=== PATIENT | male | born 1950 | race Caucasian/White ===

== ENCOUNTER 2017-10-03 16:51 | Inpatient (IN) | payer OTHER ==
[~2017-10-03] VITALS: Ht 167.6 cm; Wt 102.0 kg
[2017-10-03] MEDS ORDERED: ASPIRIN 81 MG CHEW PO STA (17:13)
--- NOTE | 2017-10-03 17:17 | EMERGENCY ROOM VISIT NOTE ---
History Report prepared by Aleja: Fermin Rob Under the Supervision of: Dr. Adelso Mitchell D.O. First contact with patient: 17:08 Chief Complaint: CHEST PAIN Stated Complaint: CHEST PAIN. WEAKNESS Nursing Triage Summary: "fullness in chest into neck", x3-4 days. Lighteheaded, CERVANTES and SOB. Hx of heart cath 4 years ago, "they didn't find nothing" History of Present Illness The patient is a 67 year old male who presents to the Emergency Room with complaints of an intermittent chest pain and pressure that began yesterday. The patient states that his chest pain feels like a heaviness and radiates into his neck. His states that the patient has had a bad headache for 1 week and appears more fatigued than usual. She notes that he has also had a sluggish gait. The patient states he does not have a headache at the moment. He complains of nausea. He denies abdominal pain, and vomiting. He reports a history of a heart attack 4 years ago and denies stent placement. Source of History: patient Onset: 1 day ago Position: chest Quality: pressure Timing: intermittent Associated Symptoms: + neck pain, + nausea, + fatigue, No vomiting, No abdominal pain Note: notes sluggish gait. Review of Systems See HPI for pertinent positives & negatives. A total of 10 systems reviewed and were otherwise negative. Past Medical & Surgical Medical Problems: (1) Chest tightness or pressure (2) Heart attack (3) Weakness Family History No pertinent family history stated. Social History Smoking Status: Never Smoker Marital Status: Housing Status: lives with significant other Occupation Status: retired Current/Historical Medications Scheduled Gabapentin (Neurontin), 300 MG PO TID Losartan Potassium (Cozaar), 50 MG PO DAILY Meloxicam (Mobic), 15 MG PO DAILY Scheduled PRN Acetaminophen (Tylenol), 1,000 MG PO Q6 PRN for Pain Physical Exam Vital Signs Date Time Temp Pulse Resp B/P (MAP) Pulse Ox O2 Delivery O2 Flow Rate FiO2 10/03/17 20:36 57 169/87 96 Room Air 10/03/17 20:03 149/115 10/03/17 20:00 60 15 95 10/03/17 19:31 141/108 10/03/17 19:30 58 15 96 10/03/17 19:27 57 169/89 96 Room Air 10/03/17 19:25 169/89 10/03/17 18:31 151/88 10/03/17 18:01 134/86 10/03/17 17:57 144/79 10/03/17 17:56 57 144/79 93 Room Air 10/03/17 17:21 78 17 96 10/03/17 17:20 61 10/03/17 17:18 62 21 162/86 95 Room Air 10/03/17 17:18 162/86 10/03/17 17:17 95 Room Air 10/03/17 17:17 95 Room Air 10/03/17 16:59 95 Room Air 10/03/17 16:56 36.5 63 22 185/85 95 Room Air Physical Exam GENERAL: Patient is awake, alert, and in no acute distress. Patient is resting comfortably and showing no signs of anxiety EYES: The conjunctivae are clear. The pupils are round and reactive. EARS, NOSE, MOUTH AND THROAT: The nose is without any evidence of any deformity. Mucous membranes are moist tongue is midline NECK: The neck is nontender and supple. RESPIRATORY: Normal respiratory effort is noted there is no evidence of wheezing rhonchi or rales CARDIOVASCULAR: Regular rate and rhythm noted there no murmurs rubs or gallops normal S1 normal S2 GASTROINTESTINAL: The abdomen is soft. Bowel sounds are present in all quadrants. Abdomen is nontender MUSCULOSKELETAL/EXTREMITIES: There is no evidence of gross deformity full range of motion is noted in the hips and shoulders SKIN: There is no obvious evidence of any rash. There are no petechiae, pallor or cyanosis noted. NEUROLOGIC: Patient is awake alert and oriented x3 strength is symmetric patellar reflexes are 2+ bilaterally Medical Decision & Procedures ER Provider Diagnostic Interpretation: Radiology results as stated below per my review and radiologist interpretation: HEAD WITHOUT CONTRAST (CT) CLINICAL HISTORY: 67 years-old Male with CERVANTES. Acute headache TECHNIQUE: Multiple axial CT images of the head were obtained without contrast. A dose lowering technique was utilized adhering to the principles of ALARA. CT DOSE: 601.98 mGy.cm COMPARISON: None. FINDINGS: No acute intracranial hemorrhage, midline shift, intracranial mass, hydrocephalus, territorial ischemia or abnormal extra-axial collection. Minimal brain atrophy. Ill-defined areas of low-attenuation within the periventricular white matter suggests minimal chronic microvascular ischemic changes. The calvarium is intact. The paranasal sinuses, mastoid air cells, and middle ear cavities are clear. IMPRESSION: No acute intracranial abnormality. The above report was generated using voice recognition software. It may contain grammatical, syntax or spelling errors. Electronically signed by: Clive Cuevas M.D. 10/03/2017 5:46 PM Dictated Date/Time: 10/03/2017 5:40 PM CHEST ONE VIEW PORTABLE CLINICAL HISTORY: 67 years-old Male presenting with CHEST PAIN. TECHNIQUE: Portable upright AP view of the chest was obtained. COMPARISON: None. FINDINGS: Image quality is degraded by portable technique and body habitus. Mildly low lung volumes with hypoventilatory changes. Resulting mild prominence of the cardiac silhouette. Lungs and pleural spaces otherwise clear. Osseous structures normal. Upper abdomen normal. IMPRESSION: 1. Mildly low lung volumes. No imaging evidence of acute cardiopulmonary disease allowing for degraded image quality. Electronically signed by: Iker Cantu M.D. 10/03/2017 5:33 PM Dictated Date/Time: 10/03/2017 5:33 PM CHEST COMBO ANGIO DISSECTION CLINICAL HISTORY: 67 years-old Male presenting with chest and neck pain. TECHNIQUE: Multidetector CT angiography of the chest was performed before and after the administration of intravenous contrast. 3-D volumetric and/or maximum intensity projection (MIP) images were subsequently reconstructed for review. IV contrast: 116 mL of Optiray 320. A dose lowering technique was used consistent with the principles of ALARA (as low as reasonably achievable). Stenosis measurements were based on NASCET-like criteria. COMPARISON: None. CT DOSE (mGy.cm): The estimated cumulative dose is 2556.70 inclusive of the CTA neck. 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 Vasculature: The study is adequate for assessment of the aorta. Initial current noncontrast imaging demonstrates no evidence of intramural hematoma or postsurgical change of the aorta. Postcontrast imaging demonstrates a normal caliber aorta with trace atherosclerosis. No evidence of acute aortic injury. Allowing for the phase of contrast, no filling defect within the pulmonary arteries to suggest embolus. Main pulmonary artery is not enlarged. No flattening of the interventricular septum. No intracardiac intracardiac filling defect. No reflux of contrast into the hepatic veins. On soft tissue windows, normal thyroid and thoracic inlet. No axillary, supraclavicular, hilar, or mediastinal lymphadenopathy. Mild coronary artery calcification. Normal heart size. No pericardial or pleural effusion. Upper abdomen normal. On lung windows, minimal dependent changes likely atelectasis. Solid peripheral 4 mm nodule at the posterior basal right lower lobe (series 6 image 245). Fissural and subpleural nodules in the right lung, the largest measuring 5 mm (see series 6 image 170). Ovoid solid peripheral 7 mm nodule at the right apex (series 6 image 69) multiple solid subpleural nodules in the left upper lobe, the largest measuring 6 mm (series 6 image 141). Several fissural punctate nodules noted in the left lung. Large airways patent. On bone windows, mild degenerative changes of the thoracic spine. Exaggerated thoracic kyphosis without a focal compression deformity. Osteopenia. IMPRESSION: 1. No acute aortic injury or evidence of pulmonary embolus. 2. No acute intrathoracic pathology. 3. Multiple bilateral solid pulmonary nodules the largest measuring 7 mm. Follow-up per [employer] Society 2017 recommendations below. 4. Osteopenia. Please refer to below summary of Fleischner Society 2017 recommendations for follow-up of incidental CT nodules (H Ligia et al. Guidelines for management of incidental pulmonary nodules detected on CT images: From the Fleischner Society 2017. Radiology 2017; 284: 228-243.) SOLID NODULES Single nodule; size < 6 mm * Low risk patients: No routine follow-up * High risk patients: Optional CT at 12 months Single nodule; size 6-8 mm * Low risk patients: CT at 6-12 months, then consider CT at 18-24 months * High risk patients: CT at 6-12 months, then at 18-24 months Single nodule; size > 8 mm * Either low or high risk patients: Considered CT at 3 months, PET/CT, or tissue sampling Multiple nodules; size < 6 mm * Low risk patients: No routine follow up * High risk patients: Optional CT at 12 months Multiple nodules; size 6-8 mm * Low risk patients: CT at 3-6 months, then consider CT at 18-24 months * High risk patients: CT at 3-6 months, then at 18-24 months Multiple nodules; size > 8 mm * Low risk patients: CT at 3-6 months, then consider at 18-24 months * High risk patients: CT at 3-6 months, then at 18-24 months Note: These guidelines apply to incidental nodules. These guidelines do not apply to patients younger than 35 years, immunocompromised patients, or patients with cancer. * Low risk patients: Minimal or absent history of smoking and/or other known risk factors * High risk patients: History of smoking, exposure to other carcinogens, emphysema, fibrosis, upper lobe location, family history of lung cancer, etc. * If a nodule up to 8 mm is partly solid or is ground glass, further follow-up is required after 24 months to exclude possible slow growing adenocarcinoma. SUBSOLID NODULES Single ground-glass nodule * Nodule size < 6 mm: No routine follow-up * Nodule size > or = 6 mm: CT at 6-12 months to confirm persistence, then CT every 2 years until 5 years Single part-solid nodule * Nodule size < 6 mm: No routine follow-up * Nodules size > or = 6 mm: CT at 3-6 months to confirm persistence. If unchanged and solid component remains < 6 mm, annual CT should be performed for 5 years Multiple nodules * Nodule size < 6 mm: CT at 3-6 months. If stable, consider CT at 2 and 4 years. * Nodules size > or = 6 mm: CT at 3-6 months. Subsequent management based on the most suspicious nodule(s) Electronically signed by: Iker Cantu M.D. 10/03/2017 7:08 PM Dictated Date/Time: 10/03/2017 7:01 PM NECK ANGIO WITH CONTRAST CLINICAL HISTORY: 67 years-old Male presenting with neck pain. TECHNIQUE: Multidetector CT angiography of the neck was performed after the administration of intravenous contrast. 3-D volumetric and/or maximum intensity projection (MIP) images were subsequently reconstructed for review. IV contrast: 116 mL of Optiray 320. A dose lowering technique was used consistent with the principles of ALARA (as low as reasonably achievable). Stenosis measurements were based on NASCET-like criteria. COMPARISON: None. CT DOSE (mGy.cm): The estimated cumulative dose is 2556.70 mGy.cm. 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 Three-vessel aortic arch with patent origins of the branch vessels. Bilateral common and internal carotid arteries patent. Limited atherosclerosis of the carotid bulbs without significant luminal narrowing. Codominant vertebral arteries with patent origins and courses. No evidence of dissection, focal vessel occlusion, or significant stenosis. Limited intracranial evaluation within normal limits. Degenerative changes of the spine. Lung apices clear. IMPRESSION: 1. No evidence of dissection, focal vessel occlusion, or significant stenosis of the cervical arteries. 2. Degenerative changes of the spine. Electronically signed by: Iker Cantu M.D. 10/03/2017 7:01 PM Dictated Date/Time: 10/03/2017 6:58 PM Laboratory Results 10/03/17 17:15 Red Blood Count 4.75, Mean Corpuscular Volume 93.1, Mean Corpuscular Hemoglobin 32.4, Mean Corpuscular Hemoglobin Concent 34.8, Mean Platelet Volume 11.6, Neutrophils (%) (Auto) 68.3, Lymphocytes (%) (Auto) 21.2, Monocytes (%) (Auto) 8.1, Eosinophils (%) (Auto) 1.4, Basophils (%) (Auto) 0.6, Neutrophils # (Auto) 8.07, Lymphocytes # (Auto) 2.51, Monocytes # (Auto) 0.96, Eosinophils # (Auto) 0.16, Basophils # (Auto) 0.07 10/03/17 17:15 Test 10/03/17 17:15 10/03/17 17:22 White Blood Count 11.82 K/uL (4.8-10.8) Red Blood Count 4.75 M/uL (4.7-6.1) Hemoglobin 15.4 g/dL (14.0-18.0) Hematocrit 44.2 % (42-52) Mean Corpuscular Volume 93.1 fL (80-100) Mean Corpuscular Hemoglobin 32.4 pg (25-34) Mean Corpuscular Hemoglobin Concent 34.8 g/dl (32-36) Platelet Count 215 K/uL (130-400) Mean Platelet Volume 11.6 fL (7.4-10.4) Neutrophils (%) (Auto) 68.3 % Lymphocytes (%) (Auto) 21.2 % Monocytes (%) (Auto) 8.1 % Eosinophils (%) (Auto) 1.4 % Basophils (%) (Auto) 0.6 % Neutrophils # (Auto) 8.07 K/uL (1.4-6.5) Lymphocytes # (Auto) 2.51 K/uL (1.2-3.4) Monocytes # (Auto) 0.96 K/uL (0.11-0.59) Eosinophils # (Auto) 0.16 K/uL (0-0.5) Basophils # (Auto) 0.07 K/uL (0-0.2) RDW Standard Deviation 45.3 fL (36.4-46.3) RDW Coefficient of Variation 13.3 % (11.5-14.5) Immature Granulocyte % (Auto) 0.4 % Immature Granulocyte # (Auto) 0.05 K/uL (0.00-0.02) Prothrombin Time 10.3 SECONDS (9.0-12.0) Prothromb Time International Ratio 1.0 (0.9-1.1) Activated Partial Thromboplast Time 26.4 SECONDS (21.0-31.0) Partial Thromboplastin Ratio 1.0 Anion Gap 6.0 mmol/L (3-11) Est Creatinine Clear Calc Drug Dose 71.0 ml/min Estimated GFR () 75.6 Estimated GFR (Non- 65.3 BUN/Creatinine Ratio 13.6 (10-20) Calcium Level 8.9 mg/dl (8.5-10.1) Magnesium Level 2.2 mg/dl (1.8-2.4) Total Bilirubin 0.3 mg/dl (0.2-1) Direct Bilirubin < 0.1 mg/dl (0-0.2) Aspartate Amino Transf (AST/SGOT) 17 U/L (15-37) Alanine Aminotransferase (ALT/SGPT) 20 U/L (12-78) Alkaline Phosphatase 100 U/L (45-117) Total Creatine Kinase 53 U/L (39-308) Creatine Kinase MB 0.5 ng/ml (0.5-3.6) Creatine Kinase MB Ratio 0.9 (0-3.0) Troponin I < 0.015 ng/ml (0-0.045) Total Protein 7.9 gm/dl (6.4-8.2) Albumin 4.0 gm/dl (3.4-5.0) Lipase 167 U/L (73-393) Bedside D-Dimer 354 ng/mlFEU (0-450) Laboratory results per my review. Medications Administered Medications (Trade) Dose Ordered Sig/Christal Route Start Time Stop Time Status Last Admin Dose Admin Aspirin (Aspirin Chew) 324 mg NOW STAT PO 10/03/17 17:13 10/03/17 17:15 DC 10/03/17 17:20 324 MG Nitroglycerin (Nitroglycerin 2% Oint) 0.5 inch NOW ONCE EXT 10/03/17 19:15 10/03/17 19:16 DC 10/03/17 19:15 0.5 INCH ECG Indication: chest pain Rate (beats per minute): 63 Rhythm: normal sinus Findings: no ectopy, other (No ST abnormality) Comparison ECG Date: no prior available ED Course 1707: The patient was evaluated in room C7. A complete history and physical examination were performed. 1712: Aspirin 324mg PO. 1813: I spoke with the patient about a dissection study. 1914: Nitroglycerin 0.5 inch EXT. 1926: I reevaluated the patient and spoke to him about admission. 1954: I discussed the patient's case with Dr. Nelson of [facility]. The patient will be evaluated for further management. 2011: Upon reevaluation, the patient is doing better. I discussed results and treatment plan with him. He verbalizes agreement and understanding. I spoke with Dr. Nelson of the [facility]. The patient will be evaluated for further management and care. Medical Decision Differential diagnosis: Etiologies such as cardiac ischemia, aortic dissection, pulmonary embolism, pneumonia, pneumothorax, musculoskeletal, infections, pericarditis, myocarditis , esophageal rupture, gastrointestinal, as well as others were entertained. Nursing notes reviewed. The patient is a 67-year-old male who presented to the emergency department for evaluation of chest discomfort. The patient describes a pressure over the anterior part of his chest. He also states that this pain radiates into his neck and sometimes it's associated with a headache. The patient has had ongoing symptoms all day. He states the pain is moderate. His significant other states that at times he's been having problems with diaphoresis associated with the pain. Patient was treated with aspirin and nitroglycerin in the emergency department. I discussed the patient's laboratory radiographic studies with him. I also discussed the limitations of the emergency department workup for chest pain with him. Given the patient's risk factors and comorbidities I discussed his case with the on-call [facility] hospitalist. They have agreed to evaluate the patient in the emergency department for further management and disposition. The patient was felt to be at risk for a vascular cause for his pain. CT angiography the neck and chest were obtained. Medication Reconcilliation Current Medication List: was personally reviewed by me Blood Pressure Screening Patient's blood pressure: Elevated blood pressure Blood pressure disposition: Elevated BP felt to be situational Consults Time Called: 1949 Consulting Physician: Dr. Nelson - [facility] Returned Call: 1954 I discussed the patient's case with Dr. Nelson of [facility]. The patient will be evaluated for further management. Impression Primary Impression: Chest pain Additional Impression: Neck pain Scribe Attestation The scribe's documentation has been prepared under my direction and personally reviewed by me in its entirety. I confirm that the note above accurately reflects all work, treatment, procedures, and medical decision making performed by me. Departure Information Dispostion Being Evaluated By Hospitalist Referrals Gio Nova PA-C (PCP) Patient Instructions My [facility] Problem Qualifiers Primary Impression: Chest pain Chest pain type: unspecified Qualified Codes: R07.9 - Chest pain, unspecified
[2017-10-03 17:29] LABS: BASO % 0.6 %; BASO ABS # 0.07 K/uL (0-0.2); COMPLETE YES; EOS % 1.4 %; HEMATOCRIT 44.2 % (42-52); IG% 0.4 %; LYMPH % 21.2 %; LYMPH ABS # 2.51 K/uL (1.2-3.4); MEAN CELL VOLUME 93.1 fL (80-100); MEAN CORPUSCULAR HEMOGLOBIN 32.4 pg (25-34); MEAN CORPUSCULAR HGB CONC 34.8 g/dl (32-36); MEAN PLATELET VOLUME 11.6 fL (7.4-10.4); MONO % 8.1 %; NEUT % 68.3 %; PLATELET COUNT 215 K/uL (130-400); RED BLOOD COUNT 4.75 M/uL (4.7-6.1); WHITE BLOOD COUNT 11.82 K/uL (4.8-10.8)
--- NOTE | 2017-10-03 17:35 | DIAGNOSTIC IMAGING REPORT ---
CHEST ONE VIEW PORTABLE CLINICAL HISTORY: 67 years-old Male presenting with CHEST PAIN. TECHNIQUE: Portable upright AP view of the chest was obtained. COMPARISON: None. FINDINGS: Image quality is degraded by portable technique and body habitus. Mildly low lung volumes with hypoventilatory changes. Resulting mild prominence of the cardiac silhouette. Lungs and pleural spaces otherwise clear. Osseous structures normal. Upper abdomen normal. IMPRESSION: 1. Mildly low lung volumes. No imaging evidence of acute cardiopulmonary disease allowing for degraded image quality. Electronically signed by: Iker Cantu M.D. 10/03/2017 5:33 PM Dictated Date/Time: 10/03/2017 5:33 PM
[2017-10-03] MEDS ORDERED: MELO15TA10 PO (17:40)
--- NOTE | 2017-10-03 17:47 | DIAGNOSTIC IMAGING REPORT ---
HEAD WITHOUT CONTRAST (CT) CLINICAL HISTORY: 67 years-old Male with CERVANTES. Acute headache TECHNIQUE: Multiple axial CT images of the head were obtained without contrast. A dose lowering technique was utilized adhering to the principles of ALARA. CT DOSE: 601.98 mGy.cm COMPARISON: None. FINDINGS: No acute intracranial hemorrhage, midline shift, intracranial mass, hydrocephalus, territorial ischemia or abnormal extra-axial collection. Minimal brain atrophy. Ill-defined areas of low-attenuation within the periventricular white matter suggests minimal chronic microvascular ischemic changes. The calvarium is intact. The paranasal sinuses, mastoid air cells, and middle ear cavities are clear. IMPRESSION: No acute intracranial abnormality. The above report was generated using voice recognition software. It may contain grammatical, syntax or spelling errors. Electronically signed by: Clive Cuevas M.D. 10/03/2017 5:46 PM Dictated Date/Time: 10/03/2017 5:40 PM
[2017-10-03 17:48] LABS: PROTHROMBIN TIME (PATIENT) 10.3 SECONDS (9.0-12.0)
[2017-10-03 17:49] LABS: ALT/SGPT 20 U/L (12-78); BLOOD UREA NITROGEN 16 mg/dl (7-18); BUN/CREATININE RATIO 13.6 (10-20); CALCIUM 8.9 mg/dl (8.5-10.1); CARBON DIOXIDE 28 mmol/L (21-32); CHLORIDE 105 mmol/L (98-107); CREATININE 1.16 mg/dl (0.60-1.40); GLUCOSE 112 mg/dl (70-99); MAGNESIUM 2.2 mg/dl (1.8-2.4); POTASSIUM 3.9 mmol/L (3.5-5.1); SODIUM 139 mmol/L (136-145)
[2017-10-03 17:52] LABS: ALKALINE PHOSPHATASE 100 U/L (45-117); AST/SGOT 17 U/L (15-37); CKMB/CK RATIO 0.9 (0-3.0)
--- NOTE | 2017-10-03 19:02 | DIAGNOSTIC IMAGING REPORT ---
NECK ANGIO WITH CONTRAST CLINICAL HISTORY: 67 years-old Male presenting with neck pain. TECHNIQUE: Multidetector CT angiography of the neck was performed after the administration of intravenous contrast. 3-D volumetric and/or maximum intensity projection (MIP) images were subsequently reconstructed for review. IV contrast: 116 mL of Optiray 320. A dose lowering technique was used consistent with the principles of ALARA (as low as reasonably achievable). Stenosis measurements were based on NASCET-like criteria. COMPARISON: None. CT DOSE (mGy.cm): The estimated cumulative dose is 2556.70 mGy.cm. 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 Three-vessel aortic arch with patent origins of the branch vessels. Bilateral common and internal carotid arteries patent. Limited atherosclerosis of the carotid bulbs without significant luminal narrowing. Codominant vertebral arteries with patent origins and courses. No evidence of dissection, focal vessel occlusion, or significant stenosis. Limited intracranial evaluation within normal limits. Degenerative changes of the spine. Lung apices clear. IMPRESSION: 1. No evidence of dissection, focal vessel occlusion, or significant stenosis of the cervical arteries. 2. Degenerative changes of the spine. Electronically signed by: Iker Cantu M.D. 10/03/2017 7:01 PM Dictated Date/Time: 10/03/2017 6:58 PM
--- NOTE | 2017-10-03 19:10 | DIAGNOSTIC IMAGING REPORT ---
CHEST COMBO ANGIO DISSECTION CLINICAL HISTORY: 67 years-old Male presenting with chest and neck pain. TECHNIQUE: Multidetector CT angiography of the chest was performed before and after the administration of intravenous contrast. 3-D volumetric and/or maximum intensity projection (MIP) images were subsequently reconstructed for review. IV contrast: 116 mL of Optiray 320. A dose lowering technique was used consistent with the principles of ALARA (as low as reasonably achievable). Stenosis measurements were based on NASCET-like criteria. COMPARISON: None. CT DOSE (mGy.cm): The estimated cumulative dose is 2556.70 inclusive of the CTA neck. FINDINGS: [employer] topogram: Unremarkable. Vasculature: The study is adequate for assessment of the aorta. Initial current noncontrast imaging demonstrates no evidence of intramural hematoma or postsurgical change of the aorta. Postcontrast imaging demonstrates a normal caliber aorta with trace atherosclerosis. No evidence of acute aortic injury. Allowing for the phase of contrast, no filling defect within the pulmonary arteries to suggest embolus. Main pulmonary artery is not enlarged. No flattening of the interventricular septum. No intracardiac intracardiac filling defect. No reflux of contrast into the hepatic veins. On soft tissue windows, normal thyroid and thoracic inlet. No axillary, supraclavicular, hilar, or mediastinal lymphadenopathy. Mild coronary artery calcification. Normal heart size. No pericardial or pleural effusion. Upper abdomen normal. On lung windows, minimal dependent changes likely atelectasis. Solid peripheral 4 mm nodule at the posterior basal right lower lobe (series 6 image 245). Fissural and subpleural nodules in the right lung, the largest measuring 5 mm (see series 6 image 170). Ovoid solid peripheral 7 mm nodule at the right apex (series 6 image 69) multiple solid subpleural nodules in the left upper lobe, the largest measuring 6 mm (series 6 image 141). Several fissural punctate nodules noted in the left lung. Large airways patent. On bone windows, mild degenerative changes of the thoracic spine. Exaggerated thoracic kyphosis without a focal compression deformity. Osteopenia. IMPRESSION: 1. No acute aortic injury or evidence of pulmonary embolus. 2. No acute intrathoracic pathology. 3. Multiple bilateral solid pulmonary nodules the largest measuring 7 mm. Follow-up per [employer] Society 2017 recommendations below. 4. Osteopenia. Please refer to below summary of Fleischner Society 2017 recommendations for follow-up of incidental CT nodules (H Ligia et al. Guidelines for management of incidental pulmonary nodules detected on CT images: From the Fleischner Society 2017. Radiology 2017; 284: 228-243.) SOLID NODULES Single nodule; size < 6 mm * Low risk patients: No routine follow-up * High risk patients: Optional CT at 12 months Single nodule; size 6-8 mm * Low risk patients: CT at 6-12 months, then consider CT at 18-24 months * High risk patients: CT at 6-12 months, then at 18-24 months Single nodule; size > 8 mm * Either low or high risk patients: Considered CT at 3 months, PET/CT, or tissue sampling Multiple nodules; size < 6 mm * Low risk patients: No routine follow up * High risk patients: Optional CT at 12 months Multiple nodules; size 6-8 mm * Low risk patients: CT at 3-6 months, then consider CT at 18-24 months * High risk patients: CT at 3-6 months, then at 18-24 months Multiple nodules; size > 8 mm * Low risk patients: CT at 3-6 months, then consider at 18-24 months * High risk patients: CT at 3-6 months, then at 18-24 months Note: These guidelines apply to incidental nodules. These guidelines do not apply to patients younger than 35 years, immunocompromised patients, or patients with cancer. * Low risk patients: Minimal or absent history of smoking and/or other known risk factors * High risk patients: History of smoking, exposure to other carcinogens, emphysema, fibrosis, upper lobe location, family history of lung cancer, etc. * If a nodule up to 8 mm is partly solid or is ground glass, further follow-up is required after 24 months to exclude possible slow growing adenocarcinoma. SUBSOLID NODULES Single ground-glass nodule * Nodule size < 6 mm: No routine follow-up * Nodule size > or = 6 mm: CT at 6-12 months to confirm persistence, then CT every 2 years until 5 years Single part-solid nodule * Nodule size < 6 mm: No routine follow-up * Nodules size > or = 6 mm: CT at 3-6 months to confirm persistence. If unchanged and solid component remains < 6 mm, annual CT should be performed for 5 years Multiple nodules * Nodule size < 6 mm: CT at 3-6 months. If stable, consider CT at 2 and 4 years. * Nodules size > or = 6 mm: CT at 3-6 months. Subsequent management based on the most suspicious nodule(s) Electronically signed by: Iker Cantu M.D. 10/03/2017 7:08 PM Dictated Date/Time: 10/03/2017 7:01 PM
[2017-10-03] MEDS ORDERED: NITROGLYCERIN OINT 2% 1GM PACKET EXT ONE (19:15)
[2017-10-03] MEDS ORDERED: POLYETHYLENE (MIRALAX) 17 GM PACK PO PRN (20:15)
[2017-10-03] MEDS ORDERED: ALUMINUM/MAGNESIUM/SIMETH (MAALOX MAX) 30 ML UDC PO PRN (20:15)
[2017-10-03] MEDS ORDERED: NITROGLYCERIN 0.4 MG SL PER TAB CHARGE SL PRN (20:15)
[2017-10-03] MEDS ORDERED: ONDANSETRON INJ 2 MG/ML 2 ML VIAL IV PRN (20:15)
[2017-10-03] MEDS ORDERED: MAGNESIUM HYDROXIDE SUSP 30 ML UDC PO PRN (20:15)
[2017-10-03] MEDS ORDERED: PATIENT'S ALLERGY INFO NEEDS ENTERED SCH (20:45)
--- NOTE | 2017-10-03 20:59 | History and Physical ---
History & Physical Date & Time of Service: Oct 03, 2017 at 20:32 Chief Complaint: Chest Pain. Weakness Primary Care Physician: Florentin Sultana D.O. History of Present Illness Source: patient, family This is a 67 y/o M w/ a h/o HTN who presents with a 1 week history of persistent midsternal chest pressure. He says that this is not chest pain but pressure that radiates to his neck and back. He characterizes the pain as dull and achy and as "something heavy on his chest". Not particularly worse or better with exertion or rest. Slightly worse with inspiration. This is accompanied by nausea, weakness and dizziness. His family says that he's had a similar episode about 4 years ago and was evaluated at [facility]. He supposedly had a cath that was clean. He denies any recent heavy lifting. In the ED, he was evaluated for PE, dissection, both of which were negative. He reports that his back pain is worse after the CT scan. He also reports some blurry vision and numbness tingling of his fingers bilaterally, that is new. Also reports intermittent headache. Denies any history of [place]/Strokes. Quit smoking 20 years ago. 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 Past Medical/Surgical History Medical Problems: (1) Heart attack Status: Resolved Social History Smoking Status: Never Smoker Marital Status: Occupational Status: retired Home Medications Scheduled Gabapentin (Neurontin), 300 MG PO TID Losartan Potassium (Cozaar), 50 MG PO DAILY Meloxicam (Mobic), 15 MG PO DAILY Scheduled PRN Acetaminophen (Tylenol), 1,000 MG PO Q6 PRN for Pain Review of Systems Constitutional: + weakness, + fatigue, No fever, No chills, No sweats Eyes: + problem reported (blurry vision) Respiratory: No cough, No sputum, No wheezing, No shortness of breath, No dyspnea on exertion, No dyspnea at rest Cardiovascular: + problem reported (chest pressure) Abdomen: + nausea, No pain, No vomiting, No diarrhea, No constipation Musculoskeletal: + muscle pain, No swelling, No calf pain Genitourinary - Male: No hematuria, No dysuria, No urinary frequency, No urinary urgency Neurologic: + weakness, + numbness/tingling, + balance problems Physical Exam Vital Signs Date Time Temp Pulse Resp B/P (MAP) Pulse Ox O2 Delivery O2 Flow Rate FiO2 10/03/17 20:03 149/115 10/03/17 20:00 60 15 95 10/03/17 19:31 141/108 10/03/17 19:30 58 15 96 10/03/17 19:27 57 169/89 96 Room Air 10/03/17 19:25 169/89 10/03/17 18:31 151/88 10/03/17 18:01 134/86 10/03/17 17:57 144/79 10/03/17 17:56 57 144/79 93 Room Air 10/03/17 17:21 78 17 96 10/03/17 17:20 61 10/03/17 17:18 62 21 162/86 95 Room Air 10/03/17 17:18 162/86 10/03/17 17:17 95 Room Air 10/03/17 17:17 95 Room Air 10/03/17 16:59 95 Room Air 10/03/17 16:56 36.5 63 22 185/85 95 Room Air General Appearance: no apparent distress Eyes: PERRL, sclerae normal, + abnormal EOM ENT: hearing grossly normal, pharynx normal Neck: supple, no adenopathy Respiratory/Chest: lungs clear, normal breath sounds, no respiratory distress, no accessory muscle use Cardiovascular: no edema, no murmur, normal peripheral pulses, + bradycardia Abdomen/GI: normal bowel sounds, non tender, soft Back: + muscle spasm Extremities/Musculoskelatal: no calf tenderness, no pedal edema 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 (some deficits with peripheral vision bilaterally), alert, normal mood/affect, normal reflexes, oriented x 3 Diagnostics Laboratory Results Results Past 24 Hours Test 10/03/17 17:15 10/03/17 17:22 Range/Units White Blood Count 11.82 4.8-10.8 K/uL Red Blood Count 4.75 4.7-6.1 M/uL Hemoglobin 15.4 14.0-18.0 g/dL Hematocrit 44.2 42-52 % Mean Corpuscular Volume 93.1 80-100 fL Mean Corpuscular Hemoglobin 32.4 25-34 pg Mean Corpuscular Hemoglobin Concent 34.8 32-36 g/dl Platelet Count 215 130-400 K/uL Mean Platelet Volume 11.6 7.4-10.4 fL Neutrophils (%) (Auto) 68.3 % Lymphocytes (%) (Auto) 21.2 % Monocytes (%) (Auto) 8.1 % Eosinophils (%) (Auto) 1.4 % Basophils (%) (Auto) 0.6 % Neutrophils # (Auto) 8.07 1.4-6.5 K/uL Lymphocytes # (Auto) 2.51 1.2-3.4 K/uL Monocytes # (Auto) 0.96 0.11-0.59 K/uL Eosinophils # (Auto) 0.16 0-0.5 K/uL Basophils # (Auto) 0.07 0-0.2 K/uL RDW Standard Deviation 45.3 36.4-46.3 fL RDW Coefficient of Variation 13.3 11.5-14.5 % Immature Granulocyte % (Auto) 0.4 % Immature Granulocyte # (Auto) 0.05 0.00-0.02 K/uL Prothrombin Time 10.3 9.0-12.0 SECONDS Prothromb Time International Ratio 1.0 0.9-1.1 Activated Partial Thromboplast Time 26.4 21.0-31.0 SECONDS Partial Thromboplastin Ratio 1.0 Sodium Level 139 136-145 mmol/L Potassium Level 3.9 3.5-5.1 mmol/L Chloride Level 105 98-107 mmol/L Carbon Dioxide Level 28 21-32 mmol/L Anion Gap 6.0 3-11 mmol/L Blood Urea Nitrogen 16 7-18 mg/dl Creatinine 1.16 0.60-1.40 mg/dl Est Creatinine Clear Calc Drug Dose 71.0 ml/min Estimated GFR () 75.6 Estimated GFR (Non- 65.3 BUN/Creatinine Ratio 13.6 10-20 Random Glucose 112 70-99 mg/dl Calcium Level 8.9 8.5-10.1 mg/dl Magnesium Level 2.2 1.8-2.4 mg/dl Total Bilirubin 0.3 0.2-1 mg/dl Direct Bilirubin < 0.1 0-0.2 mg/dl Aspartate Amino Transf (AST/SGOT) 17 15-37 U/L Alanine Aminotransferase (ALT/SGPT) 20 12-78 U/L Alkaline Phosphatase 100 45-117 U/L Total Creatine Kinase 53 39-308 U/L Creatine Kinase MB 0.5 0.5-3.6 ng/ml Creatine Kinase MB Ratio 0.9 0-3.0 Troponin I < 0.015 0-0.045 ng/ml Total Protein 7.9 6.4-8.2 gm/dl Albumin 4.0 3.4-5.0 gm/dl Lipase 167 73-393 U/L Bedside D-Dimer 354 0-450 ng/mlFEU Impression Assessment and Plan This is a 67 y/o M who presents with persistent chest pressure, weakness/ dizziness. On exam, it was noted that he was possibly having some difficulty with his peripheral vision vs extra occular muscles. Head Ct was negative, we will do an MRI. With respect to his chest pressure, Other imaging was negative for PE and Dissection. Chest Pain rule out Initial troponin negative. EKG without any st changes or ectopy Serial troponin Stress echo AM- dobutamine stress ordered due to patient having weak ankles/ knees Consult Cardiology Weakness/dizziness/intermittent blurry vision Concern for CVA Will do a Brain MRI Head CT negative Lipid Panel consider consulting Optho if mri negative. HTN Continue Cozaar DVT proph Lovenox Code Full Resident Physician Supervision Note: Pt evaluated independently. I discussed the case with the resident and agree with the findings and plan as documented in the note. Any exceptions or clarifications are listed here: 67 y/o M Hx HTN - presenting with chest pressure, dizziness and occasional blurred vision. CP has been present for 1 wk. Initial w/u including CTA and MRI brain are negative. OE AAO x 3 S1,2 R CTAB NT, ND No deficits noted - may have difficulty focusing vision P: Will be ruled out for TX We may need to consult neuro or ophtho if visual symptoms persist as a source has not been identified Will check an ESR/CRP to r/o autoimmune etiology Documented By: Tacos Nelson VTE Prophylaxis VTE Risk Assessment Done? Y/N: Yes Risk Level: Moderate
[2017-10-03] MEDS ORDERED: GADAVIST IV PRN (21:25)
--- NOTE | 2017-10-03 21:53 | DIAGNOSTIC IMAGING REPORT ---
BRAIN COMBO CLINICAL HISTORY: 67 years-old Male presenting with vision changes, dizziness, weakness. TECHNIQUE: Multisequence, multiplanar MR imaging of the brain was performed before and after the administration of intravenous contrast. IV contrast: 10 mm of Gadavist. COMPARISON: CT head performed earlier the same day. FINDINGS: Image quality is degraded by motion artifact though this does not significantly limit diagnostic sensitivity. Ventricles and sulci normal in size. Periventricular and subcortical white matter T2/FLAIR hyperintensity, nonspecific but likely indicative of chronic small vessel ischemic change. No mass effect or midline shift. No restricted diffusion to suggest acute ischemia. No hemorrhage. No extra-axial fluid collection. T2 skull base flow voids preserved. No abnormal parenchymal enhancement. Bone marrow signal intensity within the calvarium within normal limits. IMPRESSION: 1. No acute intracranial pathology. No abnormal enhancement. Electronically signed by: Iker Cantu M.D. 10/03/2017 9:52 PM Dictated Date/Time: 10/03/2017 9:45 PM
[2017-10-03 22:40] VITALS: BP 186/84; PULSE 61; TEMP 36.7; O2SAT 98
[2017-10-03 23:19] VITALS: BP 186/84; PULSE 61; TEMP 36.7; Ht 167.6 cm; Wt 102.0 kg
[2017-10-03] MEDS: ACETAMINOPHEN 325 MG TAB PO PRN (23:40)
[2017-10-03] MEDS: GABAPENTIN 300 MG CAP PO SCH (23:40)
[2017-10-04] VITALS (10 sets, daily range): BP systolic 126–159; BP diastolic 75–89; PULSE 52–63; TEMP 36.5–36.7; O2SAT 94–98
[2017-10-04 01:54] LABS: C-REACTIVE PROTEIN 0.53 mg/dl (0-0.29)
[2017-10-04] MEDS ORDERED: KETOROLAC TROMETHAMINE 30 MG/ML VIAL IV STA (01:54)
[2017-10-04] MEDS ORDERED: MoRPHine SULFATE 2 MG/ML CARP IV PRN (03:30)
[2017-10-04] MEDS: HEPARIN 25,000 UNIT/500ML D5W 500 ML IV PRN ×4 (04:06→23:10)
[2017-10-04 04:39] LABS: BASO % 0.4 %; BASO ABS # 0.05 K/uL (0-0.2); EOS % 2.1 %; HEMATOCRIT 42.6 % (42-52); IG% 0.3 %; LYMPH % 25.2 %; LYMPH ABS # 3.02 K/uL (1.2-3.4); MEAN CELL VOLUME 93.2 fL (80-100); MEAN CORPUSCULAR HEMOGLOBIN 31.9 pg (25-34); MEAN PLATELET VOLUME 11.5 fL (7.4-10.4); PLATELET COUNT 198 K/uL (130-400); RED BLOOD COUNT 4.57 M/uL (4.7-6.1); WHITE BLOOD COUNT 11.97 K/uL (4.8-10.8)
[2017-10-04 04:43] LABS: COMPLETE YES; MEAN CORPUSCULAR HGB CONC 34.3 g/dl (32-36)
[2017-10-04 04:48] LABS: PARTIAL THROMBOPLASTIN RATIO 1.1; PROTHROMBIN TIME (PATIENT) 10.7 SECONDS (9.0-12.0)
[2017-10-04] MEDS ORDERED: METHYLPREDNISOLONE IV 80 MG in SYRINGE 0 ML IV SCH (06:00)
[2017-10-04] MEDS: GABAPENTIN 300 MG CAP PO SCH ×3 (08:40→19:37)
[2017-10-04] MEDS: LOSARTAN POTASSIUM 50 MG TAB PO SCH (08:41)
[2017-10-04] MEDS: MELOXICAM 7.5 MG TAB PO SCH (08:41)
[2017-10-04 08:56] LABS: CHOLESTEROL/HDL RATIO 6.3
[2017-10-04] MEDS ORDERED: ENOXAPARIN 40 MG/0.4 ML SYR SC SCH (09:00)
[2017-10-04 10:25] LABS: PARTIAL THROMBOPLASTIN RATIO 1.5
[2017-10-04] MEDS ORDERED: NURSING VERBAL MED ORDER ONE (10:45)
[2017-10-04] MEDS ORDERED: HEPARIN IV BOLUS 6,000 UNIT in SYRINGE 0 ML IV SCH (11:30)
--- NOTE | 2017-10-04 11:40 | Family Medicine Progress Note ---
Progress Note Date of Service Oct 04, 2017. Subjective Pt evaluation today including: conversation w/ patient, physical exam, chart review, review of studies, conversation w/ dairy nutrition consultant, review of inpatient medication list Pain: neck pain PO Intake: good Voiding: no voiding problems Patient feeling better this morning Is without any chest pain since last night Still complaining of neck pain and tingling in the 4/5th digit bilaterally Also complaining of mild dizziness Constitutional: No fever, No chills, No sweats, No weakness Respiratory: No cough, No sputum, No shortness of breath Cardiovascular: No chest pain, No edema, No palpitations Abdomen: No pain, No nausea, No vomiting, No diarrhea Musculoskeletal: + joint pain, No calf pain Neurologic: + weakness, + numbness/tingling Skin: No rash, No itch Medications Current Inpatient Medications Medications (Trade) Dose Ordered Sig/Christal Route Start Time Stop Time Status Last Admin Dose Admin Acetaminophen (Tylenol Tab) 650 mg Q4H PRN PO 10/03/17 20:15 11/02/17 20:14 10/03/17 23:40 650 MG Al Hydrox/Mg Hydrox/Simethicone (Maalox Max Susp) 15 ml Q4H PRN PO 10/03/17 20:15 11/02/17 20:14 Magnesium Hydroxide (Milk Of Magnesia Susp) 30 ml Q12H PRN PO 10/03/17 20:15 11/02/17 20:14 Ondansetron HCl (Zofran Inj) 4 mg Q6H PRN IV 10/03/17 20:15 11/02/17 20:14 Nitroglycerin (Nitrostat Tab) 0.4 mg UD PRN SL 10/03/17 20:15 11/02/17 20:14 Polyethylene (Miralax Powder Packet) 17 gm DAILY PRN PO 10/03/17 20:15 11/02/17 20:14 Gabapentin (Neurontin Cap) 300 mg TID PO 10/03/17 21:00 11/02/17 20:59 10/04/17 08:40 300 MG Losartan Potassium (coZAAR TAB) 50 mg DAILY PO 10/04/17 09:00 11/03/17 08:59 10/04/17 08:41 50 MG Meloxicam (Mobic Tab) 15 mg DAILY PO 10/04/17 09:00 11/03/17 08:59 10/04/17 08:41 15 MG Gadobutrol (Gadavist) 10 mmol UD PRN IV 10/03/17 21:25 10/07/17 21:24 Morphine Sulfate (MoRPHine SULFATE INJ) 2 mg Q30M PRN IV 10/04/17 03:30 10/18/17 03:29 Heparin Sodium/ Dextrose 500 ml @ 35 mls/hr [id number] PRN IV 10/04/17 04:00 11/03/17 03:59 10/04/17 04:06 29 MLS/HR Miscellaneous Information (Nursing Heparin Iv Rate Change) 1 ea ONE ONCE N/A 10/04/17 10:45 10/04/17 10:46 UNV Heparin Sodium (Porcine) 6000 unit/Syringe 6 ml @ 10 mls/min TODAY@1130 IV 10/04/17 11:30 10/04/17 13:00 Objective Vital Signs Date Time Temp Pulse Resp B/P (MAP) Pulse Ox O2 Delivery O2 Flow Rate FiO2 10/04/17 11:08 36.7 53 18 142/89 (106) 95 Room Air 10/04/17 07:06 36.6 58 18 131/81 (98) 96 Room Air 10/04/17 04:34 36.6 52 18 155/81 (105) 95 Room Air 10/04/17 04:00 98 Room Air 10/04/17 00:00 98 Room Air 10/03/17 23:19 36.7 61 16 186/84 Room Air 10/03/17 22:40 36.7 61 16 186/84 (118) 98 Room Air 10/03/17 22:18 56 143/78 98 10/03/17 20:36 57 169/87 96 Room Air 10/03/17 20:03 149/115 10/03/17 20:00 60 15 95 10/03/17 19:31 141/108 10/03/17 19:30 58 15 96 10/03/17 19:27 57 169/89 96 Room Air 10/03/17 19:25 169/89 10/03/17 18:31 151/88 10/03/17 18:01 134/86 10/03/17 17:57 144/79 10/03/17 17:56 57 144/79 93 Room Air 10/03/17 17:21 78 17 96 10/03/17 17:20 61 10/03/17 17:18 62 21 162/86 95 Room Air 10/03/17 17:18 162/86 10/03/17 17:17 95 Room Air 10/03/17 17:17 95 Room Air 10/03/17 16:59 95 Room Air 10/03/17 16:56 36.5 63 22 185/85 95 Room Air Physical Exam General Appearance: WD/WN, no apparent distress Eyes: PERRL, + abnormal EOM (slow movement of the extraocular muscles bilaterally) ENT: hearing grossly normal, pharynx normal Neck: supple, trachea midline, + pertinent finding (pain along c5-c7 cervical spine, mild trapezius tenderness, negative spurlings test) Respiratory/Chest: lungs clear, no respiratory distress, no accessory muscle use Cardiovascular: regular rate, rhythm, no murmur Abdomen: normal bowel sounds, non tender, soft Extremities: no pedal edema, no calf tenderness, normal capillary refill, + pertinent finding (decreased sensation in the feet bilaterally, up to the ankles ) 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, alert, oriented x 3 Laboratory Results Results Past 24 Hours Test 10/03/17 17:15 10/03/17 17:22 10/03/17 17:24 10/04/17 01:59 Range/Units White Blood Count 11.82 4.8-10.8 K/uL Red Blood Count 4.75 4.7-6.1 M/uL Hemoglobin 15.4 14.0-18.0 g/dL Hematocrit 44.2 42-52 % Mean Corpuscular Volume 93.1 80-100 fL Mean Corpuscular Hemoglobin 32.4 25-34 pg Mean Corpuscular Hemoglobin Concent 34.8 32-36 g/dl Platelet Count 215 130-400 K/uL Mean Platelet Volume 11.6 7.4-10.4 fL Neutrophils (%) (Auto) 68.3 % Lymphocytes (%) (Auto) 21.2 % Monocytes (%) (Auto) 8.1 % Eosinophils (%) (Auto) 1.4 % Basophils (%) (Auto) 0.6 % Neutrophils # (Auto) 8.07 1.4-6.5 K/uL Lymphocytes # (Auto) 2.51 1.2-3.4 K/uL Monocytes # (Auto) 0.96 0.11-0.59 K/uL Eosinophils # (Auto) 0.16 0-0.5 K/uL Basophils # (Auto) 0.07 0-0.2 K/uL RDW Standard Deviation 45.3 36.4-46.3 fL RDW Coefficient of Variation 13.3 11.5-14.5 % Immature Granulocyte % (Auto) 0.4 % Immature Granulocyte # (Auto) 0.05 0.00-0.02 K/uL Prothrombin Time 10.3 9.0-12.0 SECONDS Prothromb Time International Ratio 1.0 0.9-1.1 Activated Partial Thromboplast Time 26.4 21.0-31.0 SECONDS Partial Thromboplastin Ratio 1.0 Sodium Level 139 136-145 mmol/L Potassium Level 3.9 3.5-5.1 mmol/L Chloride Level 105 98-107 mmol/L Carbon Dioxide Level 28 21-32 mmol/L Anion Gap 6.0 3-11 mmol/L Blood Urea Nitrogen 16 7-18 mg/dl Creatinine 1.16 0.60-1.40 mg/dl Est Creatinine Clear Calc Drug Dose 71.0 ml/min Estimated GFR () 75.6 Estimated GFR (Non- 65.3 BUN/Creatinine Ratio 13.6 10-20 Random Glucose 112 70-99 mg/dl Calcium Level 8.9 8.5-10.1 mg/dl Magnesium Level 2.2 1.8-2.4 mg/dl Total Bilirubin 0.3 0.2-1 mg/dl Direct Bilirubin < 0.1 0-0.2 mg/dl Aspartate Amino Transf (AST/SGOT) 17 15-37 U/L Alanine Aminotransferase (ALT/SGPT) 20 12-78 U/L Alkaline Phosphatase 100 45-117 U/L Total Creatine Kinase 53 39-308 U/L Creatine Kinase MB 0.5 0.5-3.6 ng/ml Creatine Kinase MB Ratio 0.9 0-3.0 Troponin I < 0.015 0.083 0-0.045 ng/ml C-Reactive Protein 0.53 0-0.29 mg/dl Total Protein 7.9 6.4-8.2 gm/dl Albumin 4.0 3.4-5.0 gm/dl Lipase 167 73-393 U/L Bedside D-Dimer 354 0-450 ng/mlFEU Erythrocyte Sedimentation Rate 6 0-14 mm/hr Test 10/04/17 04:26 10/04/17 08:05 10/04/17 08:45 10/04/17 10:01 Range/Units White Blood Count 11.97 4.8-10.8 K/uL Red Blood Count 4.57 4.7-6.1 M/uL Hemoglobin 14.6 14.0-18.0 g/dL Hematocrit 42.6 42-52 % Mean Corpuscular Volume 93.2 80-100 fL Mean Corpuscular Hemoglobin 31.9 25-34 pg Mean Corpuscular Hemoglobin Concent 34.3 32-36 g/dl Platelet Count 198 130-400 K/uL Mean Platelet Volume 11.5 7.4-10.4 fL Neutrophils (%) (Auto) 63.0 % Lymphocytes (%) (Auto) 25.2 % Monocytes (%) (Auto) 9.0 % Eosinophils (%) (Auto) 2.1 % Basophils (%) (Auto) 0.4 % Neutrophils # (Auto) 7.53 1.4-6.5 K/uL Lymphocytes # (Auto) 3.02 1.2-3.4 K/uL Monocytes # (Auto) 1.08 0.11-0.59 K/uL Eosinophils # (Auto) 0.25 0-0.5 K/uL Basophils # (Auto) 0.05 0-0.2 K/uL RDW Standard Deviation 45.4 36.4-46.3 fL RDW Coefficient of Variation 13.3 11.5-14.5 % Immature Granulocyte % (Auto) 0.3 % Immature Granulocyte # (Auto) 0.04 0.00-0.02 K/uL Prothrombin Time 10.7 9.0-12.0 SECONDS Prothromb Time International Ratio 1.0 0.9-1.1 Activated Partial Thromboplast Time 27.3 37.8 21.0-31.0 SECONDS Partial Thromboplastin Ratio 1.1 1.5 Troponin I 0.105 0-0.045 ng/ml Triglycerides Level 110 0-150 mg/dl Cholesterol Level 176 0-200 mg/dl HDL Cholesterol 28 mg/dl LDL Cholesterol, Calculated 126 mg/dl VLDL Cholesterol, Calculated 22 mg/dl Cholesterol/HDL Ratio 6.3 Bedside Glucose 106 70-99 mg/dl Test 10/04/17 11:13 Range/Units Assessment and Plan This is a 67 y/o M who presents with persistent chest pressure, weakness/ dizziness. Chest pain Initial troponin negative, repeat .083 and .105 EKG showed bradycardia but without any ectopy of st changes Stress echo AM- dobutamine stress ordered due to patient having weak ankles/ knees Heparin drip started by primary team Consult Cardiology- spoke to Dr. Ceja and he said he would decide if patient still needs stress echo Lipid panel showed total cholesterol 176 and ldl 126 ordered HbA1c Neck pain pain appears to be cervical in nature patient may need cervical XRAY or MRI Weakness/dizziness/intermittent blurry vision Concern for CVA Brain MRI negative Head CT negative Lipid panel with results as above Peripheral neuropathy takes gabapentin for peripheral neuropathy TID unknown cause will order B12, tsh, lyme, thiamine and HbA1c HTN Continue Cozaar DVT proph Lovenox Code Full Resident Physician Supervision Note: I was present with PGY2 Dr. Micah Spann during the history and exam. I discussed the case with the resident and agree with the findings and plan as documented in the note. Any exceptions or clarifications are listed here: stress echo canceled. Cardiac cath scheduled for tomorrow. Pt's chest pressure is 'better' but not fully resolved. Tele wnl. Main complaint is posterior neck/scalp headache/pain. Paresthesias of hands improved. All symptoms began Sunday when his 96yo mother . VSS no fever gen - anxious, perspiring intermittently neck - no JVD heart - RRR lungs - CTA b/l abd - soft, NT ext - no edema neuro - strength x 4 exts 5/5 musculo - neck - very tender with rotation over the paraspinals on right posteriorly; muscles quite stiff/tender to palpation troponin - minimal rise and fall today sed rate, b12, tsh, lymes, bmp, cbc all normal except minimal leukocytosis MRI brain, CTA neck, etc - all negative A/P: near constant chest pressure since Sunday of this week with normal EKGs and minor troponin rise paresthesias neck pain / posterior headache pain anxiety recent of mother spoke with Dr. Hidalgo - plan is for heart cath tomorrow; his clinical picture could be due to Takotsubo's vs ACS; heparin drip in meantime to be safe he had a cath in [place] 3 years ago - recalls one lesion, 30%; attempt to obtain that report asa 81mg until cath is done neck - likely muscular; could be DJD with radiculopathy causing hand paresthesias but this all started acutely on Sunday when chest symptoms began will give muscle relaxer x 1 and use heat consider CT or MRI of cervical spine if symptoms worsen/persist family updated Documented By: Elan Nelson MD Continued [facility] stay due to: multiple IV medications needed
[2017-10-04 12:43] LABS: ESTIMATED AVERAGE GLUCOSE 117 mg/dl; HA1C FLAG Normal (Normal)
[2017-10-04 13:04] LABS: LYME DISEASE AB IGG NEG (NEG); LYME DISEASE AB IGM NEG (NEG)
[2017-10-04] MEDS ORDERED: DIAZEPAM 5MG TAB PO ONE (16:15)
[2017-10-04 18:08] LABS: PARTIAL THROMBOPLASTIN RATIO 3.6
[2017-10-04] MEDS ORDERED: ASPIRIN 81 MG ECTAB PO STA (19:12)
[2017-10-04] MEDS: ACETAMINOPHEN 325 MG TAB PO PRN ×2 (19:24→23:48)
[2017-10-05] VITALS (13 sets, daily range): BP systolic 113–164; BP diastolic 71–93; PULSE 54–71; TEMP 36.3–36.9; O2SAT 93–99
--- NOTE | 2017-10-05 01:22 | CARDIOLOGY CONSULTATION ---
DATE OF CONSULTATION: 10/04/2017 REASON FOR CONSULTATION: Chest pain/NSTEMI. CONSULTATION REQUESTED BY: Dr. Nelson. HISTORY OF PRESENT ILLNESS: Mr. Roque is a very pleasant 67-year-old man with a history of hypertension, who presented with midsternal chest pressure yesterday, found to have elevated cardiac enzymes on presentation. Mr. Roque states that he had been in his usual state of health, although he does note that he had a recent stressful time as his mother recently 2 days ago at age 96. Over the last 2 days, has had intermittent chest pressure symptoms along with discomfort in the neck. Feels that initial symptoms were headache, then the neck pain and then chest pressure. Due to worsening chest pressure, presented to the ED last night. There, initial presenting EKG was unremarkable and initial cardiac troponin was negative; however, it subsequently became positive and peaked at 0.105 this morning. No changes in followup EKG. The patient reports only mild neck pain today. He did have an episode of bilateral upper extremity numbness/tingling and underwent evaluation for possible CVA including neuro imaging with CT scan of his head and a brain MRI which was unremarkable. Of note, the patient's cardiac history is remarkable for a prior event 4 years ago, he had a similar chest fullness. At that time, he presented to [facility] and was transferred to [place] where he underwent cardiac catheterization per Dr. Pelayo. Per the patient, results had only mild nonobstructive disease and no intervention was undertaken. PAST MEDICAL HISTORY: 1. Hypertension. 2. Mild nonobstructive coronary artery disease. 3. Osteoarthritis. 4. Neuropathy. HOME MEDICATIONS: Include gabapentin, losartan 50 mg daily and meloxicam. SOCIAL HISTORY: He is a remote smoker. He is , retired. 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 REVIEW OF SYSTEMS: Ten-point review of systems completed and otherwise negative unless listed in the HPI. FAMILY HISTORY: Noncontributory. PHYSICAL EXAMINATION: VITAL SIGNS: Temperature 36.5, pulse 62, blood pressure 126/78, satting 96% on room air. GENERAL: The patient appears comfortable, in no acute distress. HEENT: Sclerae are anicteric. Oropharynx is clear. Mucous membranes are moist. NECK: Supple with no lymphadenopathy. LUNGS: Clear to auscultation bilaterally. HEART: Regular rate and rhythm with no murmurs, rubs or gallops. ABDOMEN: Soft, nontender, nondistended, with positive bowel sounds. EXTREMITIES: Warm. He has intact distal pulses including 2+ radial pulse. NEUROLOGIC: Nonfocal. PSYCHIATRIC: He is alert, oriented and appropriate. DATA: Hemoglobin of 14.6, platelets of 188. Initial troponin negative, subsequent 0.083, peaked at 0.105 before trending down. Total cholesterol 176, triglycerides 110, HDL 28, LDL of 126. A1c was 5.7. Sodium 139, potassium 3.9, BUN 16, creatinine 1.6. Chest x-ray shows no acute cardiopulmonary process. EKG shows sinus rhythm with no significant ST abnormalities. Telemetry reviewed and showed no significant arrhythmia. IMPRESSION AND PLAN: 1. Cuy-ZP-hruomog elevation myocardial infarction. 2. Hypertension. 3. History of reported mild nonobstructive coronary artery disease. Mr. Roque is here with acute onset of chest pressure and was found to have elevated cardiac biomarkers concerning for acute coronary syndrome. With the patient's presentation, risk for adverse event is elevated and do feel that further risk stratification is warranted and would ideally proceed with cardiac catheterization. Discussed risks, benefits and alternatives of that procedure with the patient and his and they are willing to proceed. In the interim, would plan to continue on current heparin infusion, continue aspirin, continue statin and ARB. In the setting of the patient's recent loss of his mother, do feel that there is potential that elevation of cardiac biomarkers/chest pain could represent a stress-induced cardiomyopathy but will plan to rule out significant coronary artery disease first. Further recommendations pending findings of coronary angiography. Thank you for consultation.
[2017-10-05 02:10] LABS: PARTIAL THROMBOPLASTIN RATIO 2.5
[2017-10-05 07:31] LABS: HEMATOCRIT 42.2 % (42-52); MEAN CELL VOLUME 93.4 fL (80-100); MEAN CORPUSCULAR HEMOGLOBIN 32.5 pg (25-34); MEAN CORPUSCULAR HGB CONC 34.8 g/dl (32-36); MEAN PLATELET VOLUME 11.6 fL (7.4-10.4); PLATELET COUNT 177 K/uL (130-400); RED BLOOD COUNT 4.52 M/uL (4.7-6.1)
[2017-10-05 07:47] LABS: PARTIAL THROMBOPLASTIN RATIO 2.6
[2017-10-05] MEDS: LOSARTAN POTASSIUM 50 MG TAB PO SCH (08:28)
[2017-10-05] MEDS: MELOXICAM 7.5 MG TAB PO SCH (08:29)
[2017-10-05] MEDS: ASPIRIN 81 MG ECTAB PO SCH ×2 (08:29→08:37)
[2017-10-05] MEDS: GABAPENTIN 300 MG CAP PO SCH (08:29)
[2017-10-05] MEDS ORDERED: MIDAZOLAM HCL 1 MG/ML 2ML VIAL ONE (08:32)
[2017-10-05] MEDS ORDERED: FENTANYL CITRATE INJ 50 MCG/1 ML 2 ML VIAL ONE (08:32)
[2017-10-05] MEDS ORDERED: HEPARIN SOD (PORCINE) 1000 UNIT/ML 10 ML VIAL ONE (08:33)
[2017-10-05] MEDS ORDERED: NITROGLYCERIN/D5W 100MCG/ML 20ML SYR ONE (08:33)
[2017-10-05] MEDS ORDERED: NiCARDipine HCL INJ 2.5 MG/ML 10 ML AMP ONE (08:33)
--- NOTE | 2017-10-05 10:51 | Pre Sedation Assessment ---
Pre Sedation Assessment General Date of Sedation: Oct 05, 2017. Vital Signs Past 12 Hours Date Time Temp Pulse Resp B/P (MAP) Pulse Ox O2 Delivery O2 Flow Rate FiO2 10/05/17 10:45 Room Air 10/05/17 10:40 Room Air 10/05/17 10:35 51 16 161/92 (115) 97 Room Air 10/05/17 07:56 36.7 57 20 143/78 (99) 93 10/05/17 07:52 96 Room Air 10/05/17 04:48 36.6 68 18 121/79 (93) 95 Room Air 10/05/17 04:00 Room Air 10/04/17 23:55 36.7 58 16 127/75 (92) 94 Room Air 10/04/17 23:15 Room Air Review Cardiovascular: regular rate, rhythm, no edema Lungs: chest non-tender, lungs clear Pre-Sedation Airway Assessment Smoking Status: Former Smoker Hx of Sleep Apnea: No Hx of difficult intubation: No Short Thick Neck: No Thyro-mental Distance: > 3 Finger Breadths Oral Cavity: WNL Mallampati Classification: Class III ASA Classification: Class III NPO Status Date of Last Intake of Fluids: Oct 04, 2017 Time of Last Intake of Fluids: 2199 Date of Last Intake of Solids: Oct 04, 2017 Time of Last Intake of Solids: 2199 Notes The planned sedation has been discussed with the patient. Informed Consent was obtained. I have identified the patient, determined the appropriateness of sedation and have assessed the patient immediately prior to the procedure. All medicine(s) and interventions are by my order.
--- NOTE | 2017-10-05 10:51 | Post Sedation Assessment ---
Post Sedation Assessment General Date of Sedation Oct 05, 2017. Vital Signs: Vital Signs Past 12 Hours Date Time Temp Pulse Resp B/P (MAP) Pulse Ox O2 Delivery O2 Flow Rate FiO2 10/05/17 10:45 Room Air 10/05/17 10:40 Room Air 10/05/17 10:35 51 16 161/92 (115) 97 Room Air 10/05/17 07:56 36.7 57 20 143/78 (99) 93 10/05/17 07:52 96 Room Air 10/05/17 04:48 36.6 68 18 121/79 (93) 95 Room Air 10/05/17 04:00 Room Air 10/04/17 23:55 36.7 58 16 127/75 (92) 94 Room Air 10/04/17 23:15 Room Air Post Procedure Recovery Score Activity: (2) Moves 4 extremities * Respiration: (2) Deep breath/cough Circulation: (2) +/-20% PreAnes Value Consciousness: (2) Fully Awake Oxygen Saturation: (2) > 92% On Room Air Post Anesthesia Score: 10 Discharge Sedation Level of Care: Fast Track Phase II Post Sedation Plan On clinical assessment, the patient appears to have tolerated the sedation without complications. Patient is recovering as anticipated. Patient will continue to be monitored by nursing and may be discharged when sedation discharge criteria are met per below protocol. Upon Completions of procedure and additional 15 minutes continue every 5 minute vital signs and the P.A.R. score; then discharge to a Phase I or Fast Track to Phase II per the following guidelines: * Discharge Patient to appropriate Phase II area if PAR is 8 or greater or return to pre- procedure baseline. The post - procedure orders will be as directed. * If PAR score is less than 8 or not return to pre-procedure baseline then patient will follow Phase I monitoring till PAR is reached for Phase II. The Phase I may be done in procedure room or may call to secure a Phase I area. * If naloxone or flumazenil are used for reversal, hold in Phase I for an additional 60 -120 minutes before discharge to Phase II. Please call the Sedation Physician to re-evaluate and complete post-note for discharge to Phase II area. Do NOT discharge from procedure sedation or Phase 1 until post- sedation evaluation note is complete by procedure /sedation MD Sedation Discharge Instructions to be given to the patient at discharge to home.
--- NOTE | 2017-10-05 12:01 | Cardiac Catheterization ---
Procedure Note Procedure Date Oct 05, 2017. Pre-Procedure Diagnosis Non STEMI AUC Score 7 Post-Procedure Diagnosis Severe CAD, Normal Intracardiac Pressures Procedure(s) Performed Coronary Angiography, Left Heart Cath, IVUS Senior Writer Rocky Cad Design Engineer(s) Liyah Estimated Blood Loss 20 Medication(s) Fentanyl, Heparin, Nicardipine, Nitroglycerin, Versed, Lidocaine 1% Summary of Findings Indication: NSTEMI Access: 6Fr slender right radial artery; 6Fr right BELT POLISHER Catheters: tiger, pigtail, JL3.5; JL3.5 guide Findings: LM - Short, 20-30% distal prior to bifurcation LAD - Moderate caliber vessel, 20-30% hazy ostial/proximal disease; 50% mid segment disease; distal luminal irregularities. Circumflex - Co-dominant, large vessel, 90% mildly calcified ostial stenosis with some post stenosis ectasia RCA - Co-dominant, sluggish flow, 20-30% proximal disease, 50% distal disease; R -PDA luminal irregularities. LVEDP - 15 LVEF - 55%, 1+ MR IVUS - - Circumflex - confirmed 80-90% mildly calcified plaque extending to ostium - LAD - Diffuse atherosclerotic plaque from mid to proximal segment, mid segment with 60-70% disease; ostial LAD with calcified eccentric plaque (CSA 4.0 mm2), moderate plaque extending into short LM. Arterial Closure: TR Band; Mynx Summary: 1. Multivessel coronary artery disease - 90% ostial circumflex stenosis - LAD 60-70% proximal and mid segment disease with eccentric ostial disease extending back into left main (Ostial LAD CSA 4 mm2 on IVUS) - 50% distal RCA disease 2. Normal intracardiac filling pressure. Normal LV function. Recommendations: - Recommend tertiary center evaluation for CABG - Continue to monitor on heparin for 48 hrs - Continue ASA, statin Hemodynamics Rest Ao: 120/62/87 Final Ao: 150/65/97 LV: 146/15 Recommendations CABG Specimens None Radiation Exposure (mGy) 3744 Contrast (mls) 130 Visi Fluids (cc crystalloids) 155 Drains None Anesthesia Moderate Procedural Complication(s) None Disposition PCU ACC Data Cardiac Status Clinical evaluation leading to the procedure CAD Presntation: Non STEMI Anginal Classification: CCS IV Heart Failure: No, NYHA Class: CCS I Cardiogenic Shock w/in 24Hrs: No Cardiac Arrest w/in 24Hrs: No Imaging studies past 6 months: No Stress studies past 6 months: No Closure Device Percutaneous Entry Location: Radial Closure Device: Mynx, Radial Band Recommendations: CABG Intraprocedure Events Significant Dissection: No
[2017-10-05] MEDS ORDERED: SODIUM CHLORIDE 0.9% 1000ML 1,000 ML IV SCH (13:09)
[2017-10-05] MEDS ORDERED: ACETAMINOPHEN 325 MG TAB PO PRN (13:15)
--- NOTE | 2017-10-05 15:28 | Family Medicine Progress Note ---
Progress Note Date of Service Oct 05, 2017. Subjective Pt evaluation today including: conversation w/ patient Patient seen prior to cardiac cath in AM. He was feeling well, denied any chest discomfort or neck pain. Did not have any concerns about cath. Denied any new issues. Constitutional: No fever, No chills Eyes: No worsening of vision ENT: No hearing loss Respiratory: No cough, No sputum Cardiovascular: No chest pain Abdomen: No pain, No nausea All Other Systems: Reviewed and Negative Medications Current Inpatient Medications Medications (Trade) Dose Ordered Sig/Christal Route Start Time Stop Time Status Last Admin Dose Admin Al Hydrox/Mg Hydrox/Simethicone (Maalox Max Susp) 15 ml Q4H PRN PO 10/03/17 20:15 11/02/17 20:14 Magnesium Hydroxide (Milk Of Magnesia Susp) 30 ml Q12H PRN PO 10/03/17 20:15 11/02/17 20:14 Ondansetron HCl (Zofran Inj) 4 mg Q6H PRN IV 10/03/17 20:15 11/02/17 20:14 Nitroglycerin (Nitrostat Tab) 0.4 mg UD PRN SL 10/03/17 20:15 11/02/17 20:14 Polyethylene (Miralax Powder Packet) 17 gm DAILY PRN PO 10/03/17 20:15 11/02/17 20:14 Losartan Potassium (coZAAR TAB) 50 mg DAILY PO 10/04/17 09:00 11/03/17 08:59 10/05/17 08:28 50 MG Meloxicam (Mobic Tab) 15 mg DAILY PO 10/04/17 09:00 11/03/17 08:59 10/04/17 08:41 15 MG Gadobutrol (Gadavist) 10 mmol UD PRN IV 10/03/17 21:25 10/07/17 21:24 Morphine Sulfate (MoRPHine SULFATE INJ) 2 mg Q30M PRN IV 10/04/17 03:30 10/18/17 03:29 Heparin Sodium/ Dextrose 500 ml @ 32 mls/hr [id number] PRN IV 10/04/17 04:00 11/03/17 03:59 10/04/17 23:10 32 MLS/HR Gabapentin (Neurontin Cap) 300 mg HS PO 10/04/17 21:00 11/02/17 20:59 12/21/17 19:37 300 MG Aspirin (Ecotrin Tab) 81 mg QAM PO 10/05/17 09:00 11/04/17 08:59 10/05/17 08:37 81 MG Sodium Chloride 1,000 ml @ 100 mls/hr Q10H IV 10/05/17 13:09 10/05/17 20:38 10/05/17 13:26 100 MLS/HR Acetaminophen (Tylenol Tab) 650 mg Q4H PRN PO 10/05/17 13:15 11/04/17 13:14 10/05/17 14:52 650 MG Objective Vital Signs Date Time Temp Pulse Resp B/P (MAP) Pulse Ox O2 Delivery O2 Flow Rate FiO2 10/05/17 14:22 71 18 164/78 (106) 97 Room Air 10/05/17 13:08 58 18 142/85 (104) 96 Room Air 10/05/17 12:07 58 20 137/90 (106) 97 Room Air 10/05/17 12:00 Room Air 10/05/17 11:38 56 20 143/79 (100) 94 Room Air 10/05/17 11:22 62 20 136/85 (102) 95 Room Air 10/05/17 11:08 57 20 163/88 (113) 96 Room Air 10/05/17 11:05 36.3 54 20 162/93 (116) 96 Room Air 10/05/17 10:50 50 16 159/89 (112) 96 Room Air 10/05/17 10:45 Room Air 10/05/17 10:40 Room Air 10/05/17 10:35 51 16 161/92 (115) 97 Room Air 10/05/17 07:56 36.7 57 20 143/78 (99) 93 10/05/17 07:52 96 Room Air 10/05/17 04:48 36.6 68 18 121/79 (93) 95 Room Air 10/05/17 04:00 Room Air 10/04/17 23:55 36.7 58 16 127/75 (92) 94 Room Air 10/04/17 23:15 Room Air 10/04/17 20:00 Room Air 10/04/17 19:03 36.5 62 20 126/78 (94) 96 Room Air 10/04/17 16:00 Room Air Physical Exam General Appearance: WD/WN, no apparent distress Eyes: normal inspection, PERRL ENT: hearing grossly normal Neck: supple, no JVD Respiratory/Chest: lungs clear, normal breath sounds, no respiratory distress Cardiovascular: regular rate, rhythm, no murmur Abdomen: normal bowel sounds, non tender, soft Extremities: normal range of motion, non-tender, no pedal edema Neurologic/Psychiatric: supervisor riveting II-XII nml as tested, no motor/sensory deficits, alert, normal mood/affect, oriented x 3 Skin: no rash Laboratory Results Last 24 Hours Test 10/04/17 17:23 10/05/17 01:26 10/05/17 07:10 Activated Partial Thromboplast Time 94.5 SECONDS 65.5 SECONDS 67.8 SECONDS Partial Thromboplastin Ratio 3.6 2.5 2.6 Troponin I 0.048 ng/ml White Blood Count 8.60 K/uL Red Blood Count 4.52 M/uL Hemoglobin 14.7 g/dL Hematocrit 42.2 % Mean Corpuscular Volume 93.4 fL Mean Corpuscular Hemoglobin 32.5 pg Mean Corpuscular Hemoglobin Concent 34.8 g/dl RDW Standard Deviation 46.0 fL RDW Coefficient of Variation 13.4 % Platelet Count 177 K/uL Mean Platelet Volume 11.6 fL CATH RESULTS: 1. Multivessel coronary artery disease - 90% ostial circumflex stenosis - LAD 60-70% proximal and mid segment disease with eccentric ostial disease extending back into left main (Ostial LAD CSA 4 mm2 on IVUS) - 50% distal RCA disease 2. Normal intracardiac filling pressure. Normal LV function. Recommendations: - Recommend tertiary center evaluation for CABG - Continue to monitor on heparin for 48 hrs - Continue ASA, statin Assessment and Plan 67 yo M initially presented w/chest pain, found to have multivessel coronary artery disease Multivessel CAD - Per Dr. Hidalgo, will continue heparin drip x 48 hours then DC home - Will have follow up in 1-2 weeks w/Dr Hidalgo, and then will arrange outpatient evaluation with a tertiary center - Continue daily aspirin and statin Neck pain - Improved/resolved - Continue to monitor, if worsens will get Xray or MRI Intermittent blurry vision - Continue to monitor Peripheral neuropathy, unclear etiology - Lyme negative, A1c normal - Continue gabapentin Hypertension - Continue Cozaar VTE - Lovenox Code status: Full Dispo: Potential DC tomorrow VTE: Heparin drip Resident Physician Supervision Note: I was present with PGY3 Dr. Melissa Dickerson during the history and exam. I discussed the case with the resident and agree with the findings and plan as documented in the note. Any exceptions or clarifications are listed here: patient is not on lovenox for VTE proph - he is on heparin drip. Saw the patient post-cath - feeling well; no dyspnea, no chest pressure, no paresthesias of hands, no neck pain. Tele normal overnight with periods of bradycardia during sleep only. VSS no fever gen - comfortable, not anxious today neck - no JVD heart - RRR lungs - CTA b/l abd - soft, NT ext - no edema skin - no hematoma over right wrist or right groin A/P: 1. very mild NSTEMI 2. severe, multi-vessel CAD on heart cath today 3. hyperlipidemia 4. HTN 5. recent of mother with significant anxiety earlier this stay 6. recent cervicalgia - improved/resolved 7. recent paresthesias - improved/resolved asa, high-intensity statin, nitro prn, ARB beta clarence not possible due to bradycardia heparin drip overnight, d/c in AM patient will have f/u with Dr. Hidalgo shortly after d/c referral to tertiary care thereafter for intervention of #2 d/c in AM Documented By: Elan Nelson MD Resident Tracking Resident Involvement: Resident Care Provided Care Provided: Adult Hospital Medicine
[2017-10-05] MEDS ORDERED: PERFLUTREN LIPID MICROSPHERE (DEFINITY) IV ONE (15:45)
[2017-10-05] MEDS: HEPARIN 25,000 UNIT/500ML D5W 500 ML IV PRN (15:55)
--- NOTE | 2017-10-05 17:05 | ECHOCARDIOGRAM REPORT ---
*NOTICE TO RECEIVING REPUBLICAN AGENCY This information is strictly Confidential and protected under [place] law. [place] law prohibits you from making any further disclosure of this information unless further disclosure is expressly permitted by the written consent of the person to whom it pertains or is authorized by law. A general authorization for the release of medical or other information is not sufficient for this purpose. Hospital accepts no responsibility if the information is made available to any other person, INCLUDING THE PATIENT. Interpretation Summary * Name: ROSE HARO Study Date: 10/05/2017 03:19 PM BP: 164/78 mmHg * Patient Location: .2T\S\S239\S\1 HR: 64 * : 1950 (M/d/yyyy) Gender: Male Height: 65 in * Age: 67 yrs Ethnicity: CA Weight: 225 lb * Ordering Physician: Elan Nelson * Referring Physician: Self, Referred * Performed By: Danielle Conley RDCS * * Reason For Study: Acute Myocardial Infarction * BSA: 2.1 m2 * -- Conclusions -- * 1. Normal LV size. Mild concentric LVH. * 2. Normal LV systolic function. LVEF 60-65%. No regional wall motion abnormalities. * 3. Normal RV size and function. * 4. No significant valvular pathology. * 5. Normal estimated PA and RA pressures. * 6. No prior studies for comparison. Procedure Details * A complete two-dimensional transthoracic echocardiogram was performed (2D, M-mode, Doppler and color flow Doppler). * A contrast injection of Definity was performed to improve assessment of LV function. * Contrast was injected into an intravenous site in the left arm. * One vial of Definity ultrasound contrast was diluted in normal saline to a total volume of 10 ml. A total of '2' ml of solution was administered during imaging. * Lot # [id number] of Definity utilized for procedure. * Expiration date . * The attending nurse who injected the contrast agent was Ryanne Cervantes RN. Left Ventricle * The left ventricle is normal in size. * There is mild concentric left ventricular hypertrophy. * Ejection Fraction = 60-65%. * No regional wall motion abnormalities noted. Right Ventricle * The right ventricle is grossly normal size. * The right ventricular systolic function is normal as assessed by tricuspid annular plane systolic excursion (TAPSE) (normal >1.5 cm). Atria * The left atrial size is normal. * Right atrial size is normal. * No ASD detected; PFO is not assessed. Mitral Valve * The mitral valve is grossly normal. * There is no mitral valve stenosis. * There is trace mitral regurgitation. Tricuspid Valve * The tricuspid valve is not well visualized, but is grossly normal. * There is no tricuspid stenosis. * Significant tricuspid regurgitation is absent. Aortic Valve * The aortic valve is not well visualized. * The aortic valve is trileaflet. * No hemodynamically significant valvular aortic stenosis. * There is no significant aortic regurgitation. Pulmonic Valve * The pulmonary valve is inadequately visualized, but the Doppler data is adequate for interpretation. * Pulmonic stenosis is absent. * There is no significant pulmonary regurgitation. Great Vessels * The aortic root and proximal ascending aorta are normal sized. Pericardium/Pleural * There is no pericardial effusion. Great Vessels * Normal inferior vena cava size and collapsability with sniff indicates a normal right atrial pressure of 3 mmHg MMode 2D Measurements and Calculations IVSd 1.3 cm IVSs 1.4 cm LVIDd 4.7 cm LVIDs 3.0 cm LVPWd 1.2 cm LVPWs 1.4 cm IVS/LVPW 1.1 FS 37.4 % EDV(Teich) 104.1 ml ESV(Teich) 34.0 ml EF(Teich) 67.4 % EDV(cubed) 106.1 ml ESV(cubed) 26.0 ml EF(cubed) 75.5 % % IVS thick 6.8 % % LVPW thick 20.0 % LV mass(C)d 226.7 grams LV mass(C)dI 109.0 grams/m\S\2 LV mass(C)s 140.0 grams LV mass(C)sI 67.3 grams/m\S\2 SV(Teich) 70.1 ml SI(Teich) 33.7 ml/m\S\2 SV(cubed) 80.1 ml SI(cubed) 38.5 ml/m\S\2 Ao root diam 3.2 cm Ao root area 8.2 cm\S\2 LA dimension 4.4 cm LA/Ao 1.4 LVAd ap4 25.2 cm\S\2 LVLd ap4 7.8 cm EDV(MOD-sp4) 69.4 ml EDV(sp4-el) 69.1 ml LVAs ap4 12.7 cm\S\2 LVLs ap4 6.2 cm ESV(MOD-sp4) 22.5 ml ESV(sp4-el) 22.3 ml EF(MOD-sp4) 67.6 % EF(sp4-el) 67.7 % LVAd ap2 25.3 cm\S\2 LVLd ap2 7.8 cm EDV(MOD-sp2) 70.4 ml EDV(sp2-el) 70.0 ml LVAs ap2 14.9 cm\S\2 LVLs ap2 7.2 cm ESV(MOD-sp2) 27.5 ml ESV(sp2-el) 26.2 ml EF(MOD-sp2) 60.9 % EF(sp2-el) 62.5 % LVLd %diff 0.19 % EDV(MOD-bp) 69.7 ml LVLs %diff 14.4 % ESV(MOD-bp) 25.9 ml EF(MOD-bp) 62.9 % SV(MOD-sp4) 46.9 ml SI(MOD-sp4) 22.5 ml/m\S\2 SV(MOD-sp2) 42.9 ml SI(MOD-sp2) 20.6 ml/m\S\2 SV(MOD-bp) 43.8 ml SI(MOD-bp) 21.1 ml/m\S\2 SV(sp4-el) 46.8 ml SI(sp4-el) 22.5 ml/m\S\2 SV(sp2-el) 43.7 ml SI(sp2-el) 21.0 ml/m\S\2 Doppler Measurements and Calculations MV E max bushra 91.2 cm/sec MV A max bushra 82.0 cm/sec MV E/A 1.1 MV dec time 0.27 sec Ao V2 max 137.9 cm/sec Ao max PG 7.6 mmHg Ao max PG (full) 2.8 mmHg LV V1 max PG 4.8 mmHg LV V1 max 109.6 cm/sec PA V2 max 154.1 cm/sec PA max PG 9.5 mmHg
[2017-10-05] MEDS ORDERED: NTRSLP4 SL (17:11)
[2017-10-05] MEDS ORDERED: ATOR-26 PO (17:11)
[2017-10-05] MEDS ORDERED: ASPEC81 PO (17:11)
--- NOTE | 2017-10-05 17:11 | Cardiology Follow-Up ---
Subjective Subjective Date of Service: Oct 05, 2017. Pt evaluation today including: conversation w/ patient, conversation w/ family , physical exam, chart review, lab review, review of studies, conversation w/ home sales consultant, review of inpatient medication list Additional Details: No recurrent chest pain. No dyspnea. No other new complaints. 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 Tele reviewed -- sinus bradycardia, no other events. Problem List Medical Problems: (1) Chest pain Status: Acute (2) Neck pain Status: Acute Review of Systems Constitutional: No fever, No chills Eyes: No worsening of vision ENT: No hearing loss Respiratory: No cough, No sputum Cardiac: No chest pain Abdomen: No pain, No nausea Musculoskeletal: No calf pain Skin: No rash, No itch Objective Vital Signs Last Vital Signs Documentation Date Time Temp Pulse Resp B/P (MAP) Pulse Ox O2 Delivery O2 Flow Rate FiO2 10/05/17 16:17 36.6 65 18 148/80 (102) 95 10/05/17 16:00 Room Air Physical Exam: General Appearance: no apparent distress ENT: hearing grossly normal Neck: supple, no JVD Respiratory/Chest: lungs clear, normal breath sounds, no respiratory distress Cardiovascular: regular rate, rhythm, no murmur Abdomen: normal bowel sounds, non tender, soft Extremities: normal range of motion, non-tender, no pedal edema Neurologic/Psychiatric: alert, normal mood/affect, oriented x 3 Skin: no rash Assessment and Plan 1. NSTEMI 2. Multivessel CAD including severe 90% ostial circumflex, and moderate to severe ostial LAD disease 3. Hypertension Discussed results of cardiac catheterization with patient and his family. He has severe ostial circumflex disease as well as moderate to severe ostial LAD disease extending into the left main on IVUS. LV function preserved on echo. No significant valvular pathology. At present feel patient is stable from a cardiac standpoint but best served long -term by potential bypass surgery Will plan to monitor on telemetry overnight - if remains stable OK for discharge first thing in AM. Can d/c heparin Home ASA, ARB and prn sl nitroglycerin and statin. Hold beta-clarence in setting of sinus bradycardia. Will arrange CT Surgery evaluation at [facility] in [place]. Continued [facility] stay due to: multiple IV medications needed Medications: Current Inpatient Medications Medications (Trade) Dose Ordered Sig/Christal Route Start Time Stop Time Status Last Admin Dose Admin Al Hydrox/Mg Hydrox/Simethicone (Maalox Max Susp) 15 ml Q4H PRN PO 10/03/17 20:15 11/02/17 20:14 Magnesium Hydroxide (Milk Of Magnesia Susp) 30 ml Q12H PRN PO 10/03/17 20:15 11/02/17 20:14 Ondansetron HCl (Zofran Inj) 4 mg Q6H PRN IV 10/03/17 20:15 11/02/17 20:14 Nitroglycerin (Nitrostat Tab) 0.4 mg UD PRN SL 10/03/17 20:15 11/02/17 20:14 Polyethylene (Miralax Powder Packet) 17 gm DAILY PRN PO 10/03/17 20:15 11/02/17 20:14 Losartan Potassium (coZAAR TAB) 50 mg DAILY PO 10/04/17 09:00 11/03/17 08:59 10/05/17 08:28 50 MG Meloxicam (Mobic Tab) 15 mg DAILY PO 10/04/17 09:00 11/03/17 08:59 10/04/17 08:41 15 MG Gadobutrol (Gadavist) 10 mmol UD PRN IV 10/03/17 21:25 10/07/17 21:24 Morphine Sulfate (MoRPHine SULFATE INJ) 2 mg Q30M PRN IV 10/04/17 03:30 10/18/17 03:29 Heparin Sodium/ Dextrose 500 ml @ 32 mls/hr [id number] PRN IV 10/04/17 04:00 11/03/17 03:59 10/05/17 15:55 32 MLS/HR Gabapentin (Neurontin Cap) 300 mg HS PO 10/04/17 21:00 11/02/17 20:59 10/04/17 19:37 300 MG Aspirin (Ecotrin Tab) 81 mg QAM PO 10/05/17 09:00 11/04/17 08:59 10/05/17 08:37 81 MG Sodium Chloride 1,000 ml @ 100 mls/hr Q10H IV 10/05/17 13:09 10/05/17 20:38 10/05/17 13:26 100 MLS/HR Acetaminophen (Tylenol Tab) 650 mg Q4H PRN PO 10/05/17 13:15 11/04/17 13:14 10/05/17 14:52 650 MG Lab Results: 10/05/17 07:10 Test 10/04/17 17:23 10/05/17 07:10 Troponin I 0.048 ng/ml (0-0.045) Red Blood Count 4.52 M/uL (4.7-6.1) Mean Corpuscular Volume 93.4 fL (80-100) Mean Corpuscular Hemoglobin 32.5 pg (25-34) Mean Corpuscular Hemoglobin Concent 34.8 g/dl (32-36) RDW Standard Deviation 46.0 fL (36.4-46.3) RDW Coefficient of Variation 13.4 % (11.5-14.5) Mean Platelet Volume 11.6 fL (7.4-10.4) Activated Partial Thromboplast Time 67.8 SECONDS (21.0-31.0) Partial Thromboplastin Ratio 2.6
--- NOTE | 2017-10-05 17:13 | Discharge Instructions ---
Discharge Instructions Date of Service Oct 05, 2017. Admission Reason for Admission: Chest Tightness Or Pressure, Weakness Discharge Discharge Diagnosis / Problem: Coronary artery disease Discharge Goals Goal(s): Increase independence Activity Recommendations Activity Limitations: per Instructions/Follow-up section . Instructions / Follow-Up Instructions / Follow-Up The new medications prescribed are: Aspirin 81mg daily - this is a blood thinner, take it everyday. Do not take too much Ibuprofen since you are on this medication. Atorvastatin 80mg daily - this is for your cholesterol, take it everyday as well. Nitroglycerin - take this NEEDED, for chest pain If you develop further chest pain or shortness of breath, please call 911. You will likely need to go to a tertiary care hospital (in [facility], or [place]) to have the issues fixed. Home Care: * Take your medications exactly as directed. Don't skip doses. * Remember that recovery after a heart attack takes time. Plan to rest for at lease 4-8 weeks while you recover. Then return to normal activity when your doctor says it's okay. * Ask your doctor about joining a heart rehabilitation program. * Tell your doctor if you are feeling depressed. Feelings of sadness are common after a heart attack, but it is important that you speak to someone if you are feeling overwhelmed by these feelings. * If you are having chest pain, call 911 for an ambulance. Do NOT drive yourself to the hospital. * Ask your family members to learn CPR. * Learn to take your own blood pressure and pulse. Keep a record of your results. Ask your doctor when you should seek emergency medical attention. He or she will tell you which blood pressure reading is dangerous. Lifestyle Changes: * Maintain a healthy weight. Get help to lose any extra pounds. * Cut back on salt. * Limit canned, dried, packaged, and fast foods. * Don't add salt to your food. * Season foods with herbs instead of salt when you cook. * Break the smoking habit. Enroll in a stop-smoking program to improve your chances of success. * Limit fatty foods. * Ask your doctor about having your lipid levels checked regularly. * Build up your activity according to your doctor's recommendation. * Ask your doctor when it's okay to resume sexual activity. * Tell your doctor about any erectile dysfunction (ED) medication you are taking. Some ED medications are not safe if you take certain heart medications. * Try to manage stress. Follow Up: It is important for you to keep your follow up appointments with your medical provider. Current Hospital Diet Patient's current hospital diet: AHA Diet (Heart Healthy) Discharge Diet Recommended Diet: AHA Diet (Heart Healthy) Procedures Procedures Performed: Cardiac catheterization 10/05/17 Pending Studies Studies pending at discharge: no Laboratory Results Hemoglobin A1c Test 10/04/17 11:13 Range/Units Estimated Average Glucose 117 mg/dl Hemoglobin A1c 5.7 H 4.5-5.6 % Lipid Panel Test 10/04/17 08:05 Range/Units Triglycerides Level 110 0-150 mg/dl Cholesterol Level 176 0-200 mg/dl HDL Cholesterol 28 mg/dl Cholesterol/HDL Ratio 6.3 LDL Cholesterol, Calculated 126 mg/dl Medical Emergencies . Who to Call and When: Medical Emergencies: If at any time you feel your situation is an emergency, please call 911 immediately. Call 911 immediately or go to your nearest Emergency Room if you experience any of the following: Warning Signs and Symptoms of a Heart Attack * Chest pain that is not relieved by medication * Shortness of breath . Non-Emergent Contact Non-Emergency issues call your: Primary Care Provider, [facility] . . "Provider Documentation" section prepared by Melissa Dickerson. . AMI Core Measures Reason no ASA as I/P: Treatment provided - N/A Reason no ASA at D/C: Treatment provided - N/A Reason no statin as I/P: Treatment provided - N/A Reason no statin at D/C: Treatment provided - N/A VTE Core Measure Inpt VTE Proph given/why not?: Other Anticoagulation (Heparin)
[2017-10-05] MEDS ORDERED: ATORVASTATIN 40 MG TAB PO ONE (19:00)
[2017-10-06 03:35] VITALS: BP 133/78; PULSE 72; TEMP 36.8; O2SAT 94
[2017-10-06 05:59] LABS: BASO % 0.4 %; BASO ABS # 0.05 K/uL (0-0.2); COMPLETE YES; EOS % 1.5 %; HEMATOCRIT 42.8 % (42-52); IG% 0.3 %; LYMPH % 16.9 %; LYMPH ABS # 2.02 K/uL (1.2-3.4); MEAN CELL VOLUME 93.9 fL (80-100); MEAN CORPUSCULAR HEMOGLOBIN 32.7 pg (25-34); MEAN CORPUSCULAR HGB CONC 34.8 g/dl (32-36); MEAN PLATELET VOLUME 11.5 fL (7.4-10.4); MONO % 8.5 %; NEUT % 72.4 %; PLATELET COUNT 189 K/uL (130-400); RED BLOOD COUNT 4.56 M/uL (4.7-6.1); WHITE BLOOD COUNT 11.96 K/uL (4.8-10.8)
[2017-10-06 06:27] LABS: BUN/CREATININE RATIO 17.6 (10-20); CALCIUM 8.6 mg/dl (8.5-10.1); CREATININE 1.2 mg/dl (0.60-1.40); POTASSIUM 4.1 mmol/L (3.5-5.1)
[2017-10-06 06:29] LABS: ALB/GLOB RATIO 0.9 (0.9-2)
[2017-10-06 07:36] VITALS: BP 133/78; PULSE 72; TEMP 36.8; O2SAT 94
[2017-10-06 07:51] VITALS: BP 136/78; PULSE 63; TEMP 36.9; O2SAT 95
--- NOTE | 2017-10-06 07:51 | Discharge Summary ---
Discharge Summary Date of Service Oct 06, 2017. Discharge Summary Admission Date: Oct 03, 2017 at 20:24 Discharge Date: Oct 06, 2017 Discharge Disposition: Home Principal Diagnosis: NSTEMI Problems/Secondary Diagnoses: HTN hyperlipidemia paresthesias/neuropathy obesity pre-DM with hemoglobin a1c 5.7% pulmonary nodules - follow-up imaging advised Procedures: ECHOCARDIOGRAM * 1. Normal LV size. Mild concentric LVH. * 2. Normal LV systolic function. LVEF 60-65%. No regional wall motion abnormalities. * 3. Normal RV size and function. * 4. No significant valvular pathology. * 5. Normal estimated PA and RA pressures. * 6. No prior studies for comparison. CARDIAC CATHETERIZATION 1. Multivessel coronary artery disease - 90% ostial circumflex stenosis - LAD 60-70% proximal and mid segment disease with eccentric ostial disease extending back into left main (Ostial LAD CSA 4 mm2 on IVUS) - 50% distal RCA disease 2. Normal intracardiac filling pressure. Normal LV function. BRAIN COMBO CLINICAL HISTORY: 67 years-old Male presenting with vision changes, dizziness, weakness. TECHNIQUE: Multisequence, multiplanar MR imaging of the brain was performed before and after the administration of intravenous contrast. IV contrast: 10 mm of Gadavist. COMPARISON: CT head performed earlier the same day. FINDINGS: Image quality is degraded by motion artifact though this does not significantly limit diagnostic sensitivity. Ventricles and sulci normal in size. Periventricular and subcortical white matter T2/FLAIR hyperintensity, nonspecific but likely indicative of chronic small vessel ischemic change. No mass effect or midline shift. No restricted diffusion to suggest acute ischemia. No hemorrhage. No extra-axial fluid collection. T2 skull base flow voids preserved. No abnormal parenchymal enhancement. Bone marrow signal intensity within the calvarium within normal limits. IMPRESSION: 1. No acute intracranial pathology. No abnormal enhancement. NECK ANGIO WITH CONTRAST CLINICAL HISTORY: 67 years-old Male presenting with neck pain. TECHNIQUE: Multidetector CT angiography of the neck was performed after the administration of intravenous contrast. 3-D volumetric and/or maximum intensity projection (MIP) images were subsequently reconstructed for review. IV contrast: 116 mL of Optiray 320. A dose lowering technique was used consistent with the principles of ALARA (as low as reasonably achievable). Stenosis measurements were based on NASCET-like criteria. COMPARISON: None. CT DOSE (mGy.cm): The estimated cumulative dose is 2556.70 mGy.cm. FINDINGS: Support Clerk topogram: Unremarkable. Three-vessel aortic arch with patent origins of the branch vessels. Bilateral common and internal carotid arteries patent. Limited atherosclerosis of the carotid bulbs without significant luminal narrowing. Codominant vertebral arteries with patent origins and courses. No evidence of dissection, focal vessel occlusion, or significant stenosis. Limited intracranial evaluation within normal limits. Degenerative changes of the spine. Lung apices clear. IMPRESSION: 1. No evidence of dissection, focal vessel occlusion, or significant stenosis of the cervical arteries. 2. Degenerative changes of the spine. CHEST COMBO ANGIO DISSECTION CLINICAL HISTORY: 67 years-old Male presenting with chest and neck pain. TECHNIQUE: Multidetector CT angiography of the chest was performed before and after the administration of intravenous contrast. 3-D volumetric and/or maximum intensity projection (MIP) images were subsequently reconstructed for review. IV contrast: 116 mL of Optiray 320. A dose lowering technique was used consistent with the principles of ALARA (as low as reasonably achievable). Stenosis measurements were based on NASCET-like criteria. COMPARISON: None. CT DOSE (mGy.cm): The estimated cumulative dose is 2556.70 inclusive of the CTA neck. FINDINGS: Support Clerk topogram: Unremarkable. Vasculature: The study is adequate for assessment of the aorta. Initial current noncontrast imaging demonstrates no evidence of intramural hematoma or postsurgical change of the aorta. Postcontrast imaging demonstrates a normal caliber aorta with trace atherosclerosis. No evidence of acute aortic injury. Allowing for the phase of contrast, no filling defect within the pulmonary arteries to suggest embolus. Main pulmonary artery is not enlarged. No flattening of the interventricular septum. No intracardiac intracardiac filling defect. No reflux of contrast into the hepatic veins. On soft tissue windows, normal thyroid and thoracic inlet. No axillary, supraclavicular, hilar, or mediastinal lymphadenopathy. Mild coronary artery calcification. Normal heart size. No pericardial or pleural effusion. Upper abdomen normal. On lung windows, minimal dependent changes likely atelectasis. Solid peripheral 4 mm nodule at the posterior basal right lower lobe (series 6 image 245). Fissural and subpleural nodules in the right lung, the largest measuring 5 mm (see series 6 image 170). Ovoid solid peripheral 7 mm nodule at the right apex (series 6 image 69) multiple solid subpleural nodules in the left upper lobe, the largest measuring 6 mm (series 6 image 141). Several fissural punctate nodules noted in the left lung. Large airways patent. On bone windows, mild degenerative changes of the thoracic spine. Exaggerated thoracic kyphosis without a focal compression deformity. Osteopenia. IMPRESSION: 1. No acute aortic injury or evidence of pulmonary embolus. 2. No acute intrathoracic pathology. 3. Multiple bilateral solid pulmonary nodules the largest measuring 7 mm. Follow-up per [place]etta Society 2017 recommendations below. 4. Osteopenia. Please refer to below summary of Fleischner Society 2017 recommendations for follow-up of incidental CT nodules (H Ligia et al. Guidelines for management of incidental pulmonary nodules detected on CT images: From the Fleischner Society 2017. Radiology 2017; 284: 228-243.) SOLID NODULES Single nodule; size < 6 mm * Low risk patients: No routine follow-up * High risk patients: Optional CT at 12 months Single nodule; size 6-8 mm * Low risk patients: CT at 6-12 months, then consider CT at 18-24 months * High risk patients: CT at 6-12 months, then at 18-24 months Single nodule; size > 8 mm * Either low or high risk patients: Considered CT at 3 months, PET/CT, or tissue sampling Multiple nodules; size < 6 mm * Low risk patients: No routine follow up * High risk patients: Optional CT at 12 months Multiple nodules; size 6-8 mm * Low risk patients: CT at 3-6 months, then consider CT at 18-24 months * High risk patients: CT at 3-6 months, then at 18-24 months Multiple nodules; size > 8 mm * Low risk patients: CT at 3-6 months, then consider at 18-24 months * High risk patients: CT at 3-6 months, then at 18-24 months Note: These guidelines apply to incidental nodules. These guidelines do not apply to patients younger than 35 years, immunocompromised patients, or patients with cancer. * Low risk patients: Minimal or absent history of smoking and/or other known risk factors * High risk patients: History of smoking, exposure to other carcinogens, emphysema, fibrosis, upper lobe location, family history of lung cancer, etc. * If a nodule up to 8 mm is partly solid or is ground glass, further follow-up is required after 24 months to exclude possible slow growing adenocarcinoma. SUBSOLID NODULES Single ground-glass nodule * Nodule size < 6 mm: No routine follow-up * Nodule size > or = 6 mm: CT at 6-12 months to confirm persistence, then CT every 2 years until 5 years Single part-solid nodule * Nodule size < 6 mm: No routine follow-up * Nodules size > or = 6 mm: CT at 3-6 months to confirm persistence. If unchanged and solid component remains < 6 mm, annual CT should be performed for 5 years Multiple nodules * Nodule size < 6 mm: CT at 3-6 months. If stable, consider CT at 2 and 4 years. * Nodules size > or = 6 mm: CT at 3-6 months. Subsequent management based on the most suspicious nodule(s) Medication Reconciliation New Medications: Atorvastatin (Lipitor) 80 Mg Tab 1 TAB PO DAILY for 30 Days, #30 TAB Aspirin (Aspirin EC Low Dose) 81 Mg Ectab 81 MG PO QAM for 30 Days, #30 TAB Nitroglycerin (Nitrostat) 0.4 Mg/1 Tab Subl 0.4 MG SL UD PRN for Chest Pain for 15 Days, #15 TAB Continued Medications: Acetaminophen (Tylenol) 500 Mg Tab 1000 MG PO Q6 PRN for Pain, TAB Gabapentin (Neurontin) 300 Mg Cap 300 MG PO TID, CAP Losartan Potassium (Cozaar) 50 Mg Tab 50 MG PO DAILY, TAB Discharge Exam The patient was seen and examined at bedside. No acute overnight events overnight. Telemetry showed sinus rhythm in the 60s overnight. Patient is resting comfortably in bed. Denies having any pain. Eating and urinating well. Two family members present in the room. Plan of care was described to the patient and all questions were answered. Review of Systems: Constitutional: No fever, No chills Eyes: No eye pain ENT: No hearing loss Respiratory: No cough, No sputum, No shortness of breath, No dyspnea on exertion Cardiovascular: No chest pain Abdomen: No pain, No nausea, No vomiting, No diarrhea Musculoskeletal: No joint pain Genitourinary - Female: No dysuria Genitourinary - Male: No dysuria Integumentary: No rash Physical Exam: General Appearance: WD/WN, no apparent distress, + obese Eyes: PERRL, EOMI Neck: supple Respiratory/Chest: chest non-tender, lungs clear, normal breath sounds, no respiratory distress, no accessory muscle use Cardiovascular: regular rate, rhythm, no edema, no gallop, no JVD, no murmur , normal peripheral pulses Abdomen / GI: normal bowel sounds, non tender, soft, no organomegaly, no pulsatile mass Extremities: normal inspection, no calf tenderness, no pedal edema Neurologic/Psychiatric: log driver II-XII nml as tested, no motor/sensory deficits , alert, normal mood/affect, normal reflexes, oriented x 3 Skin: normal color Lymphatic: no adenopathy Hospital Course 67 M initially presented w/chest pain, found to have a mild NSTEMI ([place] at 0.105) which was treated with a 48hours Heparin Drip and admission to telemetry. Notable Lab Work Revealed a negative Lyme Serology and a HBA1C was 5.7. Echocardiogram showed Normal LV size, mild concentric LVH, normal LV systolic function and LVEF 60-65% without regional wall motion abnormalities or significant valvular pathology. Cardiac cath revealed 90% ostial circumflex, and moderate to severe ostial LAD disease. Our special programs director recommends CABG at a tertiary care center. A referral to CT Surgery at [facility] in [place] will be put in by Dr. Hidalgo of [facility]. Patient was discharged on ASA, Lipitor 80mg daily and Losartan. Beta clarence was held due to low heart rate. Home Neurontin and Tylenol were restarted on discharge. The patient was also given a prescription for 0.4mg SL Nitroglycerin PRN for chest pain. INCIDENTAL FINDING ON CT: multiple pulmonary nodules between 4mm and 7mm (see above report) Recommend repeat CT Scan of the Chest in 3-6 months. Resident Physician Supervision Note: I was present with PGY2 Dr. Harjeet Escalante during the discharge history and exam. I discussed the case with the resident and agree with the findings and plan as documented in the discharge summary. Any exceptions or clarifications are listed here: none. 67yo male with history of neuropathy and HTN who presented with numerous complaints including 2 days of chest pressure, paresthesias of both hands, headache, neck pain, and simply feeling unwell. The patient's mother the week of admission and all symptoms started shortly after her passing. The patient underwent a cardiac work-up including serial troponins, telemetry, etc. Troponin was mildly positive. He was felt to have had a very mild NSTEMI and thus was treated with heparin for 48 hours. Cardiac cath was performed by Dr. Tj Hidalgo showing severe, multi-vessel CAD. The patient will be referred for consideration of CABG or at least complex stenting. Asa 81mg and high-dose statin were initiated. The patient's neck pain and b/l hand paresthesias were worked up and no specific etiology was found. It is possible that some of the headache/neck pain was due to muscle tension from stress in the setting of his mother's . Multiple labs were drawn for the paresthesias including b12, TSH, lyme's, sed rate, etc -- all were normal. Vitamin B1 level was pending at discharge. MRI brain did not show any lesion or stroke. Fortunately the hand symptoms and neck pain/headache resolved prior to discharge. Discharge exam - gen - nad heart - esther, s1, s2, 1/6 FANNY LSB lungs - CTA b/l abd - soft, NT ext - right wrist w/o hematoma; right groin w/o hematoma; pulses both feet 2+ He was asked to stop his mobic in light of his CAD. He was also asked to not perform strenuous activities until he is seen in cardiology clinic after discharge. Documented By: Elan Nelson MD Total Time Spent: Greater than 30 minutes (34 min) This includes examination of the patient, discharge planning, medication reconciliation, and communication with other providers. Discharge Instructions Please refer to the electronic Patient Visit Report (Discharge Instructions) for additional information. Additional Copies To Florentin Sultana D.O.; Dean Hidalgo MD Resident Involvement: Resident Care Provided Care Provided: [facility]
[2017-10-06] MEDS ORDERED: ATORVASTATIN 40 MG TAB PO SCH (09:00)
== END 2017-10-06 08:10 | disposition home or self-care (01) | DRG 282 ==
LOC: C.EDB 16:56 → C.MED 20:24 → ENRESERV 20:49 → C.2T 10-05 11:08
PROVIDERS: ADMIT Internal Medicine; ATTEND Internal Medicine
PROC: B211YZZ Fluoroscopy of Multiple Coronary Arteries using Other Contrast (ICD-10-PCS; principal; 2017-10-05 06:53)
PROC: B241ZZ3 Ultrasonography of Multiple Coronary Arteries, Intravascular (ICD-10-PCS; principal; 2017-10-05 06:53)
PROC: 4A023N7 Measurement of Cardiac Sampling and Pressure, Left Heart, Percutaneous Approach (ICD-10-PCS; principal; 2017-10-05 06:53)
DX: I21.4 Non-ST elevation (NSTEMI) myocardial infarction (principal); I25.10 Atherosclerotic heart disease of native coronary artery without angina pectoris; M54.2 Cervicalgia; H53.8 Other visual disturbances; I25.2 Old myocardial infarction; E78.5 Hyperlipidemia, unspecified; I11.9 Hypertensive heart disease without heart failure; R20.2 Paresthesia of skin; G62.9 Polyneuropathy, unspecified; R73.03 Prediabetes; E66.9 Obesity, unspecified; Z51.81 Encounter for therapeutic drug level monitoring; Z79.899 Other long term (current) drug therapy; Z68.36 Body mass index [BMI] 36.0-36.9, adult; Z87.891 Personal history of nicotine dependence

== ENCOUNTER 2017-10-17 16:45 | Inpatient (IN) | payer OTHER ==
[~2017-10-17] VITALS: Ht 172.7 cm; Wt 102.9 kg
[~2017-10-17 16:45] MED LIST: ASPEC81 PO; ATOR-26 PO; NTRSLP4 SL
[2017-10-17] MEDS ORDERED: ACET-1256 PO (17:40)
[2017-10-17] MEDS ORDERED: LOSA50TA6 PO (17:40)
[2017-10-17] MEDS ORDERED: GABA-113 PO (17:40)
[2017-10-17 18:25] LABS: BASO % 0.5 %; BASO ABS # 0.08 K/uL (0-0.2); EOS % 0.8 %; EOS ABS # 0.14 K/uL (0-0.5); HEMATOCRIT 43.4 % (42-52); IG# 0.08 K/uL (0.00-0.02); LYMPH ABS # 2.63 K/uL (1.2-3.4); MEAN CELL VOLUME 94.1 fL (80-100); MEAN CORPUSCULAR HEMOGLOBIN 32.5 pg (25-34); MEAN CORPUSCULAR HGB CONC 34.6 g/dl (32-36); MEAN PLATELET VOLUME 10.9 fL (7.4-10.4); MONO % 7.7 %; MONO ABS # 1.36 K/uL (0.11-0.59); NEUT % 75.5 %; NEUT ABS # 13.26 K/uL (1.4-6.5); PLATELET COUNT 233 K/uL (130-400); RED CELL DISTRIBUTION WIDTH CV 13.5 % (11.5-14.5); RED CELL DISTRIBUTION WIDTH SD 46.3 fL (36.4-46.3); WHITE BLOOD COUNT 17.55 K/uL (4.8-10.8)
[2017-10-17] MEDS ORDERED: ATOR-26 PO (18:34)
[2017-10-17] MEDS ORDERED: ASPEC81 PO (18:34)
[2017-10-17] MEDS ORDERED: NTRGSL/4 UT (18:34)
[2017-10-17 18:42] LABS: CALCIUM 9.6 mg/dl (8.5-10.1); CREATININE 1.32 mg/dl (0.60-1.40); POTASSIUM 3.8 mmol/L (3.5-5.1)
--- NOTE | 2017-10-17 18:55 | DIAGNOSTIC IMAGING REPORT ---
L ELBOW MIN 3 VIEWS ROUTINE CLINICAL HISTORY: 67 years-old Male presenting with LEFT, BURSITIS/CELLULITIS. TECHNIQUE: Frontal, oblique, lateral views of the left elbow were obtained. COMPARISON: None. FINDINGS: No joint effusion. Enthesophyte at the insertion of the Achilles tendon. Elbow joint congruent. No acute fracture or malalignment. No significant degenerative change of the elbow joint. IMPRESSION: No acute osseous injury of the left elbow. Electronically signed by: Iker Cantu M.D. 10/17/2017 6:54 PM Dictated Date/Time: 10/17/2017 6:53 PM
--- NOTE | 2017-10-17 19:02 | EMERGENCY ROOM VISIT NOTE ---
ED Visit Note First contact with patient: 17:52 I did evaluate and examine this patient myself. I did guide management for the patient. I agree with the APC's assessment as discussed. Please see the APC's dictation for further details. I did independently review the x-rays and blood work. The patient was treated with IV antibiotics.
[2017-10-17] MEDS ORDERED: VANCOMYCIN INJ 2,500 MG in SODIUM CHLORIDE 0.9% 500ML 500 ML IV STA (19:06)
[2017-10-17] MEDS ORDERED: CEFTRIAXONE SOD INJ 1 GM ADDVIAL IV STA (19:06)
--- NOTE | 2017-10-17 20:22 | DIAGNOSTIC IMAGING REPORT ---
L VENOUS DOPPLER UPR EXT UNIL CLINICAL HISTORY: 67 years-old Male presenting with LEFT ARM PAIN, REDNESS AND SWELLING. TECHNIQUE: Real-time grayscale and color and spectral Doppler ultrasound imaging of the veins of the left upper extremity was performed. Compression and augmentation were also utilized. COMPARISON: None. FINDINGS: Left: Internal jugular vein: Patent. Subclavian vein: Patent. Axillary vein: Patent. Basilic vein: Patent. Brachial vein: Patent. Cephalic vein: Patent. Radial vein: Patent. Ulnar vein: Patent. Other: None. IMPRESSION: No evidence of deep venous thrombosis. Electronically signed by: Iker Cantu M.D. 10/17/2017 8:21 PM Dictated Date/Time: 10/17/2017 8:20 PM
--- NOTE | 2017-10-17 20:59 | EMERGENCY ROOM VISIT NOTE ---
History First contact with patient: 17:52 Chief Complaint: SWELLING TO EXTREMITY Stated Complaint: SWOLLEN ELBOW, NOT FELLING WELL History of Present Illness Patient is a [id number] 67-year-old white male who presents emergency department for admission of left elbow pain, redness and swelling times one day. Patient was recently hospitalized at our facility from 10/03 -10/06 for a non-STEMI. He underwent a cardiac catheterization at that time (right groin and right radial access), which showed multivessel disease, and he was referred to a tertiary care center for cardiovascular surgery evaluation. He unfortunately had a in the family and could not go directly there for evaluation, he has an appointment scheduled at [facility] on October 30. The patient had noted painless swelling over the tip of the left elbow for about a month. He states that it was "mushy"but not painful. He had never had symptoms similar to that previously, denies any trauma or unusual activity prior to the onset of the swelling. In the last 24 hours however, the elbow has become reddened, hot, and more swollen and tender. They have not documented a fever. He tried taking Tylenol without relief. He had a standing appointment with his PCP for follow-up from his hospitalization, and was referred to the emergency department for evaluation. He denies any prior history of skin infections or abscesses. He did have an IV site and they did perform blood draws from the left arm. He presently rates his discomfort a 5/ 10. Review of Systems Review of systems as per HPI. All other systems reviewed were negative. 10 systems reviewed. Past Medical/Surgical History Medical Problems: (1) CAD (coronary artery disease) (2) Chest pain (3) Chest tightness or pressure (4) Heart attack (5) Hyperlipidemia, Unspecified (6) Hypertension (7) Kidney stones (8) Neck pain (9) Prediabetes (10) Weakness Electronic medical records are reviewed and summarized as above/below. See Problem List. Social History Smoking Status: Never Smoker Marital Status: Housing Status: lives with significant other Occupation Status: retired Current/Historical Medications Scheduled Aspirin (Aspirin EC Low Dose), 81 MG PO QAM Atorvastatin (Lipitor), 80 MG PO DAILY Gabapentin (Neurontin), 300 MG PO HS Losartan Potassium (Cozaar), 50 MG PO DAILY Scheduled PRN Acetaminophen (Tylenol), 1,000 MG PO Q6H PRN for Pain Nitroglycerin (Nitrostat), 0.4 MG UT UD PRN for Chest Pain Physical Exam Vital Signs Date Time Temp Pulse Resp B/P (MAP) Pulse Ox O2 Delivery O2 Flow Rate FiO2 10/17/17 21:25 82 15 137/78 98 Room Air 10/17/17 19:30 20 162/98 100 Room Air 10/17/17 16:49 36.7 77 17 131/84 98 Room Air Physical Exam CONSTITUTIONAL: Patient is a well-appearing 67-year-old white male who is awake and alert and in no acute distress. Vital signs are stable and he is afebrile. CARDIOVASCULAR: Regular rate and rhythm. Peripheral pulses easily palpable. RESPIRATORY: Breath sounds equal and clear to auscultation. MUSCULOSKELETAL: Examination of the left arm show marked erythema and swelling over the olecranon, with marked tenderness and bogginess of the olecranon bursa. The area is hot to the touch, with surrounding erythema in the dorsal aspect of the arm, extending into the triceps region, and into the upper part of the forearm. Elbow range of motion is full. Left upper extremity is neurovascularly intact. Patient has a small scabbed over wound on the forearm, otherwise no other skin wounds or injuries noted. No lymphangitic streaking is present. No axillary lymphadenopathy appreciated. INTEGUMENTARY: As above, otherwise no other lesions or rashes, normal skin turgor. LYMPH: No lymphadenopathy. Medical Decision & Procedures ER Provider Diagnostic Interpretation: L ELBOW MIN 3 VIEWS ROUTINE CLINICAL HISTORY: 67 years-old Male presenting with LEFT, BURSITIS/CELLULITIS. TECHNIQUE: Frontal, oblique, lateral views of the left elbow were obtained. COMPARISON: None. FINDINGS: No joint effusion. Enthesophyte at the insertion of the Achilles tendon. Elbow joint congruent. No acute fracture or malalignment. No significant degenerative change of the elbow joint. IMPRESSION: No acute osseous injury of the left elbow. L VENOUS DOPPLER UPR EXT UNIL CLINICAL HISTORY: 67 years-old Male presenting with LEFT ARM PAIN, REDNESS AND SWELLING. TECHNIQUE: Real-time grayscale and color and spectral Doppler ultrasound imaging of the veins of the left upper extremity was performed. Compression and augmentation were also utilized. COMPARISON: None. FINDINGS: Left: Internal jugular vein: Patent. Subclavian vein: Patent. Axillary vein: Patent. Basilic vein: Patent. Brachial vein: Patent. Cephalic vein: Patent. Radial vein: Patent. Ulnar vein: Patent. Other: None. IMPRESSION: No evidence of deep venous thrombosis. Laboratory Results 10/17/17 18:10 Red Blood Count 4.61, Mean Corpuscular Volume 94.1, Mean Corpuscular Hemoglobin 32.5, Mean Corpuscular Hemoglobin Concent 34.6, Mean Platelet Volume 10.9, Neutrophils (%) (Auto) 75.5, Lymphocytes (%) (Auto) 15.0, Monocytes (%) (Auto) 7.7, Eosinophils (%) (Auto) 0.8, Basophils (%) (Auto) 0.5, Neutrophils # (Auto) 13.26, Lymphocytes # (Auto) 2.63, Monocytes # (Auto) 1.36, Eosinophils # (Auto) 0.14, Basophils # (Auto) 0.08 10/17/17 18:10 Test 10/17/17 18:10 10/17/17 19:05 White Blood Count 17.55 K/uL (4.8-10.8) Red Blood Count 4.61 M/uL (4.7-6.1) Hemoglobin 15.0 g/dL (14.0-18.0) Hematocrit 43.4 % (42-52) Mean Corpuscular Volume 94.1 fL (80-100) Mean Corpuscular Hemoglobin 32.5 pg (25-34) Mean Corpuscular Hemoglobin Concent 34.6 g/dl (32-36) Platelet Count 233 K/uL (130-400) Mean Platelet Volume 10.9 fL (7.4-10.4) Neutrophils (%) (Auto) 75.5 % Lymphocytes (%) (Auto) 15.0 % Monocytes (%) (Auto) 7.7 % Eosinophils (%) (Auto) 0.8 % Basophils (%) (Auto) 0.5 % Neutrophils # (Auto) 13.26 K/uL (1.4-6.5) Lymphocytes # (Auto) 2.63 K/uL (1.2-3.4) Monocytes # (Auto) 1.36 K/uL (0.11-0.59) Eosinophils # (Auto) 0.14 K/uL (0-0.5) Basophils # (Auto) 0.08 K/uL (0-0.2) RDW Standard Deviation 46.3 fL (36.4-46.3) RDW Coefficient of Variation 13.5 % (11.5-14.5) Immature Granulocyte % (Auto) 0.5 % Immature Granulocyte # (Auto) 0.08 K/uL (0.00-0.02) Erythrocyte Sedimentation Rate 23 mm/hr (0-14) Anion Gap 3.0 mmol/L (3-11) Est Creatinine Clear Calc Drug Dose 64.0 ml/min Estimated GFR () 64.7 Estimated GFR (Non- 55.8 BUN/Creatinine Ratio 12.9 (10-20) Calcium Level 9.6 mg/dl (8.5-10.1) C-Reactive Protein 9.30 mg/dl (0-0.29) Bedside Lactic Acid Venous 0.81 mmol/L (0.90-1.70) Medications Administered Medications (Trade) Dose Ordered Sig/Christal Route Start Time Stop Time Status Last Admin Dose Admin Ceftriaxone Sodium (Rocephin Inj) 1 gm NOW STAT IV 10/17/17 19:06 10/17/17 19:08 DC 10/17/17 19:29 1 GM Vancomycin HCl 2500 mg/Sodium Chloride 550 ml @ 200 mls/hr ONE STAT IV 10/17/17 19:06 10/17/17 21:50 DC 10/17/17 20:19 200 MLS/HR Morphine Sulfate (MoRPHine SULFATE INJ) 6 mg NOW STAT IV 10/17/17 22:02 10/17/17 22:03 DC 10/17/17 22:14 6 MG Ondansetron HCl (Zofran Inj) 4 mg NOW STAT IV 10/17/17 22:02 10/17/17 22:03 DC 10/17/17 22:13 4 MG ED Course The patient was seen and assessed as above. His old records were reviewed, including his recent hospitalization. He presents to the emergency department with a 1 month history of what sounds like olecranon bursitis, now with signs and symptoms of infection. Patient history and presentation were reviewed with attending physician who also independently evaluated the patient and agreed with plan of care. IV lock was initiated. Laboratory studies were collected including CBC with differential, sedimentation rate, CRP, BMP, [id number] lactic acid and blood cultures 2. X-rays of the left elbow and ultrasound of the left upper extremity were obtained. After laboratory studies were collected patient was given ceftriaxone 1 g and vancomycin 2500 mg IV. Vancomycin dosing was confirmed with the pharmacist. X-rays of the elbow did not demonstrate any acute fracture, no joint effusion was noted. Ultrasound of the left upper extremity was negative for DVT. Laboratory studies noted a white count of 17,500 with left shift and bandemia. H&H is normal. Platelet count is 233,000, sedimentation rate and CRP are elevated at 23 and 9.3 respectively. Electrolytes are normal. Lactic acid is not elevated. All laboratory and diagnostic imaging studies were reviewed with attending physician. Patient was reviewed with the [facility] Hospitalist Service for admission. I did also consult with [facility], and reviewed the patient with Dr Samuels. He asked that the patient be made NPO for possible surgical intervention 10/18/2017. While awaiting evaluation by the hospitalist, he did request something for pain and was given morphine 6 mg and Zofran 4 mg IV.. Medical Decision Differential diagnoses entertained included inflammatory versus infectious olecranon bursitis, septic joint, cellulitis, acute gouty arthropathy, DVT, compartment syndrome, among others. Medication Reconcilliation Current Medication List: was personally reviewed by [place] Blood Pressure Screening Patient's blood pressure: Elevated blood pressure Blood pressure disposition: Elevated BP felt to be situational Impression Primary Impression: Septic olecranon bursitis of left elbow Additional Impression: Left arm cellulitis Departure Information Dispostion Being Evaluated By Hospitalist Referrals Florentin Sultana D.O. (PCP) Patient Instructions My [facility] Health Problem Qualifiers
[2017-10-17] MEDS ORDERED: ONDANSETRON INJ 2 MG/ML 2 ML VIAL IV STA (22:02)
[2017-10-17] MEDS ORDERED: MoRPHine SULFATE 10 MG/ML CARP/VIAL IV STA (22:02)
[2017-10-17] MEDS ORDERED: ALUMINUM/MAGNESIUM/SIMETH (MAALOX MAX) 30 ML UDC PO PRN (22:15)
[2017-10-17] MEDS ORDERED: MAGNESIUM HYDROXIDE SUSP 30 ML UDC PO PRN (22:15)
[2017-10-17] MEDS ORDERED: HEPARIN SOD 5000 UNIT/0.5 ML CARP SQ SCH (22:15)
[2017-10-17] MEDS ORDERED: ONDANSETRON INJ 2 MG/ML 2 ML VIAL IV PRN (22:15)
[2017-10-17] MEDS ORDERED: ZOLPIDEM TARTRATE 5 MG TAB PO PRN (22:15)
[2017-10-17] MEDS ORDERED: ACETAMINOPHEN 325 MG TAB PO PRN (22:15)
[2017-10-17] MEDS ORDERED: POLYETHYLENE (MIRALAX) 17 GM PACK PO PRN (22:15)
--- NOTE | 2017-10-17 23:00 | History and Physical ---
History & Physical Date & Time of Service: Oct 17, 2017 at 22:31 Chief Complaint: Swollen Elbow, Not Felling Well Primary Care Physician: Florentin Sultana D.O. History of Present Illness Source: patient 67 y/o M CAD - recent NSTEMI, HTN, HPL. Developed some swelling of his L elbow 3-4 weeks prior. The area has become erythematous and tender over the past 2 days. He describes feeling generally ill since that time. He could not confirm fevers or rigors. Past Medical/Surgical History 1) CAD - NSTEMI 09/30 - cath revealed 90% R circ disease and moderate to severe LAD disease. He was referred to [facility] to pursue elective CABG. He has an appt scheduled for the . 2) HTN 3) HPL 4) Obese Family History Noncontributory to current case Social History Smoking Status: Never Smoker Marital Status: Occupational Status: retired Allergies Coded Allergies: No Known Allergies (Unverified , 10/04/17) Home Medications Scheduled Aspirin (Aspirin EC Low Dose), 81 MG PO QAM Atorvastatin (Lipitor), 80 MG PO DAILY Gabapentin (Neurontin), 300 MG PO HS Losartan Potassium (Cozaar), 50 MG PO DAILY Scheduled PRN Acetaminophen (Tylenol), 1,000 MG PO Q6H PRN for Pain Nitroglycerin (Nitrostat), 0.4 MG UT UD PRN for Chest Pain Review of Systems Constitutional: No fever, No chills, No sweats Eyes: No worsening of vision ENT: No hearing loss, No nasal symptoms Respiratory: No cough, No sputum, No wheezing Cardiovascular: No chest pain, No orthopnea, No PND Abdomen: No pain, No nausea, No vomiting Musculoskeletal: + joint pain (Pain at L elbow) Genitourinary - Male: No hematuria, No dysuria Neurologic: No memory loss, No paralysis, No weakness Psychiatric: No depression symptoms Endocrine: No fatigue Hematologic / Lymphatic: No abnormal bleeding/bruising Integumentary: + problem reported (Cellulitis over L elbow) Allergic / Immunologic: No environmental allergies Physical Exam Vital Signs Date Time Temp Pulse Resp B/P (MAP) Pulse Ox O2 Delivery O2 Flow Rate FiO2 10/17/17 21:25 82 15 137/78 98 Room Air 10/17/17 19:30 20 162/98 100 Room Air 10/17/17 16:49 36.7 77 17 131/84 98 Room Air General Appearance: WD/WN Head: normocephalic Eyes: normal inspection ENT: normal ENT inspection, pharynx normal Neck: supple, no JVD Respiratory/Chest: chest non-tender, lungs clear, normal breath sounds Cardiovascular: regular rate, rhythm, no edema, no gallop Abdomen/GI: normal bowel sounds, non tender, soft Back: normal inspection Extremities/Musculoskelatal: + pertinent finding (There is erythema and tenderness dirctly over the L elbow with mild cellulitis extending to the arm and forearm - full ROM is maintained without significant pain on movement) Neurologic/Psych: 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 II-XII nml as tested, no motor/sensory deficits, alert, normal mood/affect, oriented x 3 Skin: + pertinent finding (There is erythema and tenderness dirctly over the L elbow with mild cellulitis extending to the arm and forearm) Diagnostics Laboratory Results Results Past 24 Hours Test 10/17/17 18:10 10/17/17 19:05 Range/Units White Blood Count 17.55 4.8-10.8 K/uL Red Blood Count 4.61 4.7-6.1 M/uL Hemoglobin 15.0 14.0-18.0 g/dL Hematocrit 43.4 42-52 % Mean Corpuscular Volume 94.1 80-100 fL Mean Corpuscular Hemoglobin 32.5 25-34 pg Mean Corpuscular Hemoglobin Concent 34.6 32-36 g/dl Platelet Count 233 130-400 K/uL Mean Platelet Volume 10.9 7.4-10.4 fL Neutrophils (%) (Auto) 75.5 % Lymphocytes (%) (Auto) 15.0 % Monocytes (%) (Auto) 7.7 % Eosinophils (%) (Auto) 0.8 % Basophils (%) (Auto) 0.5 % Neutrophils # (Auto) 13.26 1.4-6.5 K/uL Lymphocytes # (Auto) 2.63 1.2-3.4 K/uL Monocytes # (Auto) 1.36 0.11-0.59 K/uL Eosinophils # (Auto) 0.14 0-0.5 K/uL Basophils # (Auto) 0.08 0-0.2 K/uL RDW Standard Deviation 46.3 36.4-46.3 fL RDW Coefficient of Variation 13.5 11.5-14.5 % Immature Granulocyte % (Auto) 0.5 % Immature Granulocyte # (Auto) 0.08 0.00-0.02 K/uL Erythrocyte Sedimentation Rate 23 0-14 mm/hr Sodium Level 134 136-145 mmol/L Potassium Level 3.8 3.5-5.1 mmol/L Chloride Level 102 98-107 mmol/L Carbon Dioxide Level 29 21-32 mmol/L Anion Gap 3.0 3-11 mmol/L Blood Urea Nitrogen 17 7-18 mg/dl Creatinine 1.32 0.60-1.40 mg/dl Est Creatinine Clear Calc Drug Dose 64.0 ml/min Estimated GFR () 64.7 Estimated GFR (Non- 55.8 BUN/Creatinine Ratio 12.9 10-20 Random Glucose 97 70-99 mg/dl Calcium Level 9.6 8.5-10.1 mg/dl C-Reactive Protein 9.30 0-0.29 mg/dl Bedside Lactic Acid Venous 0.81 0.90-1.70 mmol/L Microbiology Results 10/17/17 Blood Culture, Received Pending 10/17/17 Blood Culture, Received Pending Diagnostic Radiology XR of elbow and US of LUE do not support joint involvement Impression Assessment and Plan 67 y/o M CAD - recent NSTEMI, HTN, HPL. Developed some swelling of his L elbow 3-4 weeks prior. The area has become erythematous and tender over the past 2 days. He describes feeling generally ill since that time. He could not confirm fevers or rigors. 1) Cellulitis L elbow - questionable bursitis - placed on Vanc and Ceftriaxone initially - imaging and exam do not support joint involvement presently. Ortho can then be consulted as needed if there is no short-term improvement. 2) CAD - no active CP - scheduled for f/u at [facility] 10/26 - instructed to pursue elective CABG 3) HTN - cont Losartan 4) HPL - cont Lipitor Full code - Heparin prophylaxis Total time for this admit including review of labs, meds, imaging - discussion with pt and ER attending - 33 min Level of Care Med/Surg Resuscitation Status FULL RESUSCITATION VTE Prophylaxis VTE Risk Assessment Done? Y/N: Yes Risk Level: Low Given or contraindicated: Unfractionated heparin SQ
[2017-10-18] VITALS (8 sets, daily range): BP systolic 109–162; BP diastolic 66–84; PULSE 77–95; TEMP 37–37.5; O2SAT 94–98; Ht 172.7 cm; Wt 102.9 kg
[2017-10-18] MEDS: D5NSS + 20MEQ KCL 1,000 ML IV SCH ×2 (01:20→09:06)
[2017-10-18] MEDS ORDERED: VANCOMYCIN CONSULT ACTIVE PRN (03:00)
[2017-10-18] MEDS ORDERED: HEPARIN SOD 5000 UNIT/0.5 ML CARP SQ ONE (03:00)
[2017-10-18] MEDS: TRAMADOL HCL 50 MG TAB PO PRN ×2 (03:57→09:49)
[2017-10-18 08:43] LABS: HEMATOCRIT 40.2 % (42-52); HEMOGLOBIN 13.7 g/dL (14.0-18.0); MEAN CELL VOLUME 94.4 fL (80-100); MEAN CORPUSCULAR HEMOGLOBIN 32.2 pg (25-34); MEAN CORPUSCULAR HGB CONC 34.1 g/dl (32-36); MEAN PLATELET VOLUME 10.7 fL (7.4-10.4); PLATELET COUNT 214 K/uL (130-400); RED CELL DISTRIBUTION WIDTH CV 13.5 % (11.5-14.5); RED CELL DISTRIBUTION WIDTH SD 46.6 fL (36.4-46.3); WHITE BLOOD COUNT 14.99 K/uL (4.8-10.8)
--- NOTE | 2017-10-18 08:55 | Pharmacy Progress Note ---
Pharmacy Abx Initial Consult Date of Service Oct 18, 2017. Pharmacy Dosing Scope Date of Consult: 10/17/17 Consultation requested by: Dr. Nelson Pharmacy is consulted to initiate Vancomycin IV dosing therapy, order appropriate labs and adjust drug dose/frequency. Subjective The patient is a 67 year old male admitted on Oct 17, 2017 at 22:18. Objective Height (Feet): 5 Height (Inches): 8.00 Weight (Kilograms): 102.900 Vital Signs (Past 12Hrs) Vital Signs Past 12 Hours Date Time Temp Pulse Resp B/P (MAP) Pulse Ox O2 Delivery O2 Flow Rate FiO2 10/18/17 07:48 37.2 85 16 133/66 (88) 95 Room Air 10/18/17 07:10 Room Air 10/18/17 00:10 37.0 82 18 162/78 (106) 98 Room Air 10/18/17 00:00 Nasal Cannula 10/18/17 00:00 159/83 Room Air 10/17/17 23:18 72 18 130/89 99 10/17/17 21:25 82 15 137/78 98 Room Air Lab Results (24Hrs) Laboratory Tests (24 Hours) Test 10/17/17 18:10 10/18/17 08:27 C-Reactive Protein 9.30 mg/dl (0-0.29) H Erythrocyte Sedimentation Rate 23 mm/hr (0-14) H White Blood Count 17.55 K/uL (4.8-10.8) H 14.99 K/uL (4.8-10.8) H Red Blood Count 4.61 M/uL (4.7-6.1) L Hemoglobin 15.0 g/dL (14.0-18.0) Hematocrit 43.4 % (42-52) Mean Corpuscular Volume 94.1 fL (80-100) Mean Corpuscular Hemoglobin 32.5 pg (25-34) Mean Corpuscular Hemoglobin Concent 34.6 g/dl (32-36) Platelet Count 233 K/uL (130-400) Mean Platelet Volume 10.9 fL (7.4-10.4) H Neutrophils (%) (Auto) 75.5 % Lymphocytes (%) (Auto) 15.0 % Monocytes (%) (Auto) 7.7 % Eosinophils (%) (Auto) 0.8 % Basophils (%) (Auto) 0.5 % Neutrophils # (Auto) 13.26 K/uL (1.4-6.5) H Lymphocytes # (Auto) 2.63 K/uL (1.2-3.4) Monocytes # (Auto) 1.36 K/uL (0.11-0.59) H Eosinophils # (Auto) 0.14 K/uL (0-0.5) Basophils # (Auto) 0.08 K/uL (0-0.2) Micro Results Date/Time Source Procedure Growth Status 10/17/17 18:33 Blood Blood Culture Pending Received 10/17/17 18:23 Blood Blood Culture Pending Received Risk Factors for Resistance * Hospitalization for 48 hours or more within the past 90 days * Pt hospitalized 10/03/17 for NSTEMI Assessment & Plan Assessment 67 year old male with cellulitis of L elbow. Ortho consulted to confirm there is no joint involvement. Pt was recently hospitalized in 09/30 for NSTEMI. Swelling developed in L arm 3 -4 weeks ago. Erythema and tenderness increased over past 2 days. Blood cultures pending. Pt received loading dose of vanc on 10/17. Dosing based on estimated pk parameters: ke=0.06 t1/2=~12 Scr is slightly elevated above baseline @1.3 mg/dL. Baseline ~1.2 BMI=34.5 Plan Vancomycin IV * Loading dose: 2500 mg (24 mg/kg) * Maintenance dose: 1250 mg IV (12 mg/kg) every 16 hours * Goal trough level for cellulitis: ~15 mcg/mL * Trough level ordered for 10/20 @0930 prior to fourth maintenance dose. Levels should be at steady state. * A less than traditional dose has been selected due to likelihood of drug accumulation in obese patient. Pharmacy will continue to follow and will adjust dose/frequency as necessary. Thank you.
[2017-10-18] MEDS ORDERED: VANCOMYCIN INJ 1,000 MG in SODIUM CHLORIDE 0.9% 250ML 250 ML IV SCH (09:00)
[2017-10-18] MEDS: LOSARTAN POTASSIUM 50 MG TAB PO SCH (09:04)
[2017-10-18] MEDS: ATORVASTATIN 40 MG TAB PO SCH (09:04)
[2017-10-18] MEDS: ASPIRIN 81 MG ECTAB PO SCH (09:04)
[2017-10-18] MEDS: VANCOMYCIN INJ 1,250 MG in SODIUM CHLORIDE 0.9% 250ML 250 ML IV SCH (10:01)
--- NOTE | 2017-10-18 10:11 | CONSULTATION REPORT ---
DATE OF CONSULTATION: 10/18/2017 REASON FOR CONSULT: Left olecranon septic bursitis. HISTORY OF PRESENT ILLNESS: The patient is a 67-year-old white male who states that approximately a month ago he went to see his primary care physician for swelling in his left elbow. At that time, it was not sore or tender and was just some swelling at the olecranon bursa. He was seen at that time and treated and had been fine since that time; however, starting about 1-2 days ago, he began having some soreness and redness in the left elbow. This continued to increase over time. It got to the point that he was having a lot of pain in the left elbow itself and noticed he was having some erythema go up and down the arm itself. He has a history of CAD and a recent NSTEMI and was admitted here for that and states that he has plans for consultation with a cardiac surgeon in [place] on the . Since that was upcoming, he wanted to be seen for his elbow to get that taken care of. He was seen by the staff last night in the Emergency Room and then also by Dr. Samuels and he was admitted for further care. PAST MEDICAL HISTORY: Above noted CAD with NSTEMI on September 30 with a history of 90% right circumflex disease and [id number] LAD disease. As above noted, he was referred to [facility] for CABG, hypertension, obesity, HPL. FAMILY HISTORY: Noncontributory. SOCIAL HISTORY: The patient is a nonsmoker. He is . ALLERGIES: NKDA. MEDICATIONS: Aspirin 81 mg p.o. q.a.m., atorvastatin 80 mg p.o. daily, gabapentin 300 mg p.o. at bedtime, Cozaar 50 mg p.o. daily, Tylenol 1000 mg p.o. q. 6 hours p.r.n., nitroglycerin 0.4 mg under tongue as directed p.r.n. chest pain. REVIEW OF SYSTEMS: As per admitting history and physical. PHYSICAL EXAMINATION: GENERAL: The patient is a well-developed, well-nourished white male who is alert and oriented x3 and in no acute distress, pleasant and cooperative. EXTREMITIES: On examination of his left upper extremity, he has a line drawn with a pin where his previous erythema had traveled up and down the arm itself. He has a broad area over the left elbow that is erythematous and hot to the touch and is very tender on palpation. He does have some mild fluctuance noted, but is more indurated at this time. He has some minimal pain in the area that was marked with pen and also has some noted swelling as well. The original erythema itself is starting to resolve at this time, but his elbow, he states has not changed. He is able to do range of motion of his elbow at this time, but with pain. He is able to fully extend the elbow and has flexion to approximately 90 degrees. He has no pain going up the left upper extremity. Shoulder is nontender with palpation and/or active and passive range of motion. Left wrist and hand is uninvolved at this time as well. No problems with the right upper extremity and/or the lower extremities at this time. He denies back pain or neck pain at this time. ASSESSMENT: 1. Septic olecranon bursitis. 2. Status post non-ST elevation myocardial infarction in September. 3. History of hypertension. 4. Obesity. 5. Hyperlipidemia. PLAN: I discussed the case with Dr. Samuels. He will likely need an open irrigation and debridement of the left elbow. I have also discussed the case with Dr. Samaniego, who was in the process of clearing the patient medically. We discussed the fact of his recent TX that it would be better to be treated nonsurgically that it is possible that serial aspirations could be done. The patient is also currently eating breakfast and will not be able to have surgery for at least 8 hours, which will put him to approximately 4:30 today. We will await Dr. Samaniego's input for medical clearance and proceed accordingly. I have discussed this with the patient in detail and he is in agreement to go ahead with the treatment that is dictated as necessary.
--- NOTE | 2017-10-18 11:17 | Cardiology Consultation ---
Cardiology Consultation Date of Consultation: Oct 18, 2017. Requesting Physician: Dr. Samaniego Attending Physician: Dr. Ceja Reason for Consultation: Pre-operative cardiovascular evaluation Pt evaluation today including: conversation w/ patient, physical exam, chart review, lab review, review of studies, review of inpatient medication list, conversation w/ attending History of Present Illness Mr. Roque is a 67-year-old male with a past medical history significant for multivessel CAD with upcoming appointment with CT surgery for consideration of CABG and hypertension who presented to the ED yesterday with complaints of pain , swelling, and redness of his left elbow. He was found to have septic olecranon bursitis of the elbow and has since been initiated on IV antibiotic therapy. He is now scheduled to undergo an open irrigation and debridement of the elbow later today. This consultation was requested for a pre-operative cardiovascular evaluation prior to his surgery. The patient's recent cardiac history began on 10/03/2017 when he presented to the ED at [facility] with complaints of intermittent chest pressure/fullness and discomfort in his neck over the previous 2 days. His initial presenting ECG was unremarkable and initial cardiac troponin was negative, however, it subsequently became positive and peaked at 0.105. There were no changes on follow-up ECG. He ultimately underwent cardiac catheterization on 10/05/2017 for further evaluation of his coronary anatomy, which showed 90% ostial circumflex stenosis, 60-70% prox and mid LAD stenosis with eccentric ostial disease extending back into the left main, and 50% distal RCA disease. It was recommended that he be evaluated in a tertiary care center for evaluation for CABG. He was discharged home on 10/06/2017, and he is scheduled with CT surgery at [facility] on 10/30/2017. The patient is currently being seen in his room at [facility]. He reports that he has been feeling well following hospital discharge. He has been out walking his dog around his 7 acre yard for about 20 minutes a few times daily. He denies any recurrent chest discomfort or other anginal type symptoms. He denies shortness of breath or limiting dyspnea. He denies orthopnea, PND, or edema. He denies palpitations, lightheadedness, dizziness, syncope, or presyncope. He denies abnormal bleeding such as melena, hematochezia, or hematuria. He denies cerebrovascular symptoms or claudication symptoms. He denies coughing, wheezing , fevers, or chills. He denies GI or symptoms. Review of Systems: As noted in HPI. All other 10 point ROS reviewed and otherwise negative. Past Medical/Surgical History 1. Multivessel coronary artery disease 2. Hypertension 3. Osteoarthritis 4. Neuropathy Family History Noncontributory. Social History Smoking Status: Former Smoker History of Alcohol Use: No He is a remote smoker. He is and currently retired. 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 Allergies Coded Allergies: No Known Allergies (Unverified , 10/04/17) Medications Current Inpatient Medications Medications (Trade) Dose Ordered Sig/Christal Route Start Time Stop Time Status Last Admin Dose Admin Aspirin (Ecotrin Tab) 81 mg QAM PO 10/18/17 09:00 11/17/17 08:59 10/18/17 09:04 81 MG Atorvastatin Calcium (Lipitor Tab) 80 mg DAILY PO 10/18/17 09:00 11/17/17 08:59 10/18/17 09:04 80 MG Gabapentin (Neurontin Cap) 300 mg HS PO 10/18/17 21:00 11/17/17 20:59 Losartan Potassium (coZAAR TAB) 50 mg DAILY PO 10/18/17 09:00 11/17/17 08:59 10/18/17 09:04 50 MG Acetaminophen (Tylenol Tab) 650 mg Q4H PRN PO 10/17/17 22:15 11/16/17 22:14 Al Hydrox/Mg Hydrox/Simethicone (Maalox Max Susp) 15 ml Q4H PRN PO 10/17/17 22:15 11/16/17 22:14 Magnesium Hydroxide (Milk Of Magnesia Susp) 30 ml Q6H PRN PO 10/17/17 22:15 11/16/17 22:14 Polyethylene (Miralax Powder Packet) 17 gm DAILY PRN PO 10/17/17 22:15 11/16/17 22:14 Zolpidem Tartrate (Ambien Tab) 5 mg HSZ PRN PO 10/17/17 22:15 11/16/17 22:14 Ondansetron HCl (Zofran Inj) 4 mg Q6H PRN IV 10/17/17 22:15 11/16/17 22:14 Tramadol HCl (Ultram Tab) 50 mg Q4H PRN PO 10/17/17 22:30 11/16/17 22:29 10/18/17 09:49 50 MG Potassium Chloride/Dextrose/ Sod Cl 1,000 ml @ 125 mls/hr Q8H IV 10/18/17 01:30 10/18/17 17:29 10/18/17 09:06 125 MLS/HR Ceftriaxone Sodium 1 gm/ Dextrose 50 ml @ 100 mls/hr Q24H IV 10/18/17 20:00 10/27/17 19:59 Vancomycin HCl (Consult) 1 ea UD PRN N/A 10/18/17 03:00 11/17/17 02:59 Vancomycin HCl 1250 mg/Sodium Chloride 275 ml @ 125 mls/hr Q16H IV 10/18/17 10:00 10/27/17 19:59 10/18/17 10:01 125 MLS/HR Physical Exam Vital Signs Past 12 Hours Date Time Temp Pulse Resp B/P (MAP) Pulse Ox O2 Delivery O2 Flow Rate FiO2 10/18/17 07:48 37.2 85 16 133/66 (88) 95 Room Air 10/18/17 07:10 Room Air 10/18/17 00:10 37.0 82 18 162/78 (106) 98 Room Air 10/18/17 00:00 Nasal Cannula 10/18/17 00:00 159/83 Room Air 10/17/17 23:18 72 18 130/89 99 Constitutional: Alert, oriented, in no acute distress HEENT: Head is atraumatic and normocephalic. EOMs intact. Sclera anicteric. Face is symmetric. No perioral cyanosis. Mucous membranes moist. Neck: Supple, no JVD, no carotid bruits Pulmonary: Normal respiratory effort, clear to auscultation bilaterally Cardiac: Regular rate and rhythm, normal S1 and S2, no gallops, no rubs, no murmurs Extremities: No clubbing, cyanosis, or lower extremity edema. Left elbow is edematous, erythematous, and tender. Pulses 2+ and symmetric Abdomen: Normal bowel sounds, soft, non-tender, no abdominal mass palpated Skin: Normal skin color aside from erythematous left elbow. Normal skin turgor. No rash Neurological: Oriented to person, place, and time Data Laboratory Results: Last 24 Hours Test 10/17/17 18:10 10/17/17 19:05 10/18/17 08:27 White Blood Count 17.55 K/uL 14.99 K/uL Red Blood Count 4.61 M/uL 4.26 M/uL Hemoglobin 15.0 g/dL 13.7 g/dL Hematocrit 43.4 % 40.2 % Mean Corpuscular Volume 94.1 fL 94.4 fL Mean Corpuscular Hemoglobin 32.5 pg 32.2 pg Mean Corpuscular Hemoglobin Concent 34.6 g/dl 34.1 g/dl Platelet Count 233 K/uL 214 K/uL Mean Platelet Volume 10.9 fL 10.7 fL Neutrophils (%) (Auto) 75.5 % Lymphocytes (%) (Auto) 15.0 % Monocytes (%) (Auto) 7.7 % Eosinophils (%) (Auto) 0.8 % Basophils (%) (Auto) 0.5 % Neutrophils # (Auto) 13.26 K/uL Lymphocytes # (Auto) 2.63 K/uL Monocytes # (Auto) 1.36 K/uL Eosinophils # (Auto) 0.14 K/uL Basophils # (Auto) 0.08 K/uL RDW Standard Deviation 46.3 fL 46.6 fL RDW Coefficient of Variation 13.5 % 13.5 % Immature Granulocyte % (Auto) 0.5 % Immature Granulocyte # (Auto) 0.08 K/uL Erythrocyte Sedimentation Rate 23 mm/hr Sodium Level 134 mmol/L Potassium Level 3.8 mmol/L Chloride Level 102 mmol/L Carbon Dioxide Level 29 mmol/L Anion Gap 3.0 mmol/L Blood Urea Nitrogen 17 mg/dl Creatinine 1.32 mg/dl Est Creatinine Clear Calc Drug Dose 64.0 ml/min Estimated GFR () 64.7 Estimated GFR (Non- 55.8 BUN/Creatinine Ratio 12.9 Random Glucose 97 mg/dl Calcium Level 9.6 mg/dl C-Reactive Protein 9.30 mg/dl Bedside Lactic Acid Venous 0.81 mmol/L Cardiac catheterization 10/05/2017: 1. Multivessel coronary artery disease - 90% ostial circumflex stenosis - LAD 60-70% proximal and mid segment disease with eccentric ostial disease extending back into left main (Ostial LAD CSA 4 mm2 on IVUS) - 50% distal RCA disease 2. Normal intracardiac filling pressure. Normal LV function. Echo 10/05/2017: 1. Normal LV size. Mild concentric LVH. 2. Normal LV systolic function. LVEF 60-65%. No regional wall motion abnormalities. 3. Normal RV size and function. 4. No significant valvular pathology. 5. Normal estimated PA and RA pressures. Assessment & Plan Patient is a 67-year-old male with known multivessel CAD with an upcoming appointment with CT surgery for consideration of CABG and hypertension who has been found to have septic olecranon bursitis. He is now scheduled to have open irrigation and debridement of the left elbow. He is currently stable and asymptomatic from a cardiovascular standpoint. He denies anginal symptoms at a good functional status. He has no evidence of congestive heart failure or arrhythmia. His recent echocardiogram demonstrated normal LV systolic function with no significant valvular abnormality. He is therefore at an acceptable cardiovascular risk to proceed with scheduled surgery. Recommend close monitoring and avoidance of hypotension, hypertension, tachycardia, hypoxia, and significant anemia throughout the perioperative period. Thank you for allowing us to see this patient in consultation. The patient was discussed with Dr. Ceja, and the plan was made in collaboration with him. ATTENDING NOTE: I personally saw and examined the patient and agree with the documentation noted above. Briefly, the patient is a 67-year-old gentleman with known coronary disease and recent non ST elevation myocardial infarction who requires operative debridement of a left olecranon bursitis. His presenting event was fairly mild in severity. He had an extended period of symptoms with only mild elevation in his cardiac biomarkers. Unclear whether this represented acute coronary syndrome or of a stress response in the setting of severe fixed coronary disease. He was not having symptoms of chest pressure or discomfort leading up to that event. He has not had any similar symptoms since discharge. He has been avoiding strenuous activity by direction, but has not had any anginal symptoms either. While there does appear to be a non surgical option for drainage of his bursitis, the overall procedure appears to be low risk. Given the absence of unstable symptoms he would seem reasonable to proceed as noted above. Taking the appropriate precautions to reduce myocardial oxygen demand and meet myocardial oxygen delivery as noted above is advisable. Patient is not currently on a beta-clarence but this should not be initiated at this time.
--- NOTE | 2017-10-18 14:55 | Progress Note ---
Subjective Date of Service: Oct 18, 2017. Subjective Pt evaluation today including: conversation w/ patient, physical exam, chart review, lab review, review of studies, review of inpatient medication list Pt resting comfortably in bed States less red around elbow Pain is unchanged Denies any chest pain or shortness of breath No incidents overnight Problem List Medical Problems: (1) CAD (coronary artery disease) Status: Chronic (2) Hyperlipidemia, Unspecified Status: Chronic (3) Hypertension Status: Chronic (4) Left arm cellulitis Status: Acute (5) Prediabetes Status: Chronic (6) Septic olecranon bursitis of left elbow Status: Acute Review of Systems Constitutional: No fever, No chills, No sweats, No weakness Eyes: No worsening of vision, No eye pain, No redness, No discharge Respiratory: No cough, No sputum, No wheezing, No shortness of breath Cardiac: No chest pain, No orthopnea, No PND, No edema Abdomen: No pain, No nausea, No vomiting, No diarrhea Musculoskeletal: No joint pain, No muscle pain, No swelling, No calf pain Male : No dysuria, No urinary frequency, No incontinence, No nocturia more than once/night Neurologic: No memory loss, No paralysis, No weakness Psychiatric: No depression symptoms, No anhedonism Skin: + problem reported (elbow redness and pain), No rash, No itch, No new/ changing skin lesions Objective Vital Signs Date Time Temp Pulse Resp B/P (MAP) Pulse Ox O2 Delivery O2 Flow Rate FiO2 10/18/17 07:48 37.2 85 16 133/66 (88) 95 Room Air 10/18/17 07:10 Room Air 10/18/17 00:10 37.0 82 18 162/78 (106) 98 Room Air 10/18/17 00:00 Nasal Cannula 10/18/17 00:00 159/83 Room Air 10/17/17 23:18 72 18 130/89 99 10/17/17 21:25 82 15 137/78 98 Room Air 10/17/17 19:30 20 162/98 100 Room Air 10/17/17 16:49 36.7 77 17 131/84 98 Room Air Physical Exam General Appearance: WD/WN, no apparent distress Eyes: normal inspection, PERRL, EOMI, sclerae normal Neck: supple, no adenopathy, thyroid normal, no JVD Respiratory/Chest: chest non-tender, lungs clear, normal breath sounds, no respiratory distress Cardiovascular: regular rate, rhythm, no edema, no gallop, no JVD Abdomen: normal bowel sounds, non tender, soft, no organomegaly Extremities: normal range of motion, non-tender, normal inspection, no pedal edema Neurologic/Psychiatric: no motor/sensory deficits, alert, normal mood/affect, oriented x 3 Skin: no rash, + pertinent finding (left elbow redness and pain on palpation) Lymphatic: no adenopathy Laboratory Results Last 24 Hours Test 10/17/17 18:10 10/17/17 19:05 10/18/17 08:27 White Blood Count 17.55 K/uL 14.99 K/uL Red Blood Count 4.61 M/uL 4.26 M/uL Hemoglobin 15.0 g/dL 13.7 g/dL Hematocrit 43.4 % 40.2 % Mean Corpuscular Volume 94.1 fL 94.4 fL Mean Corpuscular Hemoglobin 32.5 pg 32.2 pg Mean Corpuscular Hemoglobin Concent 34.6 g/dl 34.1 g/dl Platelet Count 233 K/uL 214 K/uL Mean Platelet Volume 10.9 fL 10.7 fL Neutrophils (%) (Auto) 75.5 % Lymphocytes (%) (Auto) 15.0 % Monocytes (%) (Auto) 7.7 % Eosinophils (%) (Auto) 0.8 % Basophils (%) (Auto) 0.5 % Neutrophils # (Auto) 13.26 K/uL Lymphocytes # (Auto) 2.63 K/uL Monocytes # (Auto) 1.36 K/uL Eosinophils # (Auto) 0.14 K/uL Basophils # (Auto) 0.08 K/uL RDW Standard Deviation 46.3 fL 46.6 fL RDW Coefficient of Variation 13.5 % 13.5 % Immature Granulocyte % (Auto) 0.5 % Immature Granulocyte # (Auto) 0.08 K/uL Erythrocyte Sedimentation Rate 23 mm/hr Sodium Level 134 mmol/L Potassium Level 3.8 mmol/L Chloride Level 102 mmol/L Carbon Dioxide Level 29 mmol/L Anion Gap 3.0 mmol/L Blood Urea Nitrogen 17 mg/dl Creatinine 1.32 mg/dl Est Creatinine Clear Calc Drug Dose 64.0 ml/min Estimated GFR () 64.7 Estimated GFR (Non- 55.8 BUN/Creatinine Ratio 12.9 Random Glucose 97 mg/dl Calcium Level 9.6 mg/dl C-Reactive Protein 9.30 mg/dl Bedside Lactic Acid Venous 0.81 mmol/L Assessment and Plan 67 y/o M CAD - recent NSTEMI, HTN, HPL. Developed some swelling of his L elbow 3-4 weeks prior. The area has become erythematous and tender over the past 2 days. He describes feeling generally ill since that time. He could not confirm fevers or rigors. Septic left olecranon bursitis - Improvement in redness with continuation of vanc and ceftriaxone. Initially - imaging and exam do not support joint involvement presently. Ortho consulted and will need to debride. Cardiology consulted for clearance at this time as pt has severe multivessel CAD. Pt undergoing low risk surgery and is medically cleared for debridement. CAD - no active CP - scheduled for f/u at [facility] 10/26 - instructed to pursue elective CABG, No chest pain, shortness of breath, METS 4 HTN - cont Losartan HPL - cont Lipitor Full code - Heparin prophylaxis
[2017-10-18] MEDS ORDERED: BACITRACIN 50000 UNIT VIAL ONE (17:04)
[2017-10-18] MEDS ORDERED: PROPOFOL IV EMULSION 10 MG/ML 20 ML VIAL IV ONE (17:05)
[2017-10-18] MEDS ORDERED: ONDANSETRON INJ 2 MG/ML 2 ML VIAL ONE (17:05)
[2017-10-18] MEDS ORDERED: SUCCINYLCHOLINE CHLORIDE 20 MG/ML 10 ML VIAL IV ONE (17:05)
[2017-10-18] MEDS ORDERED: NURSING VERBAL MED ORDER ONE (17:10)
[2017-10-18] MEDS ORDERED: CEFAZOLIN SOD 2000MG/10 ML IV PUSH IV ONE (17:18)
--- NOTE | 2017-10-18 17:19 | History & Physical Bridge Note ---
H&P Re-Evaluation Bridge Note: I have examined the patient, reviewed the History & Physical and in the interval since the performance of the History & Physical I have noted the following changes of clinical significance: No changes noted
[2017-10-18] MEDS ORDERED: FENTANYL CITRATE INJ 50 MCG/1 ML 2 ML VIAL ONE (17:32)
[2017-10-18] MEDS ORDERED: LIDOCAINE HCL 2% 2 ML VIAL (20MG/ML) ONE (17:32)
[2017-10-18] MEDS ORDERED: MIDAZOLAM HCL 1 MG/ML 2ML VIAL ONE (17:32)
[2017-10-18] MEDS ORDERED: ROCURONIUM BROMIDE 10 MG/ML 5 ML VIAL IV ONE (18:13)
[2017-10-18] MEDS ORDERED: NEOSTIGMINE METHYLSULFATE 5 MG/5 ML SYR ONE (18:13)
[2017-10-18] MEDS ORDERED: GLYCOPYRROLATE INJ 0.2 MG/ML VIAL ONE (18:13)
[2017-10-18] MEDS ORDERED: HYDROmorphone INJ 1 MG/ML SYR IV PRN (18:15)
[2017-10-18] MEDS ORDERED: EpHEDrine SULFATE INJ 50 MG/ML AMP IV PRN (18:15)
[2017-10-18] MEDS ORDERED: ATROPINE SULFATE 0.1 MG/ML 5ML SYR IV PRN (18:15)
[2017-10-18] MEDS ORDERED: ONDANSETRON INJ 2 MG/ML 2 ML VIAL IV PRN ×2 (18:15→18:45)
[2017-10-18] MEDS ORDERED: LABETALOL HCL IV 5 MG/ML 20ML IV PRN (18:15)
[2017-10-18] MEDS ORDERED: PHENYLEPHRINE 100MCG/ML 5ML SYR IV PRN (18:15)
[2017-10-18] MEDS ORDERED: MAGNESIUM HYDROXIDE SUSP 30 ML UDC PO PRN (18:45)
[2017-10-18] MEDS ORDERED: CEFAZOLIN IV 2,000 MG in DEXTROSE 5% 50ML 50 ML IV SCH (18:45)
[2017-10-18] MEDS ORDERED: BISACODYL 10 MG SUPP PR PRN (18:45)
[2017-10-18] MEDS ORDERED: SOD PHOSPHATE/SOD BIPHOSPHATE ENEMA 132 ML BTL PR PRN (18:45)
[2017-10-18] MEDS ORDERED: ZOLPIDEM TARTRATE 5 MG TAB PO PRN (18:45)
[2017-10-18] MEDS ORDERED: ALUMINUM/MAGNESIUM/SIMETH (MAALOX MAX) 30 ML UDC PO PRN (18:45)
--- NOTE | 2017-10-18 18:54 | [facility] Operative Report ---
Operative Report Operative Date Oct 18, 2017. Pre-Operative Diagnosis Left Olecranon Septic Bursitis Post-Operative Diagnosis Same as preoperative diagnosis Procedure(s) Performed Incision and Debridement Left Olecranon Bursa Surgeon Dr. Samuels Academic Coordinator Surgeon(s) Virgie COUGHLIN Estimated Blood Loss 10ml Findings As above Specimens culture #1 left olecranon aerobic, anerobic gram stain Drains one VIMAL drain Anesthesia Gen. Complication(s) None Disposition Recovery Room / PACU Indications The patient is a 67-year-old male that had about a month's history of noninfectious olecranon bursitis. Over the last 4 days or so he has been having increasing erythema and swelling over the left olecranon bursa. He presents the emergency room yesterday and was submitted for treatment of IV antibiotics. He is had a recent cardiac history and was scheduled for evaluation for bypass in [place]. He has a large septic olecranon bursa now and presents for irrigation and debridement. Description of Procedure Risks, benefits and alternatives to surgery including, but not limited to, infection, DVT, pain, stiffness, need for revision surgery, failure to relieve all symptoms, damage to blood vessels, damage to nerves, risk of the anesthesia were discussed with the patient and they wished to proceed. The patient was identified. Laterality was confirmed and marked. The patient received a preoperative antibiotic. They were transferred to the operating room and placed in supine position and induced into general endotracheal anesthesia per the anesthesia staff. A well-padded tourniquet was placed on the arm and the limb was prepped and draped in the usual standard manner with ChloraPrep. The tourniquet was inflated. I then made a longitudinal incision over the olecranon bursa. We then encountered purulent material and this material was cultured. We then performed a sharp debridement down to level of bone debriding all of the material from the olecranon bursa. There was a fair amount of chronic inflammatory chalky type material within the olecranon bursa that was debrided along with the purulent material. The wound was then thoroughly irrigated with bacitracin normal saline. A VIMAL drain was then placed through a stab incision. The wound was closed with interrupted 3-0 nylon suture. A sterile dressing was applied and the tourniquet was released. All needle and sponge counts were correct at the end of the procedure. The patient was transferred to the PACU in stable condition without apparent complication. The PA-C was necessary for assistance with procedure for assistance in positioning, prepping, draping, retraction and closure. I attest to the content of the Intraoperative Record and any orders documented therein. Any exceptions are noted below.
[2017-10-18] MEDS: FENTANYL CITRATE INJ 50 MCG/1 ML 2 ML VIAL IV PRN ×2 (19:07→19:11)
--- NOTE | 2017-10-18 19:36 | Anesthesiology Progress Note ---
Anesthesia Post Op Note Date & Time Oct 18, 2017 at 19:36 Vital Signs Pain Intensity: 2 Vital Signs Past 12 Hours Date Time Temp Pulse Resp B/P (MAP) Pulse Ox O2 Delivery O2 Flow Rate FiO2 10/18/17 19:25 36.8 76 13 142/81 97 Nasal Cannula 2 10/18/17 19:15 68 12 139/76 95 Nasal Cannula 2 10/18/17 19:05 74 18 136/87 99 Oxymask 10 10/18/17 18:55 61 11 149/87 96 Oxymask 10 10/18/17 18:48 36.6 63 14 144/75 98 Oxymask 10 10/18/17 17:45 Room Air 10/18/17 15:01 37.5 81 18 124/75 (91) 94 Room Air 10/18/17 07:48 37.2 85 16 133/66 (88) 95 Room Air Notes Mental Status: alert / awake / arousable, participated in evaluation Pt Amnestic to Procedure: Yes Nausea / Vomiting: adequately controlled Pain: adequately controlled Airway Patency, RR, SpO2: stable & adequate BP & HR: stable & adequate Hydration State: stable & adequate Anesthetic Complications: no major complications apparent Doing well. No complaints. VSS.
[2017-10-18] MEDS: OXYCODONE HCL IR 5 MG TAB (IMMEDIATE RELEASE) PO PRN (20:17)
[2017-10-18] MEDS: D5W AND 1/2NSS + 20MEQ KCL 1,000 ML IV SCH (20:40)
[2017-10-18] MEDS: SENNA 8.6 MG TAB PO SCH (21:00)
[2017-10-18] MEDS: CEFTRIAXONE SOD INJ 1 GM in DEXTROSE 5% ADD-VANTAGE 50ML 50 ML IV SCH (21:50)
[2017-10-18] MEDS: GABAPENTIN 300 MG CAP PO SCH (21:50)
[2017-10-18] MEDS: DOCUSATE SODIUM 100 MG CAP PO SCH (21:51)
[2017-10-18] MEDS: ACETAMINOPHEN 500 MG TAB PO SCH (21:51)
[2017-10-19] VITALS (7 sets, daily range): BP systolic 111–144; BP diastolic 64–82; PULSE 56–86; TEMP 36.3–37.4; O2SAT 94–98
[2017-10-19] MEDS: VANCOMYCIN INJ 1,250 MG in SODIUM CHLORIDE 0.9% 250ML 250 ML IV SCH ×2 (01:38→14:34)
[2017-10-19] MEDS ORDERED: CEFAZOLIN IV 2,000 MG in SYRINGE 0 ML IV SCH (02:00)
[2017-10-19] MEDS: ACETAMINOPHEN 500 MG TAB PO SCH ×3 (06:27→21:43)
[2017-10-19] MEDS: D5W AND 1/2NSS + 20MEQ KCL 1,000 ML IV SCH ×2 (06:28→19:52)
[2017-10-19 07:42] LABS: HEMATOCRIT 36.9 % (42-52); HEMOGLOBIN 12.3 g/dL (14.0-18.0); MEAN CELL VOLUME 96.1 fL (80-100); MEAN CORPUSCULAR HGB CONC 33.3 g/dl (32-36); MEAN PLATELET VOLUME 11.5 fL (7.4-10.4); PLATELET COUNT 196 K/uL (130-400); RED CELL DISTRIBUTION WIDTH CV 13.8 % (11.5-14.5); RED CELL DISTRIBUTION WIDTH SD 48.8 fL (36.4-46.3); WHITE BLOOD COUNT 12.57 K/uL (4.8-10.8)
--- NOTE | 2017-10-19 07:58 | Orthopedic Progress Note ---
Orthopedic Progress Note Date of Service Oct 19, 2017. Subjective Post OP Day: 1 Reports: feeling well, Denies: complaints Objective capillary refill less than 2 sec., dressing C/D/I, A&O x3, CMS intact, hemovac drainage (10ml) Able to do gentle ROM of the left elbow. Date Time Temp Pulse Resp B/P (MAP) Pulse Ox O2 Delivery O2 Flow Rate FiO2 10/19/17 07:15 Room Air 10/19/17 03:21 36.9 56 15 111/64 (80) 95 Room Air 10/18/17 23:20 Room Air 10/18/17 22:45 37.0 77 18 126/69 (88) 95 Room Air 10/18/17 21:42 37.0 90 18 109/72 (84) 94 Room Air 10/18/17 20:49 Nasal Cannula 2.0 10/18/17 20:41 37.1 95 16 120/77 (91) 97 Room Air 10/18/17 20:10 37.5 79 16 148/84 (105) 97 Nasal Cannula 2.0 10/18/17 19:25 36.8 76 13 142/81 97 Nasal Cannula 2 10/18/17 19:15 68 12 139/76 95 Nasal Cannula 2 10/18/17 19:05 74 18 136/87 99 Oxymask 10 10/18/17 18:55 61 11 149/87 96 Oxymask 10 10/18/17 18:48 36.6 63 14 144/75 98 Oxymask 10 10/18/17 17:45 Room Air 10/18/17 15:01 37.5 81 18 124/75 (91) 94 Room Air Laboratory Results 24 Hours: Test 10/18/17 08:27 10/19/17 06:27 Hematocrit 40.2 % 36.9 % Hemoglobin 13.7 g/dL 12.3 g/dL Prothromb Time International Ratio 1.0 Prothrombin Time 10.7 SECONDS Assessment & Plan Assessment: Left Septic Olecranon Bursitis Plan: Gram Stain/Cx's pending Continue IV antibx Plan for dressing change and drain removal Sunday Inhouse Planning Pain Management: PO Tylenol, Oxy IR DVT Prophylaxis: TEDs, SCDs
[2017-10-19 08:05] LABS: CALCIUM 8.3 mg/dl (8.5-10.1); CREATININE 1.12 mg/dl (0.60-1.40); POTASSIUM 4.1 mmol/L (3.5-5.1)
[2017-10-19] MEDS: LOSARTAN POTASSIUM 50 MG TAB PO SCH (08:22)
[2017-10-19] MEDS: ATORVASTATIN 40 MG TAB PO SCH (08:22)
[2017-10-19] MEDS: FERROUS GLUCONATE 324 MG TAB PO SCH ×3 (08:22→18:12)
[2017-10-19] MEDS: MULTIVITAMIN TAB PO SCH (08:22)
[2017-10-19] MEDS: DOCUSATE SODIUM 100 MG CAP PO SCH ×2 (08:22→21:42)
[2017-10-19] MEDS: ASPIRIN 81 MG ECTAB PO SCH (08:22)
[2017-10-19] MEDS ORDERED: ASPIRIN 81 MG ECTAB PO SCH (09:00)
--- NOTE | 2017-10-19 10:14 | Pharmacy Progress Note ---
Pharmacy Abx Dose Short Note Date of Service Oct 19, 2017. Assessment & Plan Assessment 67 year old male receiving Vancomycin and rocephin for treatment of cellulitis. Day # 3 of antimicrobial therapy. * Vancomycin dosing changed due to improvement in Scr. * Estimated t1/2=10hrs. * Blood cultures have NGTD, elbow drainage culture pending * Trough level ordered early due to possibility of accumulation and is not reflective of steadystate. * Pt improving on iv abx Plan Vancomycin * Change to 1250 mg (12mg/kg) IV every 12 hours * Goal trough level for cellulitis ~15 mcg/mL * Trough or random level ordered for: 10/20 @ 2765 Pharmacy will continue to follow and will adjust dose/frequency as necessary. Thank you.
--- NOTE | 2017-10-19 11:13 | Progress Note ---
Progress Note Date of Service Oct 19, 2017. Progress Note ID Consult Dictated #[id number] A/P: 1. Left elbow septic arthritis -Conitnue current abx, follow cultures -Will likely need 3 weeks abs post d/c. await culture results for final recs -thank you
--- NOTE | 2017-10-19 11:38 | INFECT. DISEASE CONSULTATION ---
DATE OF CONSULTATION: 10/19/2017 HISTORY OF PRESENT ILLNESS: This is a 67-year-old gentleman who was admitted to the hospital with pain and swelling of his left elbow, which started 3-4 weeks prior. He had increasing redness over the past days. Prior to admission, he did have some fatigue and some subjective fevers at home. For this reason, he came to the Emergency Room and was subsequently admitted. He initially had a white blood cell count of 17.5 and this has improved to 12.5. He was placed empirically on vancomycin and Rocephin and he remains on these antibiotics. He is tolerating them well. On admission, his sed rate was mildly elevated at 23 and CRP was 9.3. He did have blood cultures drawn in the ER, which are negative to date. He was also evaluated by orthopedics and was taken to the operating room for a washout. He tolerated this well. OR cultures are pending. He did have an x-ray in the ER, which did not show any evidence of osseous disease. He denies any trauma to the area. He does have a history of heart disease and he has an appointment with cardiology there on the . Currently, he states he is tolerating antibiotics well. He does admit to some pain in the area of the VIMAL drain, but otherwise he denies any pain. He states his range of motion has improved since the wound was debrided. He denies any chest pain, cough, shortness of breath, nausea, vomiting or diarrhea. His remaining review of systems is unremarkable. PAST MEDICAL AND SURGICAL HISTORY: Significant for coronary artery disease with a history of non-ST elevated AR in September. He is currently awaiting a referral in [place] for CABG surgery. Hypertension, hyperlipidemia and obesity. FAMILY HISTORY: Noncontributory. SOCIAL HISTORY: Negative for tobacco use, alcohol use or drug use. ALLERGIES: He has no known drug allergies. MEDICATIONS: Include vancomycin, multivitamin, Ecotrin, iron, Tylenol, Neurontin, Senokot, Colace, Rocephin, oxycodone, Dulcolax, Fleet enema, Benadryl, Maalox, Lipitor, Cozaar, Ultram, and Ambien. PHYSICAL EXAMINATION: VITAL SIGNS: He is afebrile, pulse 81, respiratory rate 18, blood pressure 121/70, and oxygen saturation is 94%-95% on room air. GENERAL: He is awake, alert and oriented x3. He is in no acute distress. HEENT: Mucous membranes are moist. Extraocular muscles are intact. HEART: Regular. LUNGS: Clear anteriorly. ABDOMEN: Soft and nondistended. There is no lower extremity edema. SKIN: Without rash. EXTREMITIES: Examination of the left upper extremity reveals the dressing to be clean, dry and intact. The VIMAL drain is in place with minimal serosanguineous fluid. Sensation is intact in the left hand. LABORATORY STUDIES: CBC reveals a white blood cell count of 12.5, hemoglobin 12.3, and platelets are 196. Sed rate was 23 on admission. Chemistry panel reveals a sodium of 135, potassium 4.1, chloride 101, bicarbonate 28, BUN 15, creatinine 1.1 and glucose is 124. CRP was 9.3. Blood cultures are no growth to date from the 3rd x 2 sets. OR culture on the 4th has many WBCs and no organisms. There is no previous micro to review. Imaging is as above. ASSESSMENT AND PLAN: Septic arthritis of the left elbow. He will continue him on empiric antibiotics. Pending final culture, he will likely need 3 weeks of antibiotics post discharge from the hospital. Selection of antibiotics will depend on final micro. Leukocytosis is improving. Thank you for this consultation.
[2017-10-19] MEDS: OXYCODONE HCL IR 5 MG TAB (IMMEDIATE RELEASE) PO PRN ×2 (12:02→23:11)
--- NOTE | 2017-10-19 15:05 | Progress Note ---
Subjective Date of Service: Oct 19, 2017. Subjective Pt evaluation today including: conversation w/ patient, physical exam, chart review, lab review, review of studies, review of inpatient medication list Pt resting comfortably in bed Arm in bandage Pain controlled Drain in place Problem List Medical Problems: (1) CAD (coronary artery disease) Status: Chronic (2) Hyperlipidemia, Unspecified Status: Chronic (3) Hypertension Status: Chronic (4) Left arm cellulitis Status: Acute (5) Prediabetes Status: Chronic (6) Septic olecranon bursitis of left elbow Status: Acute Review of Systems Constitutional: No fever, No chills, No sweats, No weight loss Eyes: No worsening of vision, No eye pain, No redness, No discharge ENT: No hearing loss, No unusual epistaxis, No nasal symptoms, No sore throat Respiratory: No cough, No sputum, No wheezing, No shortness of breath Cardiac: No chest pain, No orthopnea, No PND, No edema Abdomen: No pain, No nausea, No vomiting, No diarrhea Musculoskeletal: + joint pain, No muscle pain, No swelling, No calf pain Male : No dysuria, No urinary frequency, No incontinence, No slowing stream Neurologic: No memory loss, No paralysis, No weakness, No numbness/tingling Psychiatric: No depression symptoms, No anhedonism, No anxiety, No insomnia Heme: No abnormal bleeding/bruising, No clotting problems, No swollen lymph nodes, No night sweats Skin: No rash, No itch Objective Vital Signs Date Time Temp Pulse Resp B/P (MAP) Pulse Ox O2 Delivery O2 Flow Rate FiO2 10/19/17 14:57 37.2 78 18 144/78 (100) 98 Room Air 10/19/17 12:13 36.3 86 18 122/78 (93) 94 Room Air 10/19/17 10:30 94 Room Air 10/19/17 08:20 81 121/70 (87) 10/19/17 07:56 36.9 80 18 122/82 (95) 94 Room Air 10/19/17 07:15 Room Air 10/19/17 03:21 36.9 56 15 111/64 (80) 95 Room Air 10/18/17 23:20 Room Air 10/18/17 22:45 37.0 77 18 126/69 (88) 95 Room Air 10/18/17 21:42 37.0 90 18 109/72 (84) 94 Room Air 10/18/17 20:49 Nasal Cannula 2.0 10/18/17 20:41 37.1 95 16 120/77 (91) 97 Room Air 10/18/17 20:10 37.5 79 16 148/84 (105) 97 Nasal Cannula 2.0 10/18/17 19:25 36.8 76 13 142/81 97 Nasal Cannula 2 10/18/17 19:15 68 12 139/76 95 Nasal Cannula 2 10/18/17 19:05 74 18 136/87 99 Oxymask 10 10/18/17 18:55 61 11 149/87 96 Oxymask 10 10/18/17 18:48 36.6 63 14 144/75 98 Oxymask 10 10/18/17 17:45 Room Air Physical Exam General Appearance: WD/WN, no apparent distress Eyes: normal inspection, PERRL, EOMI, sclerae normal Neck: supple, no adenopathy, thyroid normal, no JVD Respiratory/Chest: chest non-tender, lungs clear, normal breath sounds, no respiratory distress Cardiovascular: regular rate, rhythm, no edema, no gallop, no JVD Abdomen: normal bowel sounds, non tender, soft, no organomegaly Extremities: normal range of motion, non-tender, normal inspection, no pedal edema Neurologic/Psychiatric: no motor/sensory deficits, alert, normal mood/affect, oriented x 3 Skin: normal color, warm/dry, no rash Lymphatic: no adenopathy Laboratory Results Last 24 Hours Test 10/19/17 06:27 White Blood Count 12.57 K/uL Red Blood Count 3.84 M/uL Hemoglobin 12.3 g/dL Hematocrit 36.9 % Mean Corpuscular Volume 96.1 fL Mean Corpuscular Hemoglobin 32.0 pg Mean Corpuscular Hemoglobin Concent 33.3 g/dl RDW Standard Deviation 48.8 fL RDW Coefficient of Variation 13.8 % Platelet Count 196 K/uL Mean Platelet Volume 11.5 fL Prothrombin Time 10.7 SECONDS Prothromb Time International Ratio 1.0 Sodium Level 135 mmol/L Potassium Level 4.1 mmol/L Chloride Level 101 mmol/L Carbon Dioxide Level 28 mmol/L Anion Gap 6.0 mmol/L Blood Urea Nitrogen 15 mg/dl Creatinine 1.12 mg/dl Est Creatinine Clear Calc Drug Dose 75.4 ml/min Estimated GFR () 78.9 Estimated GFR (Non- 68.1 BUN/Creatinine Ratio 13.4 Random Glucose 124 mg/dl Calcium Level 8.3 mg/dl Assessment and Plan 67 y/o M CAD - recent NSTEMI, HTN, HPL. Developed some swelling of his L elbow 3-4 weeks prior. The area has become erythematous and tender over the past 2 days. He describes feeling generally ill since that time. He could not confirm fevers or rigors. Septic left olecranon bursitis - Improvement in redness with continuation of vanc and ceftriaxone. Initially - imaging and exam do not support joint involvement presently. Ortho consulted, debridement completed on 10/18. Cardiology consulted for clearance at this time as pt has severe multivessel CAD. Pt undergoing low risk surgery and is medically cleared for debridement. Awaiting cx at this time. Cont IV antibx CAD - no active CP - scheduled for f/u at [facility] 10/26 - instructed to pursue elective CABG, No chest pain, shortness of breath, METS 4 HTN - cont Losartan HPL - cont Lipitor Full code - Heparin prophylaxis
[2017-10-19] MEDS: CEFTRIAXONE SOD INJ 1 GM in DEXTROSE 5% ADD-VANTAGE 50ML 50 ML IV SCH (19:50)
[2017-10-19] MEDS: GABAPENTIN 300 MG CAP PO SCH (21:42)
[2017-10-19] MEDS: SENNA 8.6 MG TAB PO SCH (21:42)
[2017-10-20] MEDS ORDERED: VANCOMYCIN TROUGH ONE ×2 (01:30→09:30)
[2017-10-20] MEDS: VANCOMYCIN INJ 1,250 MG in SODIUM CHLORIDE 0.9% 250ML 250 ML IV SCH ×2 (01:53→13:48)
[2017-10-20] MEDS: D5W AND 1/2NSS + 20MEQ KCL 1,000 ML IV SCH ×2 (02:00→08:58)
[2017-10-20] MEDS: ACETAMINOPHEN 500 MG TAB PO SCH ×3 (06:18→22:41)
[2017-10-20 06:37] LABS: HEMATOCRIT 36.7 % (42-52); HEMOGLOBIN 12.3 g/dL (14.0-18.0); MEAN CELL VOLUME 94.1 fL (80-100); MEAN CORPUSCULAR HEMOGLOBIN 31.5 pg (25-34); MEAN CORPUSCULAR HGB CONC 33.5 g/dl (32-36); MEAN PLATELET VOLUME 10.9 fL (7.4-10.4); PLATELET COUNT 224 K/uL (130-400); RED CELL DISTRIBUTION WIDTH CV 13.3 % (11.5-14.5); RED CELL DISTRIBUTION WIDTH SD 45.8 fL (36.4-46.3); WHITE BLOOD COUNT 14.75 K/uL (4.8-10.8)
[2017-10-20 06:56] VITALS: BP 125/73; PULSE 72; TEMP 36.6; O2SAT 96
[2017-10-20 07:02] LABS: CALCIUM 8.4 mg/dl (8.5-10.1); CREATININE 1.16 mg/dl (0.60-1.40); POTASSIUM 3.9 mmol/L (3.5-5.1)
--- NOTE | 2017-10-20 07:54 | Orthopedic Progress Note ---
Orthopedic Progress Note Date of Service Oct 20, 2017. Subjective Post OP Day: 2 Reports: feeling well, pain controlled w PO medications, Denies: complaints, chest pain, SOB, nausea / vomiting, light headedness, calf pain Objective N/V intact, capillary refill less than 2 sec., incision C/D/I, A&O x3 drain removed, approximately 20cc bloodly fluid in drain. erythema noted around incisional area/bursa, but decreased from marked out area Date Time Temp Pulse Resp B/P (MAP) Pulse Ox O2 Delivery O2 Flow Rate FiO2 10/20/17 06:56 36.6 72 19 125/73 (90) 96 Room Air 10/19/17 23:26 Room Air 10/19/17 22:56 37.4 85 16 144/82 (102) 94 Room Air 10/19/17 15:50 Room Air 10/19/17 14:57 37.2 78 18 144/78 (100) 98 Room Air 10/19/17 12:13 36.3 86 18 122/78 (93) 94 Room Air 10/19/17 10:30 94 Room Air 10/19/17 08:20 81 121/70 (87) 10/19/17 07:56 36.9 80 18 122/82 (95) 94 Room Air Laboratory Results 24 Hours: Test 10/20/17 06:09 Hematocrit 36.7 % Hemoglobin 12.3 g/dL Prothromb Time International Ratio 1.0 Prothrombin Time 10.7 SECONDS Assessment & Plan Assessment: Left Septic Olecranon Bursitis POD #2 s/p I&D drain removed today dressing changed awaiting final cultures, Abx per ID cont to ice/elevate for swelling Plan: Gram Stain/Cx's pending Continue IV antibx
[2017-10-20] MEDS: FERROUS GLUCONATE 324 MG TAB PO SCH ×3 (08:27→17:53)
[2017-10-20] MEDS: DOCUSATE SODIUM 100 MG CAP PO SCH ×2 (08:27→20:26)
[2017-10-20] MEDS: ASPIRIN 81 MG ECTAB PO SCH (08:28)
[2017-10-20] MEDS: ATORVASTATIN 40 MG TAB PO SCH (08:28)
[2017-10-20] MEDS: MULTIVITAMIN TAB PO SCH (08:28)
[2017-10-20] MEDS: LOSARTAN POTASSIUM 50 MG TAB PO SCH (08:28)
--- NOTE | 2017-10-20 08:38 | Pharmacy Progress Note ---
Pharmacy Abx Dose Short Note Date of Service Oct 20, 2017. Assessment & Plan Assessment 67 year old male receiving vancomycin and Rocephin for treatment of septic arthritis of left elbow. Day # 4 of antimicrobial therapy. Plan Vancomycin * Trough level of 11.1 mcg/mL is subtherapeutic, however, pt w/ BMI 34.5kg/m2. Cautious dosing as anticipate accumulation. * Continue dose of 1250 mg IV every 12 hours until cultures back per ID and ortho. * Goal trough level for cellulitis : 15 to 20 mcg/mL * Trough or random level ordered for: 10/21 prior to 1400 dose. Pharmacy will continue to follow and will adjust dose/frequency as necessary. Thank you.
[2017-10-20] MEDS ORDERED: NURSING VERBAL MED ORDER ONE (13:30)
[2017-10-20 15:04] VITALS: BP 160/80; PULSE 83; TEMP 37.2; O2SAT 98
--- NOTE | 2017-10-20 17:05 | Progress Note ---
Subjective Date of Service: Oct 20, 2017. Subjective Pt evaluation today including: conversation w/ patient, physical exam, chart review, lab review, review of studies, review of inpatient medication list Reports no worsening pain No fevers No issues overnight Problem List Medical Problems: (1) CAD (coronary artery disease) Status: Chronic (2) Hyperlipidemia, Unspecified Status: Chronic (3) Hypertension Status: Chronic (4) Left arm cellulitis Status: Acute (5) Prediabetes Status: Chronic (6) Septic olecranon bursitis of left elbow Status: Acute Review of Systems Constitutional: No fever, No chills, No sweats, No weight loss Eyes: No worsening of vision, No eye pain, No redness, No discharge Respiratory: No cough, No sputum, No wheezing, No shortness of breath, No dyspnea on exertion Cardiac: No chest pain, No orthopnea, No PND, No edema Abdomen: No pain, No nausea, No vomiting, No diarrhea, No constipation Musculoskeletal: No joint pain, No muscle pain, No swelling, No calf pain Male : No dysuria, No urinary frequency, No incontinence, No slowing stream Psychiatric: No depression symptoms, No anhedonism, No anxiety, No insomnia Endo: No fatigue, No excessive thirst Skin: No rash, No itch Objective Vital Signs Date Time Temp Pulse Resp B/P (MAP) Pulse Ox O2 Delivery O2 Flow Rate FiO2 10/20/17 15:30 Room Air 10/20/17 15:04 37.2 83 18 160/80 (106) 98 Room Air 10/20/17 07:45 Room Air 10/20/17 06:56 36.6 72 19 125/73 (90) 96 Room Air 10/19/17 23:26 Room Air 10/19/17 22:56 37.4 85 16 144/82 (102) 94 Room Air Physical Exam General Appearance: WD/WN, no apparent distress Eyes: normal inspection, PERRL, EOMI, sclerae normal Neck: supple, no adenopathy, thyroid normal, no JVD Respiratory/Chest: chest non-tender, lungs clear, normal breath sounds, no respiratory distress Cardiovascular: regular rate, rhythm, no edema, no gallop, no JVD Abdomen: normal bowel sounds, non tender, soft, no organomegaly Extremities: normal range of motion, non-tender, normal inspection, no pedal edema Neurologic/Psychiatric: no motor/sensory deficits, alert, normal mood/affect, oriented x 3 Skin: normal color, warm/dry, no rash Lymphatic: no adenopathy Laboratory Results Last 24 Hours Test 10/20/17 01:23 10/20/17 06:09 Vancomycin Level Trough 11.1 mcg/ml White Blood Count 14.75 K/uL Red Blood Count 3.90 M/uL Hemoglobin 12.3 g/dL Hematocrit 36.7 % Mean Corpuscular Volume 94.1 fL Mean Corpuscular Hemoglobin 31.5 pg Mean Corpuscular Hemoglobin Concent 33.5 g/dl RDW Standard Deviation 45.8 fL RDW Coefficient of Variation 13.3 % Platelet Count 224 K/uL Mean Platelet Volume 10.9 fL Prothrombin Time 10.7 SECONDS Prothromb Time International Ratio 1.0 Sodium Level 136 mmol/L Potassium Level 3.9 mmol/L Chloride Level 103 mmol/L Carbon Dioxide Level 26 mmol/L Anion Gap 7.0 mmol/L Blood Urea Nitrogen 14 mg/dl Creatinine 1.16 mg/dl Est Creatinine Clear Calc Drug Dose 72.8 ml/min Estimated GFR () 75.6 Estimated GFR (Non- 65.3 BUN/Creatinine Ratio 12.1 Random Glucose 137 mg/dl Calcium Level 8.4 mg/dl Assessment and Plan 67 y/o M CAD - recent NSTEMI, HTN, HPL. Developed some swelling of his L elbow 3-4 weeks prior. The area has become erythematous and tender over the past 2 days. He describes feeling generally ill since that time. He could not confirm fevers or rigors. Septic left olecranon bursitis - Improvement in redness with continuation of vanc and ceftriaxone. Initially - imaging and exam do not support joint involvement presently. Ortho consulted, debridement completed on 10/18. Cardiology consulted for clearance at this time as pt has severe multivessel CAD. Pt undergoing low risk surgery and is medically cleared for debridement. Awaiting cx at this time. Cont IV antibx. Appreciated ID recs CAD - no active CP - scheduled for f/u at [facility] 10/26 - instructed to pursue elective CABG, No chest pain, shortness of breath, METS 4 HTN - cont Losartan HPL - cont Lipitor Full code - Heparin prophylaxis
[2017-10-20] MEDS: CEFTRIAXONE SOD INJ 1 GM in DEXTROSE 5% ADD-VANTAGE 50ML 50 ML IV SCH (20:25)
[2017-10-20] MEDS: SENNA 8.6 MG TAB PO SCH (20:26)
[2017-10-20] MEDS: GABAPENTIN 300 MG CAP PO SCH (20:26)
[2017-10-20] MEDS: TRAMADOL HCL 50 MG TAB PO PRN (20:29)
[2017-10-20 22:52] VITALS: BP 156/88; PULSE 79; TEMP 37.1; O2SAT 97
[2017-10-21] MEDS: VANCOMYCIN INJ 1,250 MG in SODIUM CHLORIDE 0.9% 250ML 250 ML IV SCH ×3 (02:19→23:30)
[2017-10-21] MEDS: ACETAMINOPHEN 500 MG TAB PO SCH ×3 (05:31→22:08)
[2017-10-21 06:01] LABS: HEMATOCRIT 35.3 % (42-52); MEAN CELL VOLUME 94.1 fL (80-100); MEAN PLATELET VOLUME 11.1 fL (7.4-10.4); PLATELET COUNT 226 K/uL (130-400); RED CELL DISTRIBUTION WIDTH CV 13.3 % (11.5-14.5); RED CELL DISTRIBUTION WIDTH SD 45.8 fL (36.4-46.3)
[2017-10-21 06:35] LABS: CREATININE 0.92 mg/dl (0.60-1.40)
--- NOTE | 2017-10-21 06:51 | Orthopedic Progress Note ---
Orthopedic Progress Note Date of Service Oct 21, 2017. Subjective Post OP Day: 3 Reports: feeling well, pain controlled w PO medications, Denies: complaints, chest pain, SOB, nausea / vomiting, light headedness, calf pain Objective N/V intact, capillary refill less than 2 sec., A&O x3 swelling noted to left hand, erythema well localized to the bursa, has decreased in severity since sx in comparison to marked borders. NVDI. able to wiggle fingers, move wrist without pain, radial +2 Date Time Temp Pulse Resp B/P (MAP) Pulse Ox O2 Delivery O2 Flow Rate FiO2 10/20/17 23:49 Room Air 10/20/17 22:52 37.1 79 17 156/88 (110) 97 Room Air 10/20/17 15:30 Room Air 10/20/17 15:04 37.2 83 18 160/80 (106) 98 Room Air 10/20/17 07:45 Room Air 10/20/17 06:56 36.6 72 19 125/73 (90) 96 Room Air Laboratory Results 24 Hours: Test 10/21/17 05:21 Hematocrit 35.3 % Hemoglobin 12.0 g/dL Prothromb Time International Ratio 1.0 Prothrombin Time 10.8 SECONDS Assessment & Plan Assessment: Left Septic Olecranon Bursitis POD #3 s/p I&D drain removed yesterday dressing changed awaiting final cultures, preliminary no growth to date, Abx per ID cont to ice/elevate for swelling Plan: Gram Stain/Cx's pending Continue IV antibx
[2017-10-21 07:50] VITALS: BP 168/76; PULSE 70; TEMP 36.6; O2SAT 97
[2017-10-21] MEDS: ASPIRIN 81 MG ECTAB PO SCH (09:07)
[2017-10-21] MEDS: DOCUSATE SODIUM 100 MG CAP PO SCH ×2 (09:07→20:42)
[2017-10-21] MEDS: FERROUS GLUCONATE 324 MG TAB PO SCH ×3 (09:07→18:05)
[2017-10-21] MEDS: ATORVASTATIN 40 MG TAB PO SCH (09:07)
[2017-10-21] MEDS: LOSARTAN POTASSIUM 50 MG TAB PO SCH (09:08)
[2017-10-21] MEDS: MULTIVITAMIN TAB PO SCH (09:08)
[2017-10-21] MEDS ORDERED: NURSING VERBAL MED ORDER ONE (09:15)
[2017-10-21] MEDS ORDERED: FUROSEMIDE 40 MG TAB PO ONE (09:45)
--- NOTE | 2017-10-21 10:59 | Progress Note ---
Orthopedic SOAP Note Subjective Date of Service: Oct 21, 2017. Reports: feeling well, pain controlled w PO medications Problem List Medical Problems: (1) CAD (coronary artery disease) Status: Chronic (2) Hyperlipidemia, Unspecified Status: Chronic (3) Hypertension Status: Chronic (4) Left arm cellulitis Status: Acute (5) Prediabetes Status: Chronic (6) Septic olecranon bursitis of left elbow Status: Acute Objective drainage from drain site c/w gout crystals ,no jaqueline pus. Date Time Temp Pulse Resp B/P (MAP) Pulse Ox O2 Delivery O2 Flow Rate FiO2 10/21/17 09:00 Room Air 10/21/17 07:50 36.6 70 18 168/76 (106) 97 Room Air 10/20/17 23:49 Room Air 10/20/17 22:52 37.1 79 17 156/88 (110) 97 Room Air 10/20/17 15:30 Room Air 10/20/17 15:04 37.2 83 18 160/80 (106) 98 Room Air Laboratory Results 24 Hours: Test 10/21/17 05:21 Hematocrit 35.3 % Hemoglobin 12.0 g/dL Prothromb Time International Ratio 1.0 Prothrombin Time 10.8 SECONDS Assessment Left Septic Olecranon Bursitis POD #3 s/p I&D drain removed yesterday dressing changed awaiting final cultures, preliminary no growth to date, Abx per ID cont to ice/elevate for swelling Plan Gram Stain/Cx's pending Continue IV antibx expressed crystals and fluid out of drain hole from localized collection olecrenon bursa.keep npo at midnight and may need repeat incision and drainage tomorrow.
[2017-10-21] MEDS ORDERED: VANCOMYCIN TROUGH ONE (13:30)
[2017-10-21] MEDS: OXYCODONE HCL IR 5 MG TAB (IMMEDIATE RELEASE) PO PRN ×2 (13:43→20:44)
--- NOTE | 2017-10-21 14:32 | Progress Note ---
Subjective Date of Service: Oct 21, 2017. Subjective Pt evaluation today including: conversation w/ patient, physical exam, chart review, lab review, review of studies, review of inpatient medication list Resting in bed comfortably No concerns at this time Pain controlled Drain removed yesterday Problem List Medical Problems: (1) CAD (coronary artery disease) Status: Chronic (2) Hyperlipidemia, Unspecified Status: Chronic (3) Hypertension Status: Chronic (4) Left arm cellulitis Status: Acute (5) Prediabetes Status: Chronic (6) Septic olecranon bursitis of left elbow Status: Acute Review of Systems Constitutional: No fever, No chills, No sweats, No weight loss ENT: No hearing loss, No nasal symptoms, No sore throat Respiratory: No cough, No sputum, No wheezing, No shortness of breath Cardiac: No chest pain, No orthopnea, No PND, No edema Abdomen: No pain, No nausea, No vomiting, No diarrhea Musculoskeletal: No joint pain, No muscle pain, No swelling, No calf pain Male : No dysuria, No urinary frequency, No incontinence, No slowing stream Neurologic: No memory loss, No paralysis, No weakness, No numbness/tingling Psychiatric: No depression symptoms, No anhedonism, No anxiety, No insomnia Heme: No abnormal bleeding/bruising, No clotting problems Skin: No rash, No itch Objective Vital Signs Date Time Temp Pulse Resp B/P (MAP) Pulse Ox O2 Delivery O2 Flow Rate FiO2 10/21/17 09:00 Room Air 10/21/17 07:50 36.6 70 18 168/76 (106) 97 Room Air 10/20/17 23:49 Room Air 10/20/17 22:52 37.1 79 17 156/88 (110) 97 Room Air 10/20/17 15:30 Room Air 10/20/17 15:04 37.2 83 18 160/80 (106) 98 Room Air Physical Exam General Appearance: WD/WN, no apparent distress Eyes: normal inspection, PERRL, EOMI, sclerae normal Neck: supple, no adenopathy, thyroid normal, no JVD Respiratory/Chest: chest non-tender, lungs clear, normal breath sounds, no respiratory distress Cardiovascular: regular rate, rhythm, no edema, no gallop, no JVD Abdomen: normal bowel sounds, non tender, soft, no organomegaly Neurologic/Psychiatric: no motor/sensory deficits, alert, normal mood/affect, oriented x 3 Skin: normal color, warm/dry, no rash Lymphatic: no adenopathy Laboratory Results Last 24 Hours Test 10/21/17 05:21 10/21/17 13:14 White Blood Count 13.30 K/uL Red Blood Count 3.75 M/uL Hemoglobin 12.0 g/dL Hematocrit 35.3 % Mean Corpuscular Volume 94.1 fL Mean Corpuscular Hemoglobin 32.0 pg Mean Corpuscular Hemoglobin Concent 34.0 g/dl RDW Standard Deviation 45.8 fL RDW Coefficient of Variation 13.3 % Platelet Count 226 K/uL Mean Platelet Volume 11.1 fL Prothrombin Time 10.8 SECONDS Prothromb Time International Ratio 1.0 Creatinine 0.92 mg/dl Est Creatinine Clear Calc Drug Dose 91.8 ml/min Estimated GFR () 100.1 Estimated GFR (Non- 86.4 Vancomycin Level Trough 11.8 mcg/ml Assessment and Plan 67 y/o M CAD - recent NSTEMI, HTN, HPL. Developed some swelling of his L elbow 3-4 weeks prior. The area has become erythematous and tender over the past 2 days. He describes feeling generally ill since that time. He could not confirm fevers or rigors. Septic left olecranon bursitis - Improvement in redness with continuation of vanc and ceftriaxone. Initially - imaging and exam do not support joint involvement presently. Ortho consulted, debridement completed on 10/18. Cardiology consulted for clearance at this time as pt has severe multivessel CAD. Pt undergoing low risk surgery and is medically cleared for debridement. Awaiting final cx at this time (NGTD). Cont IV antibx. Appreciated ID recs CAD - no active CP - scheduled for f/u at [facility] 10/26 - instructed to pursue elective CABG, No chest pain, shortness of breath, METS 4 HTN - cont Losartan HPL - cont Lipitor Full code - Heparin prophylaxis
--- NOTE | 2017-10-21 14:48 | Pharmacy Progress Note ---
Pharmacy Abx Dose Short Note Date of Service Oct 21, 2017. Assessment & Plan Assessment 67 year old male receiving vancomycin and Rocephin for treatment of septic arthritis of left elbow. Day # 5/10 of antimicrobial therapy. Plan Vancomycin * Trough level of 11.8 mcg/mL is subtherapeutic, however, pt w/ BMI 34.5kg/m2. Cautious dosing as anticipate accumulation. * Change dose of 1250 mg IV every 12 hours to 1250mg IV q 10 hrs to cautiously shoot for higher trough. * Goal trough level for cellulitis : 15 to 20 mcg/mL * Trough will be reordered in a few days if vanc is continued. Pharmacy will continue to follow and will adjust dose/frequency as necessary. Thank you.
[2017-10-21 15:13] VITALS: BP 143/82; PULSE 77; TEMP 36.8; O2SAT 97
[2017-10-21] MEDS: CEFTRIAXONE SOD INJ 1 GM in DEXTROSE 5% ADD-VANTAGE 50ML 50 ML IV SCH (20:41)
[2017-10-21] MEDS: GABAPENTIN 300 MG CAP PO SCH (20:41)
[2017-10-21] MEDS: SENNA 8.6 MG TAB PO SCH (20:41)
[2017-10-21 22:55] VITALS: BP 153/91; PULSE 74; TEMP 36.9; O2SAT 99
[2017-10-22] VITALS (11 sets, daily range): BP systolic 112–164; BP diastolic 64–84; PULSE 75–100; TEMP 36.3–37; O2SAT 93–96
[2017-10-22 05:39] LABS: HEMATOCRIT 36.6 % (42-52); HEMOGLOBIN 12.4 g/dL (14.0-18.0); MEAN CELL VOLUME 94.6 fL (80-100); MEAN CORPUSCULAR HGB CONC 33.9 g/dl (32-36); MEAN PLATELET VOLUME 11.1 fL (7.4-10.4); PLATELET COUNT 234 K/uL (130-400); RED CELL DISTRIBUTION WIDTH CV 13.4 % (11.5-14.5); RED CELL DISTRIBUTION WIDTH SD 46.3 fL (36.4-46.3); WHITE BLOOD COUNT 11.91 K/uL (4.8-10.8)
[2017-10-22] MEDS: ACETAMINOPHEN 500 MG TAB PO SCH ×3 (05:50→21:24)
--- NOTE | 2017-10-22 06:53 | Orthopedic Progress Note ---
Orthopedic Progress Note Date of Service Oct 22, 2017. Subjective Post OP Day: 4 Reports: feeling well, pain controlled w PO medications, Denies: chest pain, SOB , nausea / vomiting, light headedness, calf pain Additional Notes: Patient states he has some soreness in his left elbow. He also states its difficult to move his fingers due to swelling in his hand. Objective calves soft nontender, N/V intact, capillary refill less than 2 sec., dressing C /D/I, A&O x3 Patient still has mild erythema around the incision site which is less than the margins that are marked. There was no drainage at the time of exam. pulses were compared bilateral and were equal. Moderate swelling of the fingers. Fingers are mobile with no numbness or tingling. Date Time Temp Pulse Resp B/P (MAP) Pulse Ox O2 Delivery O2 Flow Rate FiO2 10/21/17 23:27 Room Air 10/21/17 22:55 36.9 74 15 153/91 (111) 99 Room Air 10/21/17 15:20 Room Air 10/21/17 15:13 36.8 77 18 143/82 (102) 97 Room Air 10/21/17 09:00 Room Air 10/21/17 07:50 36.6 70 18 168/76 (106) 97 Room Air Laboratory Results 24 Hours: Test 10/22/17 05:08 Hematocrit 36.6 % Hemoglobin 12.4 g/dL Prothromb Time International Ratio 1.0 Prothrombin Time 10.7 SECONDS Assessment & Plan Assessment: Left Septic Olecranon Bursitis POD #4 s/p I&D dressing changed final cultures no growth to date, Abx per ID cont to ice/elevate for swelling Possible I&D today Plan: Gram Stain/Cx's show no growth Continue IV antibx expressed crystals and fluid out of drain hole from localized collection olecrenon bursa yesterday.kept npo at midnight as he may need repeat incision and drainage today. Inhouse Planning Pain Management: PO Tylenol, Oxy IR DVT Prophylaxis: TEDs, SCDs
--- NOTE | 2017-10-22 08:20 | Orthopedic Progress Note ---
Orthopedic Progress Note Date of Service Oct 22, 2017. Subjective Post OP Day: 3 Reports: feeling well, Denies: complaints Objective dressing removed. Erythema noted around the elbow. Wound appears benign. Able to do gentle ROM of the elbow with pain at the elbow itself. After ROM, padilla/white purulent material began to seep out of the drain site. No foul odor. Wound redressed. Date Time Temp Pulse Resp B/P (MAP) Pulse Ox O2 Delivery O2 Flow Rate FiO2 10/22/17 07:44 37.0 76 14 164/81 (108) 94 Room Air 10/22/17 07:15 Room Air 10/21/17 23:27 Room Air 10/21/17 22:55 36.9 74 15 153/91 (111) 99 Room Air 10/21/17 15:20 Room Air 10/21/17 15:13 36.8 77 18 143/82 (102) 97 Room Air 10/21/17 09:00 Room Air Laboratory Results 24 Hours: Test 10/22/17 05:08 Hematocrit 36.6 % Hemoglobin 12.4 g/dL Prothromb Time International Ratio 1.0 Prothrombin Time 10.7 SECONDS Assessment & Plan Assessment: Left Septic Olecranon Bursitis POD #4 s/p I&D dressing changed final cultures no growth to date, Abx per ID cont to ice/elevate for swelling * with continued purulent drainage, will plan for repeat I&D today with Dr Best* (with question of crystal like drainage noted by Dr Last, uric acid ordered and is wnl) Inhouse Planning Pain Management: PO Tylenol, Oxy IR DVT Prophylaxis: TEDs, SCDs
[2017-10-22] MEDS: FERROUS GLUCONATE 324 MG TAB PO SCH ×3 (08:30→17:40)
[2017-10-22] MEDS: DOCUSATE SODIUM 100 MG CAP PO SCH ×2 (09:00→20:24)
[2017-10-22] MEDS: LOSARTAN POTASSIUM 50 MG TAB PO SCH (09:00)
--- NOTE | 2017-10-22 10:11 | Progress Note ---
Subjective Date of Service: Oct 22, 2017. Subjective pt resting comfortably, dressing remains. afebrile. events noted, drainage noted from elbow, ? crystals noted. for repeat I&D later today. blood and OR cultures are negative. remains on broad spectrum abx. wbc improving, Problem List Medical Problems: (1) CAD (coronary artery disease) Status: Chronic (2) Hyperlipidemia, Unspecified Status: Chronic (3) Hypertension Status: Chronic (4) Left arm cellulitis Status: Acute (5) Prediabetes Status: Chronic (6) Septic olecranon bursitis of left elbow Status: Acute Objective Vital Signs Date Time Temp Pulse Resp B/P (MAP) Pulse Ox O2 Delivery O2 Flow Rate FiO2 10/22/17 08:23 94 Room Air 10/22/17 07:44 37.0 76 14 164/81 (108) 94 Room Air 10/22/17 07:15 Room Air 10/21/17 23:27 Room Air 10/21/17 22:55 36.9 74 15 153/91 (111) 99 Room Air 10/21/17 15:20 Room Air 10/21/17 15:13 36.8 77 18 143/82 (102) 97 Room Air Physical Exam General Appearance: WD/WN, no apparent distress Neck: supple Respiratory/Chest: normal breath sounds, no respiratory distress Cardiovascular: no edema Skin: normal color Comments: left elbow dressing c/d/i Laboratory Results Item Value Date Time Blood Culture - Preliminary Resulted 10/17/17 1823 Blood NO GROWTH TO DATE. Blood Culture - Preliminary Resulted 10/17/17 1833 Blood NO GROWTH TO DATE. Gram Stain - Final Resulted 10/18/17 1807 Drainage-Deep Elbow Last 24 Hours Test 10/21/17 13:14 10/22/17 05:08 10/22/17 06:08 Vancomycin Level Trough 11.8 mcg/ml White Blood Count 11.91 K/uL Red Blood Count 3.87 M/uL Hemoglobin 12.4 g/dL Hematocrit 36.6 % Mean Corpuscular Volume 94.6 fL Mean Corpuscular Hemoglobin 32.0 pg Mean Corpuscular Hemoglobin Concent 33.9 g/dl RDW Standard Deviation 46.3 fL RDW Coefficient of Variation 13.4 % Platelet Count 234 K/uL Mean Platelet Volume 11.1 fL Prothrombin Time 10.7 SECONDS Prothromb Time International Ratio 1.0 Uric Acid 5.9 mg/dl Assessment and Plan (1) Septic olecranon bursitis of left elbow Assessment & Plan: ? gout, especially with negative culture. will maintain abx for now as pt is to have additional debridement today. please send culture as well as crystal analysis for gout. if culture negative/+ crystals, will stop abx.
[2017-10-22] MEDS: VANCOMYCIN INJ 1,250 MG in SODIUM CHLORIDE 0.9% 250ML 250 ML IV SCH ×2 (10:31→20:21)
--- NOTE | 2017-10-22 11:24 | Hospitalist Progress Note ---
Hospitalist Progress Note Date of Service Oct 22, 2017. (Paola Blanchard ., DIANN) Subjective Pt evaluation today including: conversation w/ patient, conversation w/ family , physical exam, lab review, conversation w/ corporate consultant Voiding: no voiding problems Patient resting in bed. L arm in MUNIR bandage and on ice pack. Pain is currently well controlled. NPO for I&D later today. Patient denies any fever, chills, sweats, lightheadedness, dizziness, vision changes, CP, palpitations, edema, SOB, wheezing, cough, abdominal pain, nausea, vomiting, diarrhea, urinary symptoms, melena, numbness/tingling, weakness, anxiety/depression, active bleeding, or new skin discoloration/changes. (Paola Blanchard ., RAMONEC) Medications Current Inpatient Medications Medications (Trade) Dose Ordered Sig/Christal Route Start Time Stop Time Status Last Admin Dose Admin Aspirin (Ecotrin Tab) 81 mg QAM PO 10/18/17 09:00 11/17/17 08:59 10/21/17 09:07 81 MG Atorvastatin Calcium (Lipitor Tab) 80 mg DAILY PO 10/18/17 09:00 11/17/17 08:59 10/21/17 09:07 80 MG Gabapentin (Neurontin Cap) 300 mg HS PO 10/18/17 21:00 11/17/17 20:59 10/21/17 20:41 300 MG Losartan Potassium (coZAAR TAB) 50 mg DAILY PO 10/18/17 09:00 11/17/17 08:59 10/21/17 09:08 50 MG Magnesium Hydroxide (Milk Of Magnesia Susp) 30 ml Q6H PRN PO 10/17/17 22:15 11/16/17 22:14 10/20/17 23:55 30 ML Polyethylene (Miralax Powder Packet) 17 gm DAILY PRN PO 10/17/17 22:15 11/16/17 22:14 10/19/17 15:48 17 GM Zolpidem Tartrate (Ambien Tab) 5 mg HSZ PRN PO 10/17/17 22:15 11/16/17 22:14 Ondansetron HCl (Zofran Inj) 4 mg Q6H PRN IV 10/17/17 22:15 11/16/17 22:14 Tramadol HCl (Ultram Tab) 50 mg Q4H PRN PO 10/17/17 22:30 11/16/17 22:29 10/20/17 20:29 50 MG Ceftriaxone Sodium 1 gm/ Dextrose 50 ml @ 100 mls/hr Q24H IV 10/18/17 20:00 10/27/17 19:59 10/21/17 20:41 100 MLS/HR Vancomycin HCl (Consult) 1 ea UD PRN N/A 10/18/17 03:00 11/17/17 02:59 Oxycodone HCl (Roxicodone Immediate Rel Tab) 1-2 TABS FOR PAIN 1 TABLET ... Q4H PRN PO 10/18/17 18:45 11/01/17 18:44 10/21/17 20:44 5 MG Acetaminophen (Tylenol Tab) 1,000 mg Q8 PO 10/18/17 22:00 11/17/17 21:59 10/21/17 22:08 1,000 MG Bisacodyl (Dulcolax Supp) 10 mg DAILY PRN DC 10/18/17 18:45 11/17/17 18:44 Sodium Biphosphate/ Sodium Phosphate (Fleet Enema) 132 ml DAILY PRN DC 10/18/17 18:45 11/17/17 18:44 Senna (Senokot Tab) 17.2 mg HS PO 10/18/17 21:00 11/17/17 20:59 10/21/17 20:41 17.2 MG Docusate Sodium (coLACE CAP) 100 mg BID PO 10/18/17 21:00 11/17/17 20:59 10/21/17 20:42 100 MG Diphenhydramine HCl (Benadryl Cap) 25 mg Q8H PRN PO 10/18/17 18:45 11/17/17 18:44 Al Hydrox/Mg Hydrox/Simethicone (Maalox Max Susp) 15 ml Q4H PRN PO 10/18/17 18:45 11/17/17 18:44 Multivitamins (Multivitamin Tab) 1 tab QAM PO 10/19/17 09:00 11/18/17 08:59 10/21/17 09:08 1 TAB Ferrous Gluconate (Ferrous Gluconate Tab) 324 mg TIDM PO 10/19/17 08:30 11/18/17 08:29 1/7/18 18:05 324 MG Vancomycin HCl 1250 mg/Sodium Chloride 275 ml @ 125 mls/hr Q10H IV 10/22/17 00:00 10/27/17 00:00 10/22/17 10:31 125 MLS/HR (Paola Blanchard, CED-C) Objective Vital Signs Date Time Temp Pulse Resp B/P (MAP) Pulse Ox O2 Delivery O2 Flow Rate FiO2 10/22/17 08:23 94 Room Air 10/22/17 07:44 37.0 76 14 164/81 (108) 94 Room Air 10/22/17 07:15 Room Air 10/21/17 23:27 Room Air 10/21/17 22:55 36.9 74 15 153/91 (111) 99 Room Air 10/21/17 15:20 Room Air 10/21/17 15:13 36.8 77 18 143/82 (102) 97 Room Air (Paola Blanchard, CED-C) Physical Exam General Appearance: no apparent distress, + obese Eyes: normal inspection, PERRL ENT: hearing grossly normal Neck: supple Respiratory/Chest: lungs clear, no respiratory distress, no accessory muscle use Cardiovascular: regular rate, rhythm Abdomen: normal bowel sounds, non tender, soft Extremities: no pedal edema, no calf tenderness, + pertinent finding (L arm in MUNIR wrap ) Neurologic/Psychiatric: alert, normal mood/affect, oriented x 3 Skin: normal color, warm/dry, no rash (Paola Blanchard, CED-C) Laboratory Results Last 24 Hours Test 10/21/17 13:14 10/22/17 05:08 10/22/17 06:08 Vancomycin Level Trough 11.8 mcg/ml White Blood Count 11.91 K/uL Red Blood Count 3.87 M/uL Hemoglobin 12.4 g/dL Hematocrit 36.6 % Mean Corpuscular Volume 94.6 fL Mean Corpuscular Hemoglobin 32.0 pg Mean Corpuscular Hemoglobin Concent 33.9 g/dl RDW Standard Deviation 46.3 fL RDW Coefficient of Variation 13.4 % Platelet Count 234 K/uL Mean Platelet Volume 11.1 fL Prothrombin Time 10.7 SECONDS Prothromb Time International Ratio 1.0 Uric Acid 5.9 mg/dl (Paola Blanchard PA-C) Assessment and Plan 67 y/o M CAD - recent NSTEMI, HTN, HPL. Developed some swelling of his L elbow 3-4 weeks prior. The area has become erythematous and tender over the past 2 days. He describes feeling generally ill since that time. He could not confirm fevers or rigors. Septic L olecranon bursitis s/p I&D on 10/[address] Samuels: - Admitted to med/surg - ID following- continue IV Vancomycin + Rocephin - BCx- NGTD - I&D culture from 10/17- NG -- Repeat I&D today w/ repeat cultures w/ crystals- if negative culture and + crystals, ID to stop antibiotics - ?Gout- uric acid WNL, crystal analysis pending - Tylenol PO, Roxicodone PO, Tramadol PO PRN for pain management - Follow CBC -- Leukocytosis- IMPROVING -- H&H- STABLE - Orthopedics following- planning for repeat I&D today Multivessel CAD w/ NSTEMI in 09/2017, HTN, HLD- STABLE: - Continue Losartan 50 mg daily, Lipitor 80 mg daily, ASA daily - Scheduled for f/u at [facility] 10/26 for possible CABG - Cardiology consulted for surgical clearance Neuropathy: Continue Gabapentin 300 mg HS DVT prophylaxis: Chemical anticoagulation held due to upcoming I&D today Code Status: LEVEL I, FULL Dispo: Discharge to home once medically stable (Paola Blanchard, RAMONEC) Reviewed: Pt Seen/Exam by Me (Ayanna Harrison MD) History Physician House Director Supervision Note: I interviewed and examined the patient. Discussed with CED Blanchard and agree with findings and plan as documented in the note. Any exceptions or clarifications are listed here: Pt eating dinner, now s/p repeat I&D with debridement of left olecranon bursa with tophaceous material removed. Pt has no complaints. No CP, no SOB. Pain controlled. Review of previous admission revealed very low thiamine level (was pending at time of discharge)-discussed result with pt. He also tells me he thought his elbow had gout from the beginning as he has had gout in the past in his toes. Vitals reviewed NAD, sitting on side of bed eating dinner, AAOx3 RRR no mgr CTAB no wcr Abd +BS soft Ext: LUE with large dressing and MUINR wrap in place, drain coming from elbow with small amount bloody drainage, fingers on left N/V/I; no edema in legs 67 yo male with a h/o CAD, HTN, HL, peripheral neuropathy, thiamine deficiency, here with left olecranon bursitis-septic vs inflammatory/gout -await path review of bursa tissue as too much tissue to perform fluid analysis- looking for uric acid crystals -if +gout, dc abx and start prednisone 20mg daily x 5-7 days -CAD-stable, no acute issues, continue ASA, losartan, statin. Review of previous admission shows not on beta clarence due to bradycardia. He has not had bradycardia here, so could probably add on low dose metoprolol possibly tomorrow given surgery today. Has eval for CABG coming up soon -Thiamine deficiency-B1 level severely low at <7, performed for peripheral neuropathy--> start thiamine 100mg po daily Documented By: Ayanna Harrison (Ayanna Harrison MD)
[2017-10-22] MEDS ORDERED: BACITRACIN 50000 UNIT VIAL ONE (11:32)
[2017-10-22] MEDS ORDERED: MIDAZOLAM HCL 1 MG/ML 2ML VIAL ONE (11:55)
[2017-10-22] MEDS ORDERED: DEXAMETHASONE SOD INJ 4 MG/ML VIAL ONE (11:55)
[2017-10-22] MEDS ORDERED: LIDOCAINE HCL 2% 2 ML VIAL (20MG/ML) ONE (11:55)
[2017-10-22] MEDS ORDERED: FENTANYL CITRATE INJ 50 MCG/1 ML 2 ML VIAL ONE ×2 (11:55→13:55)
[2017-10-22] MEDS ORDERED: PROPOFOL IV EMULSION 10 MG/ML 20 ML VIAL IV ONE (11:55)
[2017-10-22] MEDS ORDERED: ONDANSETRON INJ 2 MG/ML 2 ML VIAL ONE (11:55)
[2017-10-22] MEDS ORDERED: FENTANYL CITRATE INJ 50 MCG/1 ML 2 ML VIAL IV PRN (12:00)
[2017-10-22] MEDS ORDERED: ATROPINE SULFATE 0.1 MG/ML 5ML SYR IV PRN (12:00)
[2017-10-22] MEDS ORDERED: ONDANSETRON INJ 2 MG/ML 2 ML VIAL IV PRN ×2 (12:00→14:00)
[2017-10-22] MEDS ORDERED: EpHEDrine SULFATE INJ 50 MG/ML AMP IV PRN (12:00)
[2017-10-22] MEDS ORDERED: BUPIVACAINE/EPINEPHRINE 0.25% 1:200,000 30 ML VIAL ONE (13:17)
--- NOTE | 2017-10-22 14:27 | Anesthesiology Progress Note ---
Anesthesia Post Op Note Date & Time Oct 22, 2017 at 14:27 Vital Signs Pain Intensity: 4 Vital Signs Past 12 Hours Date Time Temp Pulse Resp B/P (MAP) Pulse Ox O2 Delivery O2 Flow Rate FiO2 10/22/17 14:18 37.0 79 16 139/81 (106) 97 Nasal Cannula 2 10/22/17 14:07 72 17 10/22/17 14:07 72 17 95 10/22/17 14:06 145/77 10/22/17 14:02 72 13 97 10/22/17 14:02 73 13 10/22/17 14:01 150/90 10/22/17 13:57 74 16 100 10/22/17 13:57 73 16 10/22/17 13:56 141/88 10/22/17 13:52 76 19 99 10/22/17 13:52 76 19 10/22/17 13:51 129/84 10/22/17 13:48 143/66 10/22/17 13:47 77 23 96 10/22/17 13:47 79 23 10/22/17 13:47 36.4 74 16 143/66 (102) 99 Oxymask 10 10/22/17 08:23 94 Room Air 10/22/17 07:44 37.0 76 14 164/81 (108) 94 Room Air 10/22/17 07:15 Room Air Notes Mental Status: alert / awake / arousable, participated in evaluation Pt Amnestic to Procedure: Yes Nausea / Vomiting: adequately controlled Pain: adequately controlled Airway Patency, RR, SpO2: stable & adequate BP & HR: stable & adequate Hydration State: stable & adequate Anesthetic Complications: no major complications apparent
--- NOTE | 2017-10-22 14:40 | [facility] Operative Report ---
Operative Report Operative Date Oct 22, 2017. Pre-Operative Diagnosis Left Septic Olecranon Bursitis Post-Operative Diagnosis Left Septic Olecranon Bursitis Procedure(s) Performed Incision and Drainage of Olecranon Bursa Surgeon Dr. Best Physician Representative Surgeon(s) none Estimated Blood Loss 25 ml Findings see dictated op note Specimens microbiology 1. Left Olecranon Bursa Fluid for Crystals 2. Left Olecranon Bursa Fluid 3. Left Olecranon Bursa Tissue Drains one VIMAL drain Anesthesia Gen. Complication(s) None Disposition Recovery Room / PACU Indications The patient is a 67-year-old male that had about a month's history of noninfectious olecranon bursitis. Prior to admission he has been having increasing erythema and swelling over the left olecranon bursa. He was previously taken to the operating room for irrigation and debridement of left olecranon bursitis on 10/19/[address] Samuels. At today's dressing change the patient did express white tophaceous material from the drain site. He still had a degree of erythema and swelling overlying the olecranon and the decision was made to return to the operating room for repeat I&D left olecranon bursa. The risks and benefits of the procedure were explained to the patient and include but not limited to infection, DVT, injury to surrounding nerves and vessels soft tissue bone, need for additional surgery, stiffness, chronic pain and . The patient was agreeable to the planned procedure and consent was provided at this time. Description of Procedure The patient was identified. Laterality was confirmed and marked. The patient has been on IV antibiotics since being admitted. The patient was transferred to the operating room and placed in supine position and induced into general endotracheal anesthesia per the anesthesia staff. A soft bump was placed under the left upper torso, nylon sutures removed and the limb was prepped and draped in the usual standard manner with Betadine. I then made a longitudinal incision over the olecranon bursa in line with the previous incision. The incision was extended proximally and distally to incorporate the previous drain site. We then encountered white tophaceous material and this material was sent for culture, GS, cell count and crystals. We then performed a sharp debridement down to level of bone debriding all of the material from the olecranon bursa and skin edges till there was only healthy appearing bleeding tissue. There was a fair amount of chronic inflammatory chalky type material within the olecranon bursa that was debrided. The wound was then thoroughly irrigated with 6L of bacitracin normal saline. Subcutaneous tissues were injected with 20cc of .25% marcaine. A VIMAL drain was then placed through a stab incision exciting proximally to the incision. The wound was closed with horizontal mattress 3-0 nylon suture. A sterile dressing of Adaptic, 4 x 4's, Kerlix and Darvin wrap was applied. All needle and sponge counts were correct at the end of the procedure. The patient was transferred to the PACU in stable condition without apparent complication. He tolerated the procedure well. I attest to the content of the Intraoperative Record and any orders documented therein. Any exceptions are noted below.
[2017-10-22] MEDS: ASPIRIN 81 MG ECTAB PO SCH (16:20)
[2017-10-22] MEDS: MULTIVITAMIN TAB PO SCH (16:20)
[2017-10-22] MEDS: ATORVASTATIN 40 MG TAB PO SCH (16:21)
--- NOTE | 2017-10-22 16:21 | Progress Note ---
Progress Note Date of Service Oct 22, 2017. Progress Note Postoperative progress note The patient was seen at bedside, comfortable, no acute issues, pain well controlled. Physical exam No apparent distress Left upper extremity neurovascular sensory intact, positive median, radial, ulnar, AIN, PIN space sensory intact light touch grossly. Compartments soft nontender, dressings clean dry and intact. Hemovac drain intact. Assessment and plan Left olecranon bursitis, septic versus gout. Status post irrigation and debridement -maintain HMV drain -IV abx per medical team -Follow up intra operative labs/microbiology -Pain controlled -NWB LUE -Ice/elevate
[2017-10-22] MEDS ORDERED: ACETAMINOPHEN 500 MG TAB PO PRN (17:30)
[2017-10-22] MEDS ORDERED: NITROGLYCERIN 0.4 MG SL PER TAB CHARGE UT PRN (17:30)
[2017-10-22] MEDS ORDERED: THIAMINE HCL 100 MG TAB PO ONE (18:00)
[2017-10-22] MEDS: POTASSIUM CHLORIDE INJ 10 MEQ in SODIUM CHLORIDE 0.9% 1000ML 1,000 ML IV SCH (19:11)
[2017-10-22] MEDS: CEFTRIAXONE SOD INJ 1 GM in DEXTROSE 5% ADD-VANTAGE 50ML 50 ML IV SCH (19:11)
[2017-10-22] MEDS: GABAPENTIN 300 MG CAP PO SCH (20:24)
[2017-10-22] MEDS: SENNA 8.6 MG TAB PO SCH (20:24)
[2017-10-23 03:30] VITALS: BP 131/70; PULSE 67; TEMP 36.6; O2SAT 97
[2017-10-23] MEDS ORDERED: VANCOMYCIN TROUGH SCH (05:30)
[2017-10-23] MEDS: POTASSIUM CHLORIDE INJ 10 MEQ in SODIUM CHLORIDE 0.9% 1000ML 1,000 ML IV SCH (05:35)
[2017-10-23] MEDS: ACETAMINOPHEN 500 MG TAB PO SCH ×2 (05:36→15:09)
[2017-10-23] MEDS: VANCOMYCIN INJ 1,250 MG in SODIUM CHLORIDE 0.9% 250ML 250 ML IV SCH (05:36)
[2017-10-23 05:59] LABS: HEMATOCRIT 34.1 % (42-52); HEMOGLOBIN 11.7 g/dL (14.0-18.0); MEAN CELL VOLUME 92.9 fL (80-100); MEAN CORPUSCULAR HEMOGLOBIN 31.9 pg (25-34); MEAN CORPUSCULAR HGB CONC 34.3 g/dl (32-36); MEAN PLATELET VOLUME 10.8 fL (7.4-10.4); PLATELET COUNT 268 K/uL (130-400); RED CELL DISTRIBUTION WIDTH CV 12.8 % (11.5-14.5); RED CELL DISTRIBUTION WIDTH SD 43.3 fL (36.4-46.3); WHITE BLOOD COUNT 14.39 K/uL (4.8-10.8)
[2017-10-23 06:11] LABS: INR 1.1 (0.9-1.1)
[2017-10-23 06:36] LABS: CALCIUM 8.9 mg/dl (8.5-10.1); CREATININE 1.09 mg/dl (0.60-1.40); POTASSIUM 4.3 mmol/L (3.5-5.1)
[2017-10-23 07:10] VITALS: BP 138/81; PULSE 60; TEMP 36.5; O2SAT 97
--- NOTE | 2017-10-23 07:49 | Orthopedic Progress Note ---
Orthopedic Progress Note Date of Service Oct 23, 2017. Subjective Post OP Day: 1 Reports: feeling well, pain controlled w PO medications, Denies: complaints, chest pain, SOB, nausea / vomiting, light headedness, calf pain Additional Notes: Patient seen sitting in bed, comfortable, pain well controlled, no acute issues overnight Objective No apparent distress Left upper extremity neurovascular sensory intact, positive median, radial, ulnar, AIN, PIN space sensory intact light touch grossly. Compartments soft nontender, dressings clean dry and intact. Hemovac drain intact. Date Time Temp Pulse Resp B/P (MAP) Pulse Ox O2 Delivery O2 Flow Rate FiO2 10/23/17 07:10 36.5 60 16 138/81 (100) 97 Room Air 10/23/17 03:30 36.6 67 16 131/70 (90) 97 Room Air 10/22/17 23:37 Room Air 10/22/17 22:50 36.9 80 18 149/67 (94) 96 Room Air 10/22/17 19:15 36.9 85 16 112/70 (84) 93 Room Air 10/22/17 19:00 Room Air 10/22/17 17:50 36.7 94 18 145/81 (102) 93 Room Air 10/22/17 16:40 37.0 78 18 140/64 (89) 94 Room Air 10/22/17 15:42 36.9 75 18 131/77 (95) 94 Room Air 10/22/17 15:20 96 Nasal Cannula 2.0 10/22/17 15:13 36.9 76 16 137/80 (99) 96 Nasal Cannula 2.0 10/22/17 14:45 36.3 75 16 139/78 (98) 94 Nasal Cannula 2.0 10/22/17 14:40 37.0 10/22/17 14:18 37.0 79 16 139/81 (106) 97 Nasal Cannula 2 10/22/17 14:07 72 17 10/22/17 14:07 72 17 95 10/22/17 14:06 145/77 10/22/17 14:02 72 13 97 10/22/17 14:02 73 13 10/22/17 14:01 150/90 10/22/17 13:57 74 16 100 10/22/17 13:57 73 16 10/22/17 13:56 141/88 10/22/17 13:52 76 19 99 10/22/17 13:52 76 19 10/22/17 13:51 129/84 10/22/17 13:48 143/66 10/22/17 13:47 77 23 96 10/22/17 13:47 79 23 10/22/17 13:47 36.4 74 16 143/66 (102) 99 Oxymask 10 10/22/17 08:23 94 Room Air Laboratory Results 24 Hours: Test 10/23/17 05:28 Hematocrit 34.1 % Hemoglobin 11.7 g/dL Prothromb Time International Ratio 1.1 Prothrombin Time 11.2 SECONDS Assessment & Plan Assessment: Left Septic Olecranon Bursitis, gout vs septic bursa Plan: POD #1 s/p I&D, pod#5 s/p I+D -Montior drain, DC if low OP -Change dressing POD#2 --follow up intraoperative cultures -cont to ice/elevate for swelling --IV abx per medical team -Pain control -NWB LUE - PT/OT gentle ROM exercises Inhouse Planning Pain Management: PO Tylenol, Oxy IR DVT Prophylaxis: TEDs, SCDs
--- NOTE | 2017-10-23 08:17 | Anesthesiology Progress Note ---
Anesthesia Post Op Note Date & Time Oct 23, 2017 at 08:16 Vital Signs Pain Intensity: 0.0 Vital Signs Past 12 Hours Date Time Temp Pulse Resp B/P (MAP) Pulse Ox O2 Delivery O2 Flow Rate FiO2 10/23/17 08:02 Room Air 10/23/17 07:10 36.5 60 16 138/81 (100) 97 Room Air 10/23/17 03:30 36.6 67 16 131/70 (90) 97 Room Air 10/22/17 23:37 Room Air 10/22/17 22:50 36.9 80 18 149/67 (94) 96 Room Air Notes Mental Status: alert / awake / arousable, participated in evaluation Pt Amnestic to Procedure: Yes Nausea / Vomiting: adequately controlled Pain: adequately controlled Airway Patency, RR, SpO2: stable & adequate BP & HR: stable & adequate Hydration State: stable & adequate Anesthetic Complications: no major complications apparent
[2017-10-23] MEDS ORDERED: MULTIVITAMIN TAB PO SCH (09:00)
[2017-10-23] MEDS ORDERED: THIAMINE HCL 100 MG TAB PO SCH (09:00)
[2017-10-23] MEDS ORDERED: PANTOprazole SOD 40 MG TAB PO SCH (09:00)
[2017-10-23] MEDS: DOCUSATE SODIUM 100 MG CAP PO SCH (09:30)
[2017-10-23] MEDS: FERROUS GLUCONATE 324 MG TAB PO SCH ×2 (09:31→13:31)
[2017-10-23] MEDS: LOSARTAN POTASSIUM 50 MG TAB PO SCH (09:31)
--- NOTE | 2017-10-23 09:41 | Pharmacy Progress Note ---
Pharmacy Abx Dose Short Note Date of Service Oct 23, 2017. Assessment & Plan Assessment 67 year old male receiving VANCOMYCIN/ROCEPHIN IV for treatment of septic bursitis vs gout. Day # 7/10 of antimicrobial therapy. Plan Vancomycin * Trough level of 17.1 mcg/mL is therapeutic. * Continue dose of 1250 mg IV every 10 hours. * Goal trough level for septic bursitis: ~15 mcg/mL * Repeat trough will not be ordered as this is day #7 of therapy. If renal function changes or antibiotics extended - recommend recheck. * Pt was at risk for drug accumulation due to BMI which has not been seen at this point. Pharmacy will continue to follow and will adjust dose/frequency as necessary. Thank you.
--- NOTE | 2017-10-23 10:29 | Hospitalist Progress Note ---
Hospitalist Progress Note Date of Service Oct 23, 2017. (Paola Blanchard ., DIANN) Subjective Pt evaluation today including: conversation w/ patient, physical exam, lab review, review of inpatient medication list Voiding: no voiding problems Patient sitting in bedside chair. Pain is well controlled. Eating and drinking OK. Patient denies any fever, chills, sweats, lightheadedness, dizziness, vision changes, CP, palpitations, edema, SOB, wheezing, cough, abdominal pain, nausea, vomiting, diarrhea, urinary symptoms, melena, numbness/tingling, weakness, anxiety/depression, active bleeding, or new skin discoloration/changes. (Paola Blanchard ., RAMONEC) Medications Current Inpatient Medications Medications (Trade) Dose Ordered Sig/Christal Route Start Time Stop Time Status Last Admin Dose Admin Aspirin (Ecotrin Tab) 81 mg QAM PO 10/18/17 09:00 11/17/17 08:59 10/22/17 16:20 81 MG Atorvastatin Calcium (Lipitor Tab) 80 mg DAILY PO 10/18/17 09:00 11/17/17 08:59 10/22/17 16:21 80 MG Gabapentin (Neurontin Cap) 300 mg HS PO 10/18/17 21:00 11/17/17 20:59 10/22/17 20:24 300 MG Losartan Potassium (coZAAR TAB) 50 mg DAILY PO 10/18/17 09:00 11/17/17 08:59 10/23/17 09:31 50 MG Magnesium Hydroxide (Milk Of Magnesia Susp) 30 ml Q6H PRN PO 10/17/17 22:15 11/16/17 22:14 10/20/17 23:55 30 ML Polyethylene (Miralax Powder Packet) 17 gm DAILY PRN PO 10/17/17 22:15 11/16/17 22:14 10/19/17 15:48 17 GM Zolpidem Tartrate (Ambien Tab) 5 mg HSZ PRN PO 10/17/17 22:15 11/16/17 22:14 Tramadol HCl (Ultram Tab) 50 mg Q4H PRN PO 10/17/17 22:30 11/16/17 22:29 10/20/17 20:29 50 MG Ceftriaxone Sodium 1 gm/ Dextrose 50 ml @ 100 mls/hr Q24H IV 10/18/17 20:00 10/27/17 19:59 10/22/17 19:11 100 MLS/HR Vancomycin HCl (Consult) 1 ea UD PRN N/A 10/18/17 03:00 11/17/17 02:59 Oxycodone HCl (Roxicodone Immediate Rel Tab) 1-2 TABS FOR PAIN 1 TABLET ... Q4H PRN PO 10/18/17 18:45 11/01/17 18:44 10/21/17 20:44 5 MG Acetaminophen (Tylenol Tab) 1,000 mg Q8 PO 10/18/17 22:00 11/17/17 21:59 10/23/17 05:36 1,000 MG Bisacodyl (Dulcolax Supp) 10 mg DAILY PRN LA 10/18/17 18:45 11/17/17 18:44 Sodium Biphosphate/ Sodium Phosphate (Fleet Enema) 132 ml DAILY PRN LA 10/18/17 18:45 11/17/17 18:44 Senna (Senokot Tab) 17.2 mg HS PO 10/18/17 21:00 11/17/17 20:59 10/22/17 20:24 17.2 MG Docusate Sodium (coLACE CAP) 100 mg BID PO 10/18/17 21:00 11/17/17 20:59 10/23/17 09:30 100 MG Diphenhydramine HCl (Benadryl Cap) 25 mg Q8H PRN PO 10/18/17 18:45 11/17/17 18:44 Al Hydrox/Mg Hydrox/Simethicone (Maalox Max Susp) 15 ml Q4H PRN PO 10/18/17 18:45 11/17/17 18:44 Multivitamins (Multivitamin Tab) 1 tab QAM PO 10/19/17 09:00 11/18/17 08:59 10/22/17 16:20 1 TAB Ferrous Gluconate (Ferrous Gluconate Tab) 324 mg TIDM PO 10/19/17 08:30 11/18/17 08:29 10/23/17 09:31 324 MG Vancomycin HCl 1250 mg/Sodium Chloride 275 ml @ 125 mls/hr Q10H IV 10/22/17 00:00 10/27/17 00:00 10/23/17 05:36 125 MLS/HR Potassium Chloride 10 meq/ Sodium Chloride 1,005 ml @ 100 mls/hr Q10H3M IV 10/22/17 15:00 11/21/17 14:59 10/23/17 05:35 100 MLS/HR Ondansetron HCl (Zofran Inj) 4 mg Q6H PRN IV 10/22/17 14:00 11/21/17 13:59 Pantoprazole Sodium (Protonix Tab) 40 mg QAM PO 10/23/17 09:00 10/26/17 09:01 10/23/17 09:31 40 MG Acetaminophen (Tylenol Tab) 1,000 mg Q6H PRN PO 10/22/17 17:30 11/21/17 17:29 Future Hold Nitroglycerin (Nitrostat Tab) 0.4 mg UD PRN UT 10/22/17 17:30 11/21/17 17:29 Thiamine HCl (Vitamin B-1 Tab) 100 mg QAM PO 10/23/17 09:00 11/22/17 08:59 10/23/17 09:31 100 MG (Paola Blanchard, DIANN) Objective Vital Signs Date Time Temp Pulse Resp B/P (MAP) Pulse Ox O2 Delivery O2 Flow Rate FiO2 10/23/17 08:02 Room Air 10/23/17 07:10 36.5 60 16 138/81 (100) 97 Room Air 10/23/17 03:30 36.6 67 16 131/70 (90) 97 Room Air 10/22/17 23:37 Room Air 10/22/17 22:50 36.9 80 18 149/67 (94) 96 Room Air 10/22/17 19:15 36.9 85 16 112/70 (84) 93 Room Air 10/22/17 19:00 Room Air 10/22/17 17:50 36.7 94 18 145/81 (102) 93 Room Air 10/22/17 16:40 37.0 78 18 140/64 (89) 94 Room Air 10/22/17 15:42 36.9 75 18 131/77 (95) 94 Room Air 10/22/17 15:20 96 Nasal Cannula 2.0 10/22/17 15:13 36.9 76 16 137/80 (99) 96 Nasal Cannula 2.0 10/22/17 14:45 36.3 75 16 139/78 (98) 94 Nasal Cannula 2.0 10/22/17 14:40 37.0 10/22/17 14:18 37.0 79 16 139/81 (106) 97 Nasal Cannula 2 10/22/17 14:07 72 17 10/22/17 14:07 72 17 95 10/22/17 14:06 145/77 10/22/17 14:02 72 13 97 10/22/17 14:02 73 13 10/22/17 14:01 150/90 10/22/17 13:57 74 16 100 10/22/17 13:57 73 16 10/22/17 13:56 141/88 10/22/17 13:52 76 19 99 10/22/17 13:52 76 19 10/22/17 13:51 129/84 10/22/17 13:48 143/66 10/22/17 13:47 77 23 96 10/22/17 13:47 79 23 10/22/17 13:47 36.4 74 16 143/66 (102) 99 Oxymask 10 (Paola Blanchard, PA-C) Physical Exam General Appearance: no apparent distress, + obese Eyes: normal inspection, PERRL ENT: hearing grossly normal Neck: supple Respiratory/Chest: lungs clear, no respiratory distress, no accessory muscle use Cardiovascular: regular rate, rhythm Abdomen: normal bowel sounds, non tender, soft Extremities: no pedal edema, no calf tenderness, + pertinent finding (L arm in MUNIR wrap; hemovac w/ serosanguinous output ) Neurologic/Psychiatric: alert, normal mood/affect, oriented x 3 Skin: normal color, warm/dry, no rash (Paola Blanchard, PA-C) Laboratory Results Last 24 Hours Test 10/23/17 05:28 White Blood Count 14.39 K/uL Red Blood Count 3.67 M/uL Hemoglobin 11.7 g/dL Hematocrit 34.1 % Mean Corpuscular Volume 92.9 fL Mean Corpuscular Hemoglobin 31.9 pg Mean Corpuscular Hemoglobin Concent 34.3 g/dl RDW Standard Deviation 43.3 fL RDW Coefficient of Variation 12.8 % Platelet Count 268 K/uL Mean Platelet Volume 10.8 fL Prothrombin Time 11.2 SECONDS Prothromb Time International Ratio 1.1 Sodium Level 135 mmol/L Potassium Level 4.3 mmol/L Chloride Level 103 mmol/L Carbon Dioxide Level 27 mmol/L Anion Gap 5.0 mmol/L Blood Urea Nitrogen 22 mg/dl Creatinine 1.09 mg/dl Est Creatinine Clear Calc Drug Dose 77.5 ml/min Estimated GFR () 81.5 Estimated GFR (Non- 70.4 BUN/Creatinine Ratio 20.3 Random Glucose 159 mg/dl Calcium Level 8.9 mg/dl Vancomycin Level Trough 17.1 mcg/ml (Paola Blanchard, DIANN) Assessment and Plan 67 y/o M CAD - recent NSTEMI, HTN, HPL. Developed some swelling of his L elbow 3-4 weeks prior. The area has become erythematous and tender over the past 2 days. He describes feeling generally ill since that time. He could not confirm fevers or rigors. Septic vs gout L olecranon bursitis s/p I&D on 10/18 and 10/[address] Samuels and Dr. Best: - Admitted to med/surg - ID following- IV Vancomycin + Rocephin pending repeat cultures - BCx- NGTD - I&D culture from 10/17- NG; repeat cultures on 10/22 pending - ?Gout- uric acid WNL, crystal analysis pending, tophaceous material at drain site- start Prednisone 20 mg daily (started on 10/23) - Tylenol PO, Roxicodone PO, Tramadol PO PRN for pain management - On IVF postop 10/22- eating and drinking OK, will d/c fluids - Follow CBC -- Leukocytosis increased to 14 today- likely postop response- follow CBC -- H&H- STABLE - Orthopedics following Multivessel CAD w/ NSTEMI in 09/2017, HTN, HLD- STABLE: - Continue Losartan 50 mg daily, Lipitor 80 mg daily, ASA daily - Scheduled for f/u at [facility] 10/26 for possible CABG - Cardiology consulted for surgical clearance- currently not on BB due to h/o bradycardia, do not recommend starting at this time Neuropathy: Continue Gabapentin 300 mg HS Thiamine deficiency: Thiamine 100 mg daily GI prophylaxis: Protonix DVT prophylaxis: Chemical anticoagulation held due surgical procedures Code Status: LEVEL I, FULL Dispo: Discharge to home once medically stable- likely within the next 1-2 days (Paola Blanchard, DIANN) History See discharge summary on same DOS (Ayanna Harrison MD)
[2017-10-23] MEDS: MULTIVITAMIN TAB PO SCH (10:48)
[2017-10-23] MEDS: ASPIRIN 81 MG ECTAB PO SCH (10:49)
[2017-10-23] MEDS: ATORVASTATIN 40 MG TAB PO SCH (10:49)
--- NOTE | 2017-10-23 14:54 | Progress Note ---
Subjective Date of Service: Oct 23, 2017. Subjective s/p I&D, white chalky material noted, cyrstal analysis cancelled, pathology pending. all micro negative to date. fungal smear yesterday negative as well. wbc slightly increased today, likely post op. also started on steroids for suspected gout. Problem List Medical Problems: (1) CAD (coronary artery disease) Status: Chronic (2) Hyperlipidemia, Unspecified Status: Chronic (3) Hypertension Status: Chronic (4) Left arm cellulitis Status: Acute (5) Prediabetes Status: Chronic (6) Septic olecranon bursitis of left elbow Status: Acute Objective Vital Signs Date Time Temp Pulse Resp B/P (MAP) Pulse Ox O2 Delivery O2 Flow Rate FiO2 10/23/17 08:02 Room Air 10/23/17 07:10 36.5 60 16 138/81 (100) 97 Room Air 10/23/17 03:30 36.6 67 16 131/70 (90) 97 Room Air 10/22/17 23:37 Room Air 10/22/17 22:50 36.9 80 18 149/67 (94) 96 Room Air 10/22/17 19:15 36.9 85 16 112/70 (84) 93 Room Air 10/22/17 19:00 Room Air 10/22/17 17:50 36.7 94 18 145/81 (102) 93 Room Air 10/22/17 16:40 37.0 78 18 140/64 (89) 94 Room Air 10/22/17 15:42 36.9 75 18 131/77 (95) 94 Room Air 10/22/17 15:20 96 Nasal Cannula 2.0 10/22/17 15:13 36.9 76 16 137/80 (99) 96 Nasal Cannula 2.0 10/22/17 14:45 36.3 75 16 139/78 (98) 94 Nasal Cannula 2.0 10/22/17 14:40 37.0 Laboratory Results Last 24 Hours Test 10/23/17 05:28 White Blood Count 14.39 K/uL Red Blood Count 3.67 M/uL Hemoglobin 11.7 g/dL Hematocrit 34.1 % Mean Corpuscular Volume 92.9 fL Mean Corpuscular Hemoglobin 31.9 pg Mean Corpuscular Hemoglobin Concent 34.3 g/dl RDW Standard Deviation 43.3 fL RDW Coefficient of Variation 12.8 % Platelet Count 268 K/uL Mean Platelet Volume 10.8 fL Prothrombin Time 11.2 SECONDS Prothromb Time International Ratio 1.1 Sodium Level 135 mmol/L Potassium Level 4.3 mmol/L Chloride Level 103 mmol/L Carbon Dioxide Level 27 mmol/L Anion Gap 5.0 mmol/L Blood Urea Nitrogen 22 mg/dl Creatinine 1.09 mg/dl Est Creatinine Clear Calc Drug Dose 77.5 ml/min Estimated GFR () 81.5 Estimated GFR (Non- 70.4 BUN/Creatinine Ratio 20.3 Random Glucose 159 mg/dl Calcium Level 8.9 mg/dl Vancomycin Level Trough 17.1 mcg/ml Assessment and Plan (1) Septic olecranon bursitis of left elbow Assessment & Plan: will continue abx for now, if micro negative, will stop. await path report
[2017-10-23] MEDS ORDERED: RXC5 PO (15:11)
[2017-10-23] MEDS ORDERED: THM100 PO (15:11)
[2017-10-23] MEDS ORDERED: PRD20 PO (15:11)
[2017-10-23 15:18] VITALS: BP 153/77; PULSE 78; TEMP 36.7; O2SAT 97
--- NOTE | 2017-10-23 15:22 | Consultant Recommendations ---
Research Development Director Recommendations Date of Service Oct 23, 2017. Research Development Director Recommendations Keep dressing clean and dry. You may shower if you can keep a waterproof covering over the arm. Change the dressing daily for the next 5 days, then every other day unless you have a fair amount of drainage. Do not put any creams or ointments on the wound. You may do gentle ROM exercises with the elbow. Do not fully flex the elbow at this time. Call if you have increased temp 101.5 or greater, Increased drainage or redness of wound, or any questions you may have. [phone] Best at [facility] in 10-14 days. Call for appointment. [phone]
--- NOTE | 2017-10-23 15:28 | Discharge Instructions ---
Discharge Instructions Date of Service Oct 23, 2017. Admission Reason for Admission: Septic Olecranon Bursitis Of Left Elbow Discharge Discharge Diagnosis / Problem: Acute gout flare of left elbow Discharge Goals Goal(s): Decrease discomfort, Improve function, Improve disease control, Learn about illness, Diagnostic testing, Therapeutic intervention, Prevent Disease Progression Activity Recommendations Activity Limitations: per Instructions/Follow-up section (As per ortho ) . Instructions / Follow-Up Instructions / Follow-Up Gout: Prednisone 20 mg daily until prescription is completed Oxycodone 1 tablet every 4 hours as needed for pain control Thiamine deficiency: Thiamine 100 mg daily Resume all other regular home medications FOLLOW-UPS: Please follow-up with your PCP within 5-7 days Please follow-up with Orthopedics within 2 weeks Please follow-up/keep all of your subspecialty appointments Current Hospital Diet Patient's current hospital diet: AHA Diet (Heart Healthy) Discharge Diet Recommended Diet: AHA Diet (Heart Healthy) Procedures Procedures Performed: Incision and Drainage of Olecranon Bursa Pending Studies Studies pending at discharge: yes List of pending studies: I&D cultures Laboratory Results Hemoglobin A1c Test 10/04/17 11:13 Range/Units Estimated Average Glucose 117 mg/dl Hemoglobin A1c 5.7 H 4.5-5.6 % Lipid Panel Test 10/04/17 08:05 Range/Units Triglycerides Level 110 0-150 mg/dl Cholesterol Level 176 0-200 mg/dl HDL Cholesterol 28 mg/dl Cholesterol/HDL Ratio 6.3 LDL Cholesterol, Calculated 126 mg/dl Medical Emergencies . Who to Call and When: Medical Emergencies: If at any time you feel your situation is an emergency, please call 911 immediately. . Non-Emergent Contact Non-Emergency issues call your: Primary Care Provider, Specialist (orthopedics) Call Non-Emergent contact if: you have a fever, your pain is not controlled, your pain is worsening, your pain is unusual for you, your pain is concerning you, wound has increased drainage, wound has increased redness, wound has increased pain, you have any medication questions . . "Provider Documentation" section prepared by Paola Blanchard. . VTE Core Measure Inpt VTE Proph given/why not?: Unfractionated heparin SQ
--- NOTE | 2017-10-23 15:30 | Discharge Summary ---
Discharge Summary Date of Service Oct 23, 2017. Discharge Summary Admission Date: Oct 17, 2017 at 22:18 Discharge Date: Oct 23, 2017 Discharge Disposition: Home with services Principal Diagnosis: L elbow gout flare Problems/Secondary Diagnoses: Septic vs gout L olecranon bursitis s/p I&D on 10/18 and 10/[address] Samuels and Dr. Best Multivessel CAD w/ NSTEMI in 09/2017 HTN HLD Neuropathy Thiamine deficiency OA obesity h/o gout Procedures: L VENOUS DOPPLER UPR EXT UNIL CLINICAL HISTORY: 67 years-old Male presenting with LEFT ARM PAIN, REDNESS AND SWELLING. TECHNIQUE: Real-time grayscale and color and spectral Doppler ultrasound imaging of the veins of the left upper extremity was performed. Compression and augmentation were also utilized. COMPARISON: None. FINDINGS: Left: Internal jugular vein: Patent. Subclavian vein: Patent. Axillary vein: Patent. Basilic vein: Patent. Brachial vein: Patent. Cephalic vein: Patent. Radial vein: Patent. Ulnar vein: Patent. Other: None. IMPRESSION: No evidence of deep venous thrombosis. Electronically signed by: Iker Cantu M.D. 10/17/2017 8:21 PM Dictated Date/Time: 10/17/2017 8:20 PM The status of this report is Signed. Draft = Not yet reviewed or approved by Radiologist. Signed = Reviewed and approved by Radiologist. L ELBOW MIN 3 VIEWS ROUTINE CLINICAL HISTORY: 67 years-old Male presenting with LEFT, BURSITIS/CELLULITIS. TECHNIQUE: Frontal, oblique, lateral views of the left elbow were obtained. COMPARISON: None. FINDINGS: No joint effusion. Enthesophyte at the insertion of the Achilles tendon. Elbow joint congruent. No acute fracture or malalignment. No significant degenerative change of the elbow joint. IMPRESSION: No acute osseous injury of the left elbow. Electronically signed by: Iker Cantu M.D. 10/17/2017 6:54 PM Dictated Date/Time: 10/17/2017 6:53 PM The status of this report is Signed. Draft = Not yet reviewed or approved by Radiologist. Signed = Reviewed and approved by Radiologist. Operative Report Operative Date Oct 18, 2017. Pre-Operative Diagnosis Left Olecranon Septic Bursitis Post-Operative Diagnosis Same as preoperative diagnosis Procedure(s) Performed Incision and Debridement Left Olecranon Bursa Surgeon Dr. Samuels Phone Screener Surgeon(s) Virgie COUGHLIN Estimated Blood Loss 10ml Findings As above Specimens culture #1 left olecranon aerobic, anerobic gram stain Drains one VIMAL drain Anesthesia Gen. Complication(s) None Operative Report Operative Date Oct 22, 2017. Pre-Operative Diagnosis Left Septic Olecranon Bursitis Post-Operative Diagnosis Left Septic Olecranon Bursitis Procedure(s) Performed Incision and Drainage of Olecranon Bursa Surgeon Dr. Best Phone Screener Surgeon(s) none Estimated Blood Loss 25 ml Findings see dictated op note Specimens microbiology 1. Left Olecranon Bursa Fluid for Crystals 2. Left Olecranon Bursa Fluid 3. Left Olecranon Bursa Tissue Drains one VIMAL drain Anesthesia Gen. Complication(s) None Consultations: Orthopedics Cardiology Medication Reconciliation New Medications: Oxycodone HCl (Oxycodone HCl) 5 Mg Tab 5 MG PO Q4H PRN for Pain for 3 Days, #18 TAB Prednisone (Prednisone) 20 Mg Tab 20 MG PO DAILY for 6 Days, #6 TAB Thiamine HCl (Vitamin B-1) 100 Mg Tab 100 MG PO QAM for 30 Days, #30 TAB Continued Medications: Acetaminophen (Tylenol) 500 Mg Tab 1000 MG PO Q6H PRN for Pain, TAB Aspirin (Aspirin EC Low Dose) 81 Mg Ectab 81 MG PO QAM Atorvastatin (Lipitor) 80 Mg Tab 80 MG PO DAILY, TAB Gabapentin (Neurontin) 300 Mg Cap 300 MG PO HS, CAP Losartan Potassium (Cozaar) 50 Mg Tab 50 MG PO DAILY, TAB Nitroglycerin (Nitrostat) 0.4 Mg Tab 0.4 MG UT UD PRN for Chest Pain, BTL Referrals At Discharge Follow up Referrals: Orthopedics Referral - Within 2 Weeks with Rashid Best D.O. Discharge Exam Review of Systems: Constitutional: No fever, No chills, No sweats, No weakness, No fatigue Eyes: No worsening of vision ENT: No hearing loss Respiratory: No cough, No shortness of breath, No hemoptysis Cardiovascular: No chest pain, No edema, No palpitations Abdomen: No pain, No nausea, No vomiting, No diarrhea, No constipation Musculoskeletal: No joint pain, No muscle pain, No swelling, No calf pain Genitourinary - Male: No hematuria, No dysuria Neurologic: No weakness, No numbness/tingling Psychiatric: No depression symptoms, No anxiety Endocrine: No fatigue Hematologic / Lymphatic: No abnormal bleeding/bruising Integumentary: No rash, No itch, No new/changing skin lesions Physical Exam: General Appearance: no apparent distress, + obese Eyes: normal inspection, PERRL ENT: hearing grossly normal Neck: supple Respiratory/Chest: lungs clear, no respiratory distress, no accessory muscle use Cardiovascular: regular rate, rhythm Abdomen / GI: normal bowel sounds, non tender, soft Extremities: no calf tenderness, no pedal edema, + pertinent finding (L arm in MUNIR wrap; hemovac w/ serosanguinous output) Neurologic/Psychiatric: alert, normal mood/affect, oriented x 3 Skin: normal color, warm/dry, no rash Hospital Course Admission H&P: 67 y/o M CAD - recent NSTEMI, HTN, HPL. Developed some swelling of his L elbow 3-4 weeks prior. The area has become erythematous and tender over the past 2 days. He describes feeling generally ill since that time. He could not confirm fevers or rigors. Physical Exam Vital Signs Date Time Temp Pulse Resp B/P (MAP) Pulse Ox O2 Delivery O2 Flow Rate FiO2 10/17/17 21:25 82 15 137/78 98 Room Air 10/17/17 19:30 20 162/98 100 Room Air 10/17/17 16:49 36.7 77 17 131/84 98 Room Air General Appearance: WD/WN Head: normocephalic Eyes: normal inspection ENT: normal ENT inspection, pharynx normal Neck: supple, no JVD Respiratory/Chest: chest non-tender, lungs clear, normal breath sounds Cardiovascular: regular rate, rhythm, no edema, no gallop Abdomen/GI: normal bowel sounds, non tender, soft Back: normal inspection Extremities/Musculoskelatal: + pertinent finding (There is erythema and tenderness dirctly over the L elbow with mild cellulitis extending to the arm and forearm - full ROM is maintained without significant pain on movement) Neurologic/Psych: housing development specialist II-XII nml as tested, no motor/sensory deficits, alert, normal mood/affect, oriented x 3 Skin: + pertinent finding (There is erythema and tenderness dirctly over the L elbow with mild cellulitis extending to the arm and forearm) Hospital Course: Septic vs gout L olecranon bursitis s/p I&D on 10/18 and 10/[address] Samuels and Dr[address] Best: - Admitted to med/surg - ID following- IV Vancomycin + Rocephin- path positive for gout, antibiotics stopped - BCx- NGTD - I&D culture from 10/17- NG; repeat cultures on 10/22 pending, pathology +gout - ?Gout- uric acid WNL, crystal analysis pending, tophaceous material at drain site- start Prednisone 20 mg daily (started on 10/23) x7 days - Tylenol PO, Roxicodone PO, Tramadol PO PRN for pain management - Follow CBC -- Leukocytosis increased to 14 today- likely postop response -- H&H- STABLE - Orthopedics following Multivessel CAD w/ NSTEMI in 09/2017, HTN, HLD- STABLE: - Continue Losartan 50 mg daily, Lipitor 80 mg daily, ASA daily - Scheduled for f/u at [facility] 11/01 for possible CABG - Cardiology consulted for surgical clearance Neuropathy: Continue Gabapentin 300 mg HS Thiamine deficiency: Thiamine 100 mg daily GI prophylaxis: Protonix DVT prophylaxis: Chemical anticoagulation held due surgical procedures Code Status: LEVEL I, FULL Dispo: Discharge to home w/ [facility] Total Time Spent: Greater than 30 minutes This includes examination of the patient, discharge planning, medication reconciliation, and communication with other providers. Discharge Instructions Please refer to the electronic Patient Visit Report (Discharge Instructions) for additional information. Follow-Up Please follow-up with your PCP within 5-7 days Please follow-up with Orthopedics within 2 weeks Please follow-up/keep all of your subspecialty appointments Wound care instructions: Changer Fixer Recommendations Keep dressing clean and dry. You may shower if you can keep a waterproof covering over the arm. Change the dressing daily for the next 5 days, then every other day unless you have a fair amount of drainage. Do not put any creams or ointments on the wound. You may do gentle ROM exercises with the elbow. Do not fully flex the elbow at this time. Call if you have increased temp 101.5 or greater, Increased drainage or redness of wound, or any questions you may have. [phone] Best at [facility] in 10-14 days. Call for appointment. [phone] Additional Copies To Florentin Sultana D.O. Reviewed: Pt Seen/Exam by Me History Physician Phone Screener Supervision Note: I interviewed and examined the patient. Discussed with CED Blanchard and agree with findings and plan as documented in the note. Any exceptions or clarifications are listed here: Patient doing very well today. He has no complaints. Pain is controlled. He has been afebrile. Discussed the case with infectious disease. The pathology report is showing that the material removed from the olecranon bursa was indeed consistent with gout. The wound cultures all still remain with no growth. Orthopedics discontinued the drain from his elbow and he is stable for discharge to home with home visiting nurse. Vitals reviewed NAD, sitting in chair at bedside, AAOx3 RRR no mgr CTAB no wcr Abd +BS soft Ext: LUE with large dressing and MUNIR wrap in place, drain coming from elbow with small amount bloody drainage, fingers on left N/V/I; no edema in legs 67 yo male with a h/o CAD, HTN, HL, peripheral neuropathy, thiamine deficiency, here with left olecranon bursitis secondary to gout -No growth on cultures on both occasions from incision and drainage -To treat the gout, we started him on prednisone 20mg daily x 7 days; avoiding NSAIDs given his severe CAD and need for possible CABG -CAD-stable, no acute issues, continue ASA, losartan, statin. Review of previous admission shows not on beta clarence due to bradycardia. He has not had bradycardia here, so could probably add on low dose metoprolol but will defer to cardiology at his upcoming appointment. Has eval for CABG next week. -Thiamine deficiency-B1 level severely low at <7, performed for peripheral neuropathy--> started thiamine 100mg po daily -Stable for discharge to home today with home health Documented By: Ayanna Harrison
[2017-10-23 16:28] VITALS: BP 153/77; PULSE 78; TEMP 36.7; O2SAT 97
== END 2017-10-23 17:15 | disposition home health service (06) | DRG 500 ==
LOC: C.EDB 16:47 → C.MSN 22:18 → ENRESERV 23:10
PROVIDERS: ADMIT Internal Medicine; ATTEND Family Medicine
PROC: 0M940ZZ Drainage of Left Elbow Bursa and Ligament, Open Approach (ICD-10-PCS; principal; 2017-10-18 10:45)
DX: M70.22 Olecranon bursitis, left elbow (principal); I21.4 Non-ST elevation (NSTEMI) myocardial infarction; I25.10 Atherosclerotic heart disease of native coronary artery without angina pectoris; E78.5 Hyperlipidemia, unspecified; I10 Essential (primary) hypertension; E66.9 Obesity, unspecified; Z79.82 Long term (current) use of aspirin; Z87.891 Personal history of nicotine dependence; I25.2 Old myocardial infarction; Z68.34 Body mass index [BMI] 34.0-34.9, adult

== ENCOUNTER 2019-04-18 08:29 | Inpatient (IN) ==
--- NOTE | 2019-04-11 13:13 | Anesthesiology Consultation ---
Date of Service April 11, 2019 Assessment & Plan (1) Encounter for pre-operative examination: - Cardio: 03/18/19: Complaints of several months of progressive exertional dyspnea with associated cough and night sweats. Noted decreased left sided breath sounds on exam. "He appears well perfused without signs of vascular congestion. Recommend CXR. If no evidence of pulmonary process accounting for dyspnea could consider ischemic workup. [CXR and subsequent chest CT done noting pleural effusion. - Surgeon (Dr. Bradshaw): 04/07/19: Symptoms due to seem consistent with chronic pleural effusion. Recommends stress testing prior to surgery. "If this shows that there is no evidence of myocardial ischemia, we will offer him a left thoracoscopy with decortication." Stress test done 04/10/19- Although unable to reach target heart rate, no myocardial ischemia noted on exercise stress echo at 75% MPHR (report reviewed by patient's drum operator, Dr. Hidalgo and surgeon Dr. Bradshaw). To proceed with left VATs with decortication. Chart Review Chart Review: Acceptable Risk for Surgery and Patient NOT seen in Pre Admission Testing History Surgery Operation Date: 04/18/19 09:55 Proposed Procedures p Left Video Assisted Thoracoscopy with Decortication - Jerome Bradshaw MD, FACS Height/Weight Height: 5 ft 8 in Weight: 102.058 kg Allergies Allergy/AdvReac Type Severity Reaction Status Date / Time No Known Allergies Allergy Verified 04/11/19 10:46 Medications Home Medications Medication Instructions Recorded Confirmed Last Taken Meloxicam/Gabapentin/Creocaine 1 - 2 pump TOPICAL HS 04/11/19 04/11/19 Unknown acetaminophen [Tylenol Extra 1,000 mg PO Q6H PRN 04/11/19 04/11/19 Unknown Strength] allopurinol 300 mg PO QAM 04/11/19 04/11/19 Unknown aspirin [Aspir-81] 81 mg PO QAM 04/11/19 04/11/19 Unknown atorvastatin 80 mg PO HS 04/11/19 04/11/19 Unknown ciclopirox 1 applic TOPICAL HS 04/11/19 04/11/19 Unknown gabapentin 300 mg PO HS 04/11/19 04/11/19 Unknown losartan 25 mg PO HS 04/11/19 04/11/19 Unknown metoprolol tartrate 25 mg PO BID 04/11/19 04/11/19 Unknown nitroglycerin [Nitrostat] 0.4 mg SUBLINGUAL UD PRN 04/11/19 04/11/19 Unknown pantoprazole [Protonix] 40 mg PO DAILY PRN 04/11/19 04/11/19 Unknown Past Medical History Medical History Arthritis CAD (coronary artery disease) S/P CABG X3 (10/2017) GERD (gastroesophageal reflux disease) Gout Kidney stones Myocardial Infarction 2016 Obesity SOB (shortness of breath) on exertion Past Surgical History Surgical History History of coronary artery bypass graft CABG X3 (10/2017) History of cystoscopy WITH STENT History of elbow surgery Left elbow I& : LMA#5 at [facility] History of open reduction and internal fixation (ORIF) procedure ANKLE Social History Smoking Status: Former smoker Do You Dip or Chew Tobacco: No Smoking End Date: QUIT 30 YRS AGO Hx Alcohol Use: No Hx Substance Use: No substance use type: does not use Testing Laboratory Results 04/01/19 WBC 9.75 H/H 13.1/39.5 PLATELETS 208 SODIUM 140 POTASSIUM 3.8 CHLORIDE 107 CO2 25 BUN 12 CREATININE 0.91 GLUCOSE 102 PT 10.5 PTT 26.9 INR 1.0 Electrocardiogram Date: 07/23/18 SR at 69bpm. Low QRS voltage. Chest X-Ray Date: 03/18/19 Left pleural effusion, likely at least moderate in size. Left basilar opacity, including a round density which may reflect round atelectasis. However, consolidation or less likely mass could appear similar. No evidence for pulmonary edema. Echocardiogram Date: 10/05/17 LVEF 60-65%. No RWMA. No significant valvular disease. Mild cLVH. Stress Test Date: 04/10/19 Type: exercise No exercise induced wall motion abnormalities at 75% MPHR but unable to rule out at higher heart rate due to inability to reach target heart rate. 7 METS. Environmental Analyst exercise induced ST changes on EKG at peak stress. No chest pain. Stress terminated due to dyspnea. LVEF 55-60%. No significant valvular pathology. Cardiac Catheterization Date: 10/05/17 Multivessel CAD. 90% ostial cx stenosis. LAD 60-70% Other Testing Chest CT: 03/26/19: Small mildly loculated left pleural effusion with left basilar consolidation suggestive of compressive/round atelectasis. A superimposed pneumonia would be difficult to exclude. Cardiomegaly with prior me jacqueline sternotomy and CABG. Most of the scattered solid pulmonary nodules which are again noted bilaterally measuring up to 6 mm appear unchanged, some of which have decreased or resolved in the interval. There is however a 7 mm solid and groundglass nodule of the basal right lower lobe which appears to be new from prior study. Follow-up guidelines are provided below. Cholelithiasis.
[~2019-04-18 08:29] MED LIST changes: -ASPEC81 PO; -ATOR-26 PO; +ATROPINE SULFATE 0.1 MG/ML 10ML SYR IV PRN; +HYDROmorphone INJ 1 MG/ML SYRINGE IV PRN; +LR 15ML/HR IV SCH; -NTRSLP4 SL; +ONDANSETRON INJ 2 MG/ML 2 ML VIAL IV PRN; +ePHEDrine sulfate 50 MG/ML AMP IV PRN
[2019-04-18] MEDS ORDERED: MIDAZOLAM HCL 1 MG/ML 2ML VIAL ONE (09:46)
[2019-04-18] MEDS ORDERED: fentaNYL citrate 100 MCG/2 ML VIAL ONE ×3 (09:46→16:18)
[2019-04-18] MEDS ORDERED: LIDOCAINE HCL 2% 2 ML VIAL/AMP(20MG/ML) INFIL ONE (09:46)
[2019-04-18] MEDS ORDERED: PROPOFOL IV EMULSION 10 MG/ML 20 ML VIAL IV ONE (09:46)
[2019-04-18] MEDS ORDERED: ONDANSETRON INJ 2 MG/ML 2 ML VIAL ONE (09:46)
[2019-04-18] MEDS ORDERED: ROCURONIUM BROMIDE 10 MG/ML 5 ML VIAL ONE ×2 (09:46→13:15)
--- NOTE | 2019-04-18 11:56 | History & Physical Bridge Note ---
Date of Service April 18, 2019 History & Physical Bridge Note I have examined the patient, reviewed the History & Physical and in the interval since the performance of the History & Physical I have noted the following changes of clinical significance: no changes noted
[2019-04-18] MEDS ORDERED: CEFAZOLIN 2,000 MG/15 ML IV PUSH IV ONE (12:16)
[2019-04-18] MEDS ORDERED: BUPIVACAINE LIPOSOME 1.3% 266 MG/20 ML VIAL ONE (12:27)
[2019-04-18] MEDS ORDERED: BUPIVACAINE 0.5 % 5 MG/1 ML MPF 30ML VIAL ONE (12:27)
[2019-04-18] MEDS ORDERED: SODIUM CHLORIDE 0.9% PF 50 ML VIAL ONE (12:27)
[2019-04-18] MEDS ORDERED: NEOSTIGMINE METHYLSULFATE 5 MG/5 ML SYR ONE (15:18)
[2019-04-18] MEDS ORDERED: GLYCOPYRROLATE 0.2 MG/ML VIAL ONE ×2 (15:18)
--- NOTE | 2019-04-18 15:31 | Post Operative Brief Note ---
Immediate Post Op Note v1 Date of Surgery April 18, 2019 Pre & Post Diagnosis Operation Date: 04/18/19 09:55 Pre-Op Diagnosis: Left Pleural Effusion Post-Op Diagnosis: Left Pleural Effusion Procedure Operation Date: 04/18/19 09:55 Actual Procedures p Left Video Assisted Thoracoscopy with Decortication(Left) - Jerome Bradshaw MD, FACS Surgeon Jerome Bradshaw MD, FACS Sql Manager Nilam COUGHLIN Estimated Blood Loss 100 Findings Consistent with Post-Op Diagnosis Drains Chest Tube and Fung Catheter
[2019-04-18] MEDS ORDERED: METOCLOPRAMIDE HCL INJ 5 MG/ML 2 ML VIAL IV ONE (15:45)
--- NOTE | 2019-04-18 15:59 | XRay Report ---
XR chest 1V portable CLINICAL HISTORY: decortication COMPARISON STUDY: Chest CT March 26, 2019. FINDINGS: Left-sided chest tubes are in place. Left basilar opacity is noted with a possible trace le ft pleural effusion. No pneumothorax is visualized. There may be a trace right pleural effusion. Ther e are median sternotomy wires. Mild cardiomegaly is noted. IMPRESSION: Left-sided chest tubes in place. Mild left basilar opacity with possible trace left pleu ral effusion. No pneumothorax. Electronically signed by: Luis Good M.D. 04/18/2019 3:58 PM
[2019-04-18] MEDS: fentaNYL citrate 100 MCG/2 ML VIAL IV PRN ×3 (16:20→16:35)
--- NOTE | 2019-04-18 17:08 | Anesthesiology Progress Note ---
Date of Service April 18, 2019 Anesthesia Post Procedure Vital Signs Vital Signs: Temp Pulse Pulse Resp BP Pulse Ox 04/18/19 17:00 64 19 138/84 99 04/18/19 16:50 36.1 C L 61 17 131/79 97 04/18/19 16:40 55 L 12 139/76 93 04/18/19 16:30 59 L 12 135/81 98 04/18/19 16:20 56 L 12 145/68 H 100 04/18/19 16:10 52 L 16 142/78 H 100 04/18/19 16:00 54 L 15 141/68 H 100 04/18/19 15:51 36.4 C L 60 15 121/67 100 04/18/19 09:04 36.8 C 58 L 20 148/90 H 97 04/18/19 08:52 36.8 C 58 L 20 148/90 H 97 Pain Intensity Left Posterior Chest: Pain Intensity: 4 Transfer of Care Handoff Completed per policy Notes Mental Status: alert / awake / arousable and participated in evaluation Patient Amnestic to Procedure: Yes Nausea / Vomiting: adequately controlled Pain: adequately controlled Airway Patency, RR, SpO2: stable & adequate BP & HR: stable & adequate Hydration State: stable & adequate Anesthetic Complications: no major complications apparent and Pt Satisfied with anesthetic care
[2019-04-18] MEDS ORDERED: PANTOprazole 40 MG TAB PO PRN (17:40)
[2019-04-18] MEDS ORDERED: ONDANSETRON INJ 2 MG/ML 2 ML VIAL IV PRN (17:40)
[2019-04-18] MEDS ORDERED: NITROGLYCERIN SL 0.4 MG/TAB TAB SL PRN (17:40)
[2019-04-18] MEDS ORDERED: MoRPHine SULFATE 2 MG/ML CARP IV PRN (17:40)
[2019-04-18] MEDS ORDERED: OXYCODONE HCL IR 5 MG TAB (IMMEDIATE RELEASE) PO PRN (17:40)
[2019-04-18] MEDS: ACETAMINOPHEN 1,000 MG/100 ML VIAL IV SCH (19:27)
[2019-04-18] MEDS: D5W AND 1/2NSS 1,000 ML IV SCH (19:47)
[2019-04-18] MEDS: GABAPENTIN 300 MG CAP PO SCH (20:41)
[2019-04-18] MEDS: METOPROLOL TARTRATE 25 MG TAB PO SCH (20:42)
[2019-04-18] MEDS: ATORVASTATIN 40 MG TAB PO SCH (20:42)
[2019-04-18] MEDS: DOCUSATE SODIUM 100 MG CAP PO SCH (20:42)
[2019-04-18] MEDS: LOSARTAN POTASSIUM 25 MG TAB PO SCH (20:42)
--- NOTE | 2019-04-18 22:32 | Operative Report ---
DATE OF OPERATION: 04/18/2019 PREOPERATIVE DIAGNOSIS: Complicated left pleural effusion with trapped lung. POSTOPERATIVE DIAGNOSIS: Complicated left pleural effusion with trapped lung. PROCEDURE: Left thoracoscopy with extensive decortication of left upper and lower lobes. SURGEON: Jerome Bradshaw MD SENIOR INFORMATICA DEVELOPER: CED Mccarthy (Mr. Whitlock was present for the entire case and was instrumental in holding the camera and closing the skin incisions). ANESTHESIA: General anesthesia with endotracheal intubation using double lumen tube. SPECIFICS OF PROCEDURE AND FINDINGS: Gio Roque is a very nice 68-year-old male who presented several months after open heart surgery with a left internal mammary artery bypass graft with a complicated left pleural effusion. The interesting thing is that I saw an x-ray on him a few months after surgery and he had no fluid on his left side at all. 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 I saw the patient with his in the office. We had a long talk and I felt that a thoracoscopic decortication could be offered. On 04/18/2019, the patient was brought to the operating room and underwent an uncomplicated left thoracoscopy. It was a difficult case because the lung was so stuck, but we got into a good plane and we were able to decorticate the entire lower lobe and most of the upper lobe and down into the fissure. This did not appear to be malignant. We did send it off for culture and cytology. His lung expanded nicely at the end. He has a small air leak. We really did not lose much fluid. He tolerated it well. DESCRIPTION OF PROCEDURE: The patient was brought to the operating room and laid in the supine position. General anesthesia was induced. Endotracheal intubation was performed. After turning the patient in the right lateral decubitus position, his left chest was prepped and draped in usual sterile fashion. After appropriate timeout had been called and prophylactic antibiotics given, a 5-mm incision was made for a 5-mm port posterior to the scapula. Upon entering, it could be seen that we were above the cavity and there really were not that much in the way of adhesions. We were able to free some of these flimsy adhesions up; however, there was a peel on the lung. We did insufflate CO2. I then made an anterior 5 mm port. Finally, I was able to take down enough adhesions along the diaphragm. Anteriorly, I could a 12 mm port. It should be noted that we had mixed 266 mg of Exparel and 20 mL of solution with 30 mL of 0.5% bupivacaine in 250 mL of normal saline. We injected each of the port incisions with this and then upon entering the chest, we performed an intercostal block from the 2nd to the 11th rib by injecting this Exparel solution for an intercostal block. After we had made the incisions, I stopped insufflating CO2 and changed the 5-mm ports to 10-mm trocar ports. I then opened up the inferior incision a bit more so we could use regular thoracoscopic instruments. I then began the tedious task of freeing up the lung. The upper lobe had the lower portion along the fissure and then going up to the apex laterally encased with a peel which we meticulously removed. We were able to dissect out the fissure which was almost completed quite nicely. After we removed all of this and we were able to free it up, it could be seen that the lung had been completely open. We really did not have an air leak up here. There were a couple 100 mL of fluid in the cavity around the lower lobe and we sent this off for cytology and for microbiology studies. I then did a partial pleurectomy by removing some of these thicker areas but then the real work came with decorticating the left lower lobe. It was completely encased in a very tough white peel. However, we were able to get this off completely. I meticulously worked to remove this with a minimal of parenchymal injuries. We really did not get any bleeding. I identified the pericardium, phrenic nerve, and the diaphragm and cleaned out the diaphragmatic sulcus and along the base of the diaphragm and finally freed up the entire lobe. We irrigated out the chest. We really did not have much in the way of bleeding. There was a small air leak at the conclusion of the case, but I did not feel it was large enough to warrant a repair. A 24-Thai chest tube was placed through the assistance incision near the diaphragm and directed towards the apex under thoracoscopic guidance. I also made a small incision near this incision posteriorly and put a PleurX catheter to drain the patient's diaphragmatic and posterior areas. These were sutured in place with heavy silk suture. Each of the incisions had the muscle layers closed with 0 Vicryl. A 4-0 Monocryl was used in running subcuticular fashion to approximate the wound edges. The patient tolerated it well and was extubated in the room. I attest to the content of the Intraoperative Record and any orders documented therein. Any exception s are noted below.
[2019-04-19] MEDS: METOCLOPRAMIDE HCL INJ 5 MG/ML 2 ML VIAL IV SCH ×2 (00:16→08:20)
[2019-04-19] MEDS: ACETAMINOPHEN 1,000 MG/100 ML VIAL IV SCH (02:55)
[2019-04-19] MEDS: D5W AND 1/2NSS 1,000 ML IV SCH (05:41)
[2019-04-19 06:24] LABS: Basophils # (auto) 0.05 K/uL (0-0.2); Basophils % (auto) 0.3 %; Eosinophils % (auto) 1.3 %; Hematocrit (blood only) 38.5 % (42-52); Hemoglobin 12.8 g/dL (14.0-18.0); Immature Granulocytes # (auto) 0.05 K/uL (0.00-0.02); Immature Granulocytes % (auto) 0.3 %; Lymphocytes # (auto) 2.03 K/uL (1.2-3.4); Mean Corpuscular Volume 95.3 fL (80-100); Mean Platelet Volume 11.6 fL (7.4-10.4); Monocytes # (auto) 1.38 K/uL (0.11-0.59); Monocytes % (auto) 8.9 %; Neutrophils # (auto) 11.86 K/uL (1.4-6.5); Neutrophils % (auto) 76.2 %; Platelet Count 220 K/uL (130-400); RDW Coefficient of Variation 14.2 % (11.5-14.5); RDW Standard Deviation 49.6 fL (36.4-46.3); Red Blood Count 4.04 M/uL (4.7-6.1); White Blood Count 15.57 K/uL (4.8-10.8)
[2019-04-19 06:34] LABS: INR 1.1 (0.9-1.1); Partial Thromboplastin Ratio 1.1; Partial Thromboplastin Time 28.8 Seconds (21.0-31.0); Prothrombin Time 11.1 Seconds (9.0-12.0)
[2019-04-19 06:39] LABS: Mean Corpuscular Hgb Conc 33.2 g/dL (32-36)
[2019-04-19 06:59] LABS: BUN Creatinine Ratio 12.5 (10-20); Calcium 8.5 mg/dl (8.5-10.1); Creatinine Clr Calc Pharmacy 78.2 ml/min; Est GFR (African American) 83.8; Est GFR (Non-African American) 72.3; Potassium 4.1 mmol/L (3.5-5.1)
--- NOTE | 2019-04-19 07:02 | XRay Report ---
XR chest 1V portable HISTORY: Postop. decortication COMPARISON: Chest 04/18/2019. FINDINGS: Left-sided chest tube terminates in the left lung apex. Questionable tiny left basilar pneu mothorax. Left basilar densities persist. The right lung remains clear. The heart is stable in size. There are poststernotomy changes. IMPRESSION: Left-sided chest tube is in place. There appears to be a tiny left basilar pneumothorax. Electronically signed by: Tutu Beaver M.D. 04/19/2019 7:00 AM
[2019-04-19] MEDS: DOCUSATE SODIUM 100 MG CAP PO SCH ×2 (08:21→21:06)
[2019-04-19] MEDS: ALLOPURINOL 300 MG TAB PO SCH (08:21)
[2019-04-19] MEDS: ENOXAPARIN INJ 40 MG/0.4 ML SYR SQ SCH (08:21)
[2019-04-19] MEDS: METOPROLOL TARTRATE 25 MG TAB PO SCH ×2 (08:21→21:08)
[2019-04-19] MEDS: ASPIRIN 81 MG ECTAB PO SCH (08:21)
--- NOTE | 2019-04-19 08:48 | Surgery Progress Note ---
Date of Service April 19, 2019 Assessment & Plan (1) Pleural effusion: -pt. is POD # 1 decortication -will continue chest tube today (a0 cc last shift) as well as daily drainage of pleurex (75 cc this am) -CXR shows a small left basilar pneumothorax (may be component of trapped lung) -continue use of IS, ambulation, coughing, deep breathing -continue pain control measures -lovenox is in place for DVT prevention Subjective Pt. notes his breathing feels better than before surgery. He is tolerating diet. He has ambulated multiple times in hallway. He noted some difficulty voiding last night but this has resolved. Discussed with RN and no concerns noted. Physical Exam Constitutional: well developed and well nourished; no acute distress Respiratory: normal respiratory effort; does not use accessory muscles BS have decreased sounds at bases, L>R Gastrointestinal (Abdomen): soft and non-tender Musculoskeletal: no calf tenerness Results & Data Vital Signs (Past 12 Hours) Vital Signs Temp Pulse Resp BP Pulse Ox 04/19/19 05:59 37.1 C 72 16 106/67 93 04/19/19 03:30 37.2 C 71 16 117/75 93 04/19/19 01:30 37.2 C 88 16 127/76 95 04/18/19 23:30 37.2 C 87 16 128/73 93 04/18/19 21:44 37.0 C 85 17 127/81 95
[2019-04-19] MEDS: ACETAMINOPHEN 325 MG TAB PO SCH ×3 (10:00→22:28)
--- NOTE | 2019-04-19 10:07 | Anesthesiology Progress Note ---
Date of Service April 19, 2019 Anesthesia Post Procedure Vital Signs Vital Signs: Temp Pulse Pulse Resp BP Pulse Ox 04/19/19 09:26 37.0 C 79 16 117/71 93 04/19/19 05:59 37.1 C 72 16 106/67 93 04/19/19 03:30 37.2 C 71 16 117/75 93 04/19/19 01:30 37.2 C 88 16 127/76 95 04/18/19 23:30 37.2 C 87 16 128/73 93 04/18/19 21:44 37.0 C 85 17 127/81 95 04/18/19 20:40 36.8 C 106 H 17 128/77 95 04/18/19 19:29 36.6 C 86 17 166/84 H 96 04/18/19 18:29 36.4 C L 84 16 153/82 H 98 04/18/19 18:00 36.5 C 82 17 169/99 H 98 04/18/19 17:30 36.7 C 73 18 137/78 97 04/18/19 17:15 36.5 C 67 21 148/80 H 99 04/18/19 17:00 64 19 138/84 99 04/18/19 16:50 36.1 C L 61 17 131/79 97 04/18/19 16:40 55 L 12 139/76 93 04/18/19 16:30 59 L 12 135/81 98 04/18/19 16:20 56 L 12 145/68 H 100 04/18/19 16:10 52 L 16 142/78 H 100 04/18/19 16:00 54 L 15 141/68 H 100 04/18/19 15:51 36.4 C L 60 15 121/67 100 Pain Intensity Left Posterior Chest: Pain Intensity: 4 Transfer of Care Handoff Completed per policy Notes Mental Status: alert / awake / arousable and participated in evaluation Patient Amnestic to Procedure: Yes Nausea / Vomiting: adequately controlled Pain: adequately controlled Airway Patency, RR, SpO2: stable & adequate BP & HR: stable & adequate Hydration State: stable & adequate Anesthetic Complications: no major complications apparent and Pt Satisfied with anesthetic care
[2019-04-19] MEDS: ATORVASTATIN 40 MG TAB PO SCH (21:06)
[2019-04-19] MEDS: GABAPENTIN 300 MG CAP PO SCH (21:06)
[2019-04-19] MEDS: LOSARTAN POTASSIUM 25 MG TAB PO SCH (21:08)
[2019-04-20] MEDS: ACETAMINOPHEN 325 MG TAB PO SCH ×2 (03:55→09:11)
--- NOTE | 2019-04-20 07:16 | XRay Report ---
XR chest 1V portable HISTORY: 68 years-old Male decortication postoperative changes of the left lung. Follow-up study. COMPARISON: Chest radiograph 04/19/2019 TECHNIQUE: Portable AP view the chest FINDINGS: Postoperative changes of the left lung. Left-sided chest tube terminates adjacent to the left upper l obe. Persistent left lung base opacities with probable small left pleural effusion. The previously no jp left basilar pneumothorax is not definitively seen on today's study. Cardiomegaly with prior medi an sternotomy. The right lung is generally clear. No overt pulmonary edema. Degenerative changes of t he shoulders and spine. IMPRESSION: 1. Postoperative changes of the left lung with stable positioning of the left-sided chest tube. 2. Previously noted tiny left basilar pneumothorax is not definitively seen on today's study. The above report was generated using voice recognition software. It may contain grammatical, syntax o r spelling errors. Electronically signed by: Clive Cuevas M.D. 04/20/2019 7:15 AM
[2019-04-20] MEDS: DOCUSATE SODIUM 100 MG CAP PO SCH (08:00)
[2019-04-20] MEDS: ALLOPURINOL 300 MG TAB PO SCH (08:00)
[2019-04-20] MEDS: ENOXAPARIN INJ 40 MG/0.4 ML SYR SQ SCH (08:01)
--- NOTE | 2019-04-20 09:00 | XRay Report ---
XR chest 1V portable HISTORY: 68 years-old Male tube removal status post removal of the left-sided chest tube COMPARISON: Chest radiograph of same day at 6:47 AM TECHNIQUE: Portable AP view of the chest FINDINGS: Status post removal of the left-sided chest tube. Postoperative changes of the left lung with volume loss and possible small left pleural effusion with unchanged left basilar opacities. No definite pneu mothorax or overt pulmonary edema. Minimal subsegmental atelectasis/scarring about the lateral right lung base. Cardiomegaly with prior median sternotomy. Degenerative changes of the shoulders and spine . Catheter projects over the abdominal left upper quadrant. IMPRESSION: 1. Postoperative changes of the left lung redemonstrated. 2. Status post removal of the left-sided chest tube without pneumothorax identified. The above report was generated using voice recognition software. It may contain grammatical, syntax o r spelling errors. Electronically signed by: Clive Cuevas M.D. 04/20/2019 8:57 AM
[2019-04-20] MEDS: ASPIRIN 81 MG ECTAB PO SCH (09:10)
[2019-04-20] MEDS: METOPROLOL TARTRATE 25 MG TAB PO SCH (09:10)
--- NOTE | 2019-04-20 10:40 | Discharge Summary ---
ADMISSION DIAGNOSES: Complex left pleural effusion with trapped lung. DISCHARGE DIAGNOSES: Complex left pleural effusion with trapped lung. HOSPITAL COURSE: The patient was seen and evaluated by Dr. Bradshaw as an outpatient secondary to a complex pleural effusion. Dr. Bradshaw felt the best course of action would be to bring the patient to the hospital and he did so on date of admission where he performed a left video-assisted thoracoscopic decortication of the patient's left lung. At time of surgery, the patient had a chest tube placed as well as a PleurX catheter. The patient's chest tube was managed in the appropriate fashion, was not noted to have an air leak and was draining minimally and was discharged on postop day #2. A post-pull chest x-ray was performed that did not identify any pneumothorax. The patient was noted to have some left lung volume loss at the left base with small left pleural effusion following removal of his chest tube. The patient did have a PleurX catheter in place, which on the date of discharge drained 75 mL. Arrangements were made for the patient to go home with a PleurX catheter. He was given a PleurX catheter starter kit and social worker clinical with setting of visiting nurses to assist patient with draining his PleurX catheter. His postoperative course was otherwise uneventful. He is tolerating a regular diet. He was voiding without difficulty and ambulating in the hallway, was not requiring any oxygen. It is noteworthy to mention the patient did have postoperative labs where he was noted to only have a slight anemia with a hemoglobin of 12.8 and hematocrit of 38.5. He did not have any evidence of acute renal failure as his creatinine remained within normal range postoperatively. Surgical pathology specimens were pending at the time of discharge. Operative cultures did not show any evidence of growth, but final cultures were pending at the time of discharge. The patient was deemed stable for discharge home on postop day #2, which is 04/20/2019. All the patient's home medications were unchanged and he was provided with a prescription for Ultram to take as needed for pain. The patient was instructed that he could remove his incisional dressings in 3 days. He was told take sponge baths as he needed to keep his PleurX catheter dry until seen by Dr. Bradshaw. Our office will call him for an approximately 1 week appointment and he was told to have a chest x-ray prior to this appointment. He was told he should walk daily and not drive until cleared to do so by Dr. Bradshaw. As noted, he was given both written and verbal instructions and was deemed stable for discharge home.
== END 2019-04-20 12:28 | disposition home health service (06) | DRG 165 ==
LOC: ASU 08:29 → 3W 15:34